=== PATIENT | female | born 1955 | race Caucasian/White ===

== ENCOUNTER → 2017-05-04 09:34 | Outpatient (CLI) | payer BC, SELFPAY ==
[2017-05-04 11:17] LABS: Alanine Aminotransferase 18 U/L (12-78); Albumin Level 3.8 gm/dL (3.4-5.0); Albumin/Globulin Ratio 1.1 (1.1-1.8); Alkaline Phosphatase 103 U/L (46-116); Anion Gap 10.5 mEq/L (5-15); Aspartate Amino Transferase 14 U/L (15-37); Bilirubin,Total 0.4 mg/dL (0.2-1.0); Blood Urea Nitrogen 15 mg/dL (7-18); Calcium 8.7 mg/dL (8.5-10.1); Carbon Dioxide 31 mmol/L (21.0-32.0); Chloride 105 mmol/L (98-107); Chol/HDL Ratio 3.8 (1-3.5); Cholesterol 210 mg/dL (140-200); Creatinine,Serum 1.04 mg/dL (0.55-1.02); Estimated Glomerular Filt Rate 54 ml/min (>60); GFR (African American) 65 ML/MIN (>60); Globulin 3.4 gm/dl (1.3-3.2); Glucose 102 mg/dL (74-106); HDL Cholesterol 56 mg/dL (29-89); LDL Cholesterol 143 mg/dL (0-130); Potassium 4.5 mmoL/L (3.5-5.1); Sodium 142 mmol/L (136-145); Total Protein,Serum 7.2 gm/dL (6.4-8.2); Triglycerides 56 mg/dL (30-200); VLDL Cholesterol 11 mg/dL (0-40)
== END ==
PROVIDERS: PCP Nurse Practitioner Family; Visit Provider Nurse Practitioner Family
DX: M19.90 Unspecified osteoarthritis, unspecified site (principal); Z13.220 Encounter for screening for lipoid disorders
CPT/HCPCS: 36415; 80053; 80061

== ENCOUNTER → 2017-09-08 15:19 | Outpatient (CLI) | payer BC, SELFPAY ==
--- NOTE | 2017-09-08 15:37 | XR_ITS ---
XR chest 2V HISTORY: ITS.REASON: HTN,H/O TOBACCO USE ORDERING PHYSICIAN: Tabatha Santizo PATIENT AGE: 61 years COMPARISON: None FINDINGS: Unremarkable cardiovascular structures. COPD. No lobar consolidation or collapse. Minimal atelectatic or fibrotic changes are present in the left lung base. There are mild degenerative changes in the lower thoracic spine. IMPRESSION: COPD, no acute finding
== END ==
PROVIDERS: PCP Nurse Practitioner Family; Visit Provider Nurse Practitioner Family
DX: Z01.818 Encounter for other preprocedural examination (principal)
CPT/HCPCS: 71046

== ENCOUNTER → 2018-06-29 09:35 | Outpatient (CLI) | payer BC, SELFPAY ==
[2018-06-29 09:58] LABS: Basophils % 0.6 % (0.1-2.0); Eosinophils # 0.1 K/mm3 (0.0-0.4); Eosinophils % 1.3 % (0.1-12.0); Hematocrit 42.8 % (37.0-47.0); Hemoglobin 14.4 g/dL (12.2-16.2); Lymphocytes # 0.9 K/mm3 (0.7-4.5); Lymphocytes % 19.4 % (10-50); Mean Corpuscular HGB Conc 33.7 g/dL (31.8-35.4); Mean Corpuscular Hemoglobin 28.5 pg (27.0-31.2); Mean Corpuscular Volume 84.6 fl (81-99); Mean Platelet Volume 7.1 fl (7.4-10.4); Monocytes # 0.3 K/mm3 (0.1-1.0); Neutrophils # 3.4 K/mm3 (1.8-7.8); Neutrophils % 72.7 % (37.0-80.0); Platelet Count 217 K/mm3 (142-424); Red Blood Count 5.06 M/mm3 (4.20-5.40); Red Cell Distribution Width 14.5 % (11.5-17.5); White Blood Count 4.7 K/mm3 (4.8-10.8)
[2018-06-29 13:45] LABS: Hemoglobin A1C 6.2 % (0.0-7.0)
[2018-06-29 16:39] LABS: Alanine Aminotransferase 29 U/L (12-78); Albumin Level 3.7 gm/dL (3.4-5.0); Albumin/Globulin Ratio 0.9 (1.1-1.8); Alkaline Phosphatase 96 U/L (46-116); Anion Gap 14.4 mEq/L (5-15); Aspartate Amino Transferase 22 U/L (15-37); Bilirubin,Total 0.6 mg/dL (0.2-1.0); Blood Urea Nitrogen 15 mg/dL (7-18); Calcium 8.9 mg/dL (8.5-10.1); Carbon Dioxide 26 mmol/L (21.0-32.0); Chloride 106 mmol/L (98-107); Chol/HDL Ratio 5.8 (1-3.5); Cholesterol 243 mg/dL (140-200); Estimated Glomerular Filt Rate 50 ml/min (>60); GFR (African American) 61 ML/MIN (>60); Globulin 3.9 gm/dl (1.3-3.2); Glucose 116 mg/dL (74-106); HDL Cholesterol 42 mg/dL (29-89); LDL Cholesterol 178 mg/dL (0-130); Potassium 4.4 mmoL/L (3.5-5.1); Sodium 142 mmol/L (136-145); Thyroid Stimulating Hormone 1.88 uIU/ml (0.358-3.740); Total Protein,Serum 7.6 gm/dL (6.4-8.2); Triglycerides 115 mg/dL (30-200); VLDL Cholesterol 23 mg/dL (0-40)
== END ==
PROVIDERS: Visit Provider Nurse Practitioner Family
DX: R53.83 Other fatigue (principal); I10 Essential (primary) hypertension; Z13.29 Encounter for screening for other suspected endocrine disorder; Z13.220 Encounter for screening for lipoid disorders; Z13.1 Encounter for screening for diabetes mellitus
CPT/HCPCS: 36415; 80053; 80061; 83036; 84443; 85025

== ENCOUNTER → 2019-05-03 16:43 | Outpatient (CLI) | payer BC, SELFPAY ==
--- NOTE | 2019-05-03 16:51 | XR_ITS ---
PROCEDURE: XR SHOULDER LT MIN 2V CLINICAL INDICATION: NECK AND SHOULDER PAIN COMPARISON: No exams were available for comparison FINDINGS: Osteoarthritic changes are present at the glenohumeral joint with osteophyte formation along the medial aspect of the humeral head. A rounded calcific density is present in the axillary region may be due to a synovial osteo chondroma medial to the proximal aspect of the humeral neck. Minimal osteoarthritic change AC joint. No acute fracture or dislocation. 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
--- NOTE | 2019-05-03 16:51 | XR_ITS ---
PROCEDURE: XR CERVICAL SPINE MIN 6V CLINICAL INDICATION: NECK AND SHOULDER PAIN COMPARISON: No exams were available for comparison FINDINGS: There is straightening of the cervical lordosis. There is severe degenerative disc disease at C4-C5 and moderate degenerative disc disease at C5-C6. There is slight reversal of lower cervical lordosis. Foraminal narrowing is present on the right at C5-C6 and on the left at C5-C6. There is carotid artery calcification on the left. IMPRESSION: Severe degenerative disc disease at C4-C5 and C5-C6 with bilateral foraminal narrowing at C5-C6 Dictated by: Bob Magaña MD 05/04/2019 05:47 Electronically signed by Bob Magaña MD in [place] 05/04/2019 05:47
--- NOTE | 2019-05-03 16:51 | XR_ITS ---
PROCEDURE: XR SHOULDER RT MIN 2V CLINICAL INDICATION: NECK AND SHOULDER PAIN COMPARISON: No exams were available for comparison FINDINGS: There are mild osteoarthritic changes of the glenohumeral joint and acromioclavicular joint. No fracture or dislocation. No lytic or blastic change. Mild subacromial stenosis. IMPRESSION: Mild osteoarthritis Dictated by: Bob Magaña MD 05/03/2019 17:31 Electronically signed by Bob Magaña MD in [place] 05/03/2019 17:31
== END ==
PROVIDERS: PCP Nurse Practitioner Family; Visit Provider Nurse Practitioner Family
DX: M54.2 Cervicalgia (principal); M25.512 Pain in left shoulder; M25.511 Pain in right shoulder
CPT/HCPCS: 72052; 73030

== ENCOUNTER → 2020-10-02 08:24 | Outpatient (CLI) | payer BC, SELFPAY ==
--- NOTE | 2020-10-02 08:41 | XR_ITS ---
PROCEDURE: XR KNEE LT 3V CLINICAL INDICATION: LT KNEE PAIN COMPARISON: No exams were available for comparison FINDINGS: Moderate degenerative change of the medial joint compartment and patellofemoral joint with mild degenerative change of the lateral joint compartment. Moderate joint effusion. No acute fracture or dislocation. No lytic or blastic lesion. IMPRESSION: Tricompartmental degenerative changes with moderate joint effusion. No acute fracture or dislocation. Dictated by: Christiano Gonzalez 10/02/2020 10:44 Christiano Gonzalez in [place] 10/02/2020 10:44
== END ==
PROVIDERS: PCP Nurse Practitioner Family; Visit Provider Nurse Practitioner Family
DX: M25.562 Pain in left knee (principal)
CPT/HCPCS: 73562

== ENCOUNTER → 2021-01-30 12:28 | Outpatient (CLI) | payer BC, SELFPAY ==
--- NOTE | 2021-01-30 12:34 | XR_ITS ---
PROCEDURE: XR KNEE LT 4V CLINICAL INDICATION: left knee pain;weightbearing COMPARISON: CR XR KNEE LT 3V from 10/02/2020 FINDINGS: No fracture or dislocation. No lytic or blastic change. There is normal mineralization. There are mild osteoarthritic changes of the medial compartment and patellofemoral joint. The joint space narrowing more pronounced on the weight-bearing views when compared to the nonweightbearing exam of 10/02/2020 IMPRESSION: Mild osteoarthritis greatest at the medial compartment Dictated by: Bob Magaña MD 01/30/2021 17:34 Bob Magaña MD in [place] 01/30/2021 17:34
== END ==
PROVIDERS: PCP Family Medicine; Visit Provider Orthopaedic Surgery
DX: M25.562 Pain in left knee (principal)
CPT/HCPCS: 73564

== ENCOUNTER → 2021-04-08 09:23 | Outpatient (POV) | payer BC, SELFPAY ==
[2021-04-08 10:35] VITALS: BP 184/90; PULSE 83; RESP 18; O2SAT 98
--- NOTE | 2021-04-08 10:56 | HMH.PMCON ---
Assessment and Plan (1) Osteoarthritis of knee, unilateral Status: Acute Category: Medical Code(s): M17.10 - Unilateral primary osteoarthritis, unspecified knee (2) Pes anserinus bursitis of left knee Status: Acute Category: Medical Code(s): M70.52 - Other bursitis of knee, left knee - Assessment and plan all Dx Assessment and Plan for all problems:: Ordering Physician: Thor Bobo MD Date of Service: 01/30/21 Procedure(s): XR knee LT 4V Accession Number(s): [id number] cc: Bob Magaña MD; Tony Hanson MD~ PROCEDURE: XR KNEE LT 4V CLINICAL INDICATION: left knee pain;weightbearing COMPARISON: CR XR KNEE LT 3V from 10/02/2020 FINDINGS: No fracture or dislocation. No lytic or blastic change. There is normal mineralization. There are mild osteoarthritic changes of the medial compartment and patellofemoral joint. The joint space narrowing more pronounced on the weight-bearing views when compared to the nonweightbearing exam of 10/02/2020 IMPRESSION: Mild osteoarthritis greatest at the medial compartment Dictated by: Bob Magaña MD 01/30/2021 17:34 Bob Magaña MD in [place] 01/30/2021 17:34 Patient says that she injured her left knee in June 2020. She is unsure if she had intraarticular injection in her left knee before. She has not tried physical therapy. For pain, she currently takes ibuprofen and alleve. She also uses a topical cream for her knee that seems to help some of the discomfort. Her left medial knee is tender to palpation. We will schedule an MRI of her left knee. We we will also schedule the patient for a left Pes Anserine Bursa injection. Risks and benefits of the procedure have been explained to the patient. Patient would like to proceed with the procedure. Patient has been instructed to contact the clinic with any concerns before the next appointment. Dr. Ghosh has reviewed this note and agrees with this plan of care. This note was dictated using voice recognition software and make contain errors or omissions. HPI - Data of Consult Patient: new to practice Consult date: 04/08/21 Requesting Physician: Siena Rey APRN - Consult Narrative Reason for consult: left knee pain History of present illness: Ms. Che is a 65 year old female who comes in as a new patient. Patient is referred by Tabatha Santizo for left knee pain. Patient states that she injured her left knee at the end of June 2020. Patient did not think much of it at that time but feels like it has gotten worse in the following months. She says that she could not handle walking for long periods of time. The left knee pain is worse usually at the end of the day. Patient went to see Dr. Patton at [facility] because he did her right hip surgery. Patient says that they wanted to do a left knee replacement right away and she did not think that her knee needs surgery right now. She says that they did a knee injection but is unsure of what kind of injection that she had. Her left knee x-ray on 01/30/2021 shows mild osteoarthritis especially in the medial compartment. Today, patient is complaining of pain and swelling at the medial aspect of the knee. She currently takes 2 ibuprofen in the morning and 1 alleve in the evening to manage her pain. She is also using a topical cream for her knee which relieves her discomfort for about an hour. She rates her pain today as 10 out of 10. Her Sony is [phone] and she is currently not on any scheduled medications. CC: Siena Rey APRN [facility] History I have reviewed the patient's past medical history: Yes *Have you ever received a pneumonia vaccine?: No *Have you received a flu vaccine this season?: Yes - *Social History Smoking Status: Current every day smoker Alcohol Intake: current *Occupational Status:: employed *Travel in the last 8 weeks: None Family Hx:: No significant family history Review of Systems - Review of Systems Review of System
== END ==
PROVIDERS: Visit Provider Clinical Nurse Specialist Family Health
DX: M17.0 Bilateral primary osteoarthritis of knee (principal); M70.52 Other bursitis of knee, left knee
CPT/HCPCS: 99202; G0463

== ENCOUNTER → 2021-09-04 07:30 | Outpatient (CLI) | payer BC, SELFPAY ==
[2021-09-04 08:35] LABS: Alanine Aminotransferase 25 U/L (12-78); Albumin Level 4.2 g/dl (3.5-5.0); Albumin/Globulin Ratio 1.6 (1.1-1.8); Alkaline Phosphatase 79 U/L (38-126); Anion Gap 9.2 mEq/L (5-15); Aspartate Amino Transferase 29 U/L (14-36); Bilirubin,Total 0.7 mg/dl (0.2-1.3); Blood Urea Nitrogen 14 mg/dl (7-17); Calcium 9.2 mg/dl (8.4-10.2); Carbon Dioxide 31 mmol/L (22.0-30.0); Chloride 105 mmol/L (98-107); Estimated Glomerular Filt Rate 50 ml/min (>60); GFR (African American) 60 ML/MIN (>60); Globulin 2.6 g/dL (1.3-3.2); Glucose 119 mg/dl (74-100); Potassium 4.2 mmoL/L (3.5-5.1); Sodium 141 mmol/L (136-145); Total Protein,Serum 6.8 g/dl (6.3-8.2)
== END ==
PROVIDERS: Visit Provider Nurse Practitioner Family
DX: I10 Essential (primary) hypertension (principal)
CPT/HCPCS: 36415; 80053

== ENCOUNTER → 2021-09-19 13:33 | Outpatient (CLI) | payer BC, SELFPAY ==
[2021-09-19 14:37] LABS: Basophils # 0.1 K/mm3 (0-0.2); Basophils % 0.9 % (0.1-2.0); Eosinophils # 0.1 K/mm3 (0.0-0.4); Hematocrit 42.4 % (37.0-47.0); Hemoglobin 13.9 g/dL (12.2-16.2); Lymphocytes # 1.1 K/mm3 (0.7-4.5); Lymphocytes % 20.5 % (10-50); Mean Corpuscular HGB Conc 32.8 g/dL (31.8-35.4); Mean Corpuscular Hemoglobin 29.1 pg (27.0-31.2); Mean Corpuscular Volume 88.7 fl (81-99); Mean Platelet Volume 8.1 fl (7.4-10.4); Monocytes # 0.5 K/mm3 (0.1-1.0); Monocytes % 9.1 % (1.7-9.3); Neutrophils # 3.7 K/mm3 (1.8-7.8); Neutrophils % 68.6 % (37.0-80.0); Platelet Count 203 K/mm3 (142-424); Red Blood Count 4.78 M/mm3 (4.20-5.40); Red Cell Distribution Width 13.9 % (11.5-17.5); White Blood Count 5.4 K/mm3 (4.8-10.8)
[2021-09-19 14:45] LABS: Activated Partial Thrombo Time 25.4 seconds (22.8-30.6); INR 0.95 (0.9-1.1); Prothrombin Time 10.8 seconds (10.1-12.5)
[2021-09-19 15:03] LABS: Alanine Aminotransferase 21 U/L (12-78); Albumin Level 3.8 g/dl (3.5-5.0); Albumin/Globulin Ratio 1.4 (1.1-1.8); Alkaline Phosphatase 74 U/L (38-126); Anion Gap 9.2 mEq/L (5-15); Aspartate Amino Transferase 26 U/L (14-36); Bilirubin,Total 0.8 mg/dl (0.2-1.3); Blood Urea Nitrogen 18 mg/dl (7-17); Calcium 8.9 mg/dl (8.4-10.2); Carbon Dioxide 29 mmol/L (22.0-30.0); Chloride 106 mmol/L (98-107); Estimated Glomerular Filt Rate 56 ml/min (>60); GFR (African American) 67 ML/MIN (>60); Globulin 2.7 g/dL (1.3-3.2); Glucose 100 mg/dl (74-100); Potassium 4.2 mmoL/L (3.5-5.1); Sodium 140 mmol/L (136-145); Total Protein,Serum 6.5 g/dl (6.3-8.2)
[2021-09-19 18:12] LABS: Hemoglobin A1C 6.2 % (4.0-6.0)
[2021-09-21 09:28] LABS: Prealbumin 23 mg/dL (10-36)
== END ==
PROVIDERS: PCP Family Medicine; Visit Provider Family Medicine
DX: Z01.818 Encounter for other preprocedural examination (principal)
CPT/HCPCS: 36415; 80053; 83036; 84134; 85025; 85610; 85730

== ENCOUNTER → 2022-02-13 16:06 | Outpatient (CLI) | payer BC, SELFPAY ==
--- NOTE | 2022-02-13 16:38 | XR_ITS ---
PROCEDURE INFORMATION: Exam: XR Chest Exam date and time: 02/13/2022 4:41 PM Age: 66 years old Clinical indication: Cough; Additional info: Bronchitis TECHNIQUE: Imaging protocol: Radiologic exam of the chest. Views: 2 views. COMPARISON: CR CXR2V XR chest 2V 09/08/2017 3:47 PM FINDINGS: Lungs: Emphysematous change and interstitial prominence. Pleural spaces: No pleural effusion. Heart: No cardiomegaly. Bones/joints: Degenerative change. Pennie: Right hilar nodularity, which can be better evaluated with contrast enhanced CT if clinically indicated. IMPRESSION: 1. Emphysematous change and interstitial prominence. 2. Right hilar nodularity, which can be better evaluated with contrast enhanced CT if clinically indicated.
== END ==
PROVIDERS: PCP Family Medicine; Visit Provider Nurse Practitioner Family
DX: J40 Bronchitis, not specified as acute or chronic (principal)
CPT/HCPCS: 71046

== ENCOUNTER → 2022-02-22 08:26 | Outpatient (CLI) | payer BC, SELFPAY ==
[2022-02-22 09:44] LABS: Blood Urea Nitrogen 16 mg/dl (7-17); Estimated Glomerular Filt Rate 55 ml/min (>60); GFR (African American) 67 ML/MIN (>60)
== END ==
PROVIDERS: Nurse Practitioner Family; PCP Family Medicine; Visit Provider Family Medicine
DX: R93.89 Abnormal findings on diagnostic imaging of other specified body structures (principal)
CPT/HCPCS: 36415; 82565; 84520

== ENCOUNTER → 2022-02-24 13:01 | Outpatient (CLI) | payer BC, SELFPAY ==
--- NOTE | 2022-02-24 13:04 | CT_ITS ---
FINAL REPORT TECHNIQUE: After the administration of intravenous contrast, axial images through the chest were performed by computed tomography.This study was performed with techniques to keep radiation doses as low as reasonably achievable, (ALARA). Individualized dose reduction techniques using automated exposure control or adjustment of mA and/or kV according to the patient''s size were employed. CLINICAL HISTORY: ABNORMAL CXR, soa COMPARISON: Plain radiographs dated September 08, 2017 FINDINGS: There is no axillary adenopathy. There are abnormally enlarged and partially calcified mediastinal and hilar lymph nodes. A precarinal lymph node measures up to 2.8 cm. A subcarinal node measures 3.4 x 2.1 cm. The heart size is normal. There is no pericardial or pleural effusion. Limited images of the upper abdomen demonstrate mild fatty infiltration of the liver. There is a small sliding-type hiatal hernia. There is biapical pleural and parenchymal scarring. No suspicious infiltrate or nodule identified. IMPRESSION: Moderate partially calcified mediastinal and hilar adenopathy. Favor this to be related to old granulomatous disease. Correlate with prior CT could confirm. Reviewed, Interpreted and Dictated by Pj Valentino MD Transcribed by Cesar Hernandez Authenticated and [facility]
== END ==
PROVIDERS: PCP Family Medicine; Visit Provider Nurse Practitioner Family
DX: R93.89 Abnormal findings on diagnostic imaging of other specified body structures (principal)
CPT/HCPCS: 71260; Q9967

== ENCOUNTER → 2022-02-26 16:12 | Outpatient (CLI) | payer BC, SELFPAY ==
[2022-02-26 16:56] LABS: Basophils # 0.1 K/mm3 (0-0.2); Basophils % 0.8 % (0.1-2.0); Eosinophils # 0.1 K/mm3 (0.0-0.4); Eosinophils % 1.2 % (0.1-12.0); Hematocrit 43.4 % (37.0-47.0); Hemoglobin 13.9 g/dL (12.2-16.2); Lymphocytes # 1.1 K/mm3 (0.7-4.5); Lymphocytes % 19.1 % (10-50); Mean Corpuscular HGB Conc 32.1 g/dL (31.8-35.4); Mean Corpuscular Hemoglobin 28.4 pg (27.0-31.2); Mean Corpuscular Volume 88.6 fl (81-99); Mean Platelet Volume 8.1 fl (7.4-10.4); Monocytes # 0.4 K/mm3 (0.1-1.0); Monocytes % 6.8 % (1.7-9.3); Neutrophils # 4.3 K/mm3 (1.8-7.8); Neutrophils % 72.1 % (37.0-80.0); Platelet Count 229 K/mm3 (142-424); Red Cell Distribution Width 14.3 % (11.5-17.5)
[2022-02-26 18:06] LABS: Chloride 101 mmol/L (98-107); Sodium 141 mmol/L (136-145)
[2022-02-26 18:07] LABS: Potassium 3.8 mmoL/L (3.5-5.1)
[2022-02-26 18:09] LABS: Alanine Aminotransferase 25 U/L (12-78); Albumin Level 4.2 g/dl (3.5-5.0); Albumin/Globulin Ratio 1.5 (1.1-1.8); Alkaline Phosphatase 93 U/L (38-126); Anion Gap 13.8 mEq/L (5-15); Aspartate Amino Transferase 30 U/L (14-36); Bilirubin,Total 0.4 mg/dl (0.2-1.3); Blood Urea Nitrogen 14 mg/dl (7-17); Calcium 9.6 mg/dl (8.4-10.2); Carbon Dioxide 30 mmol/L (22.0-30.0); Estimated Glomerular Filt Rate 50 ml/min (>60); GFR (African American) 60 ML/MIN (>60); Globulin 2.8 g/dL (1.3-3.2); Glucose 138 mg/dl (74-100)
[2022-02-28 14:11] LABS: Angiotensin Converting Enzyme <15 U/L (14-82)
[2022-03-07 00:07] LABS: D001-IgE D pteronyssinus <0.10 kU/L (Class 0); D002-IgE D farinae <0.10 kU/L (Class 0); E001-IgE Cat Dander <0.10 kU/L (Class 0); E005-IgE Dog Dander <0.10 kU/L (Class 0); E072-IgE Mouse Urine <0.10 kU/L (Class 0); G002-IgE Bermuda Grass <0.10 kU/L (Class 0); G006-IgE Timothy Grass <0.10 kU/L (Class 0); I006-IgE Cockroach, German <0.10 kU/L (Class 0); Immunoglobulin E, Total 42 IU/mL (6-495); M001-IgE Penicillium chrysogen <0.10 kU/L (Class 0); M002-IgE Cladosporium herbarum <0.10 kU/L (Class 0); M003-IgE Aspergillus fumigatus <0.10 kU/L (Class 0); M006-IgE Alternaria alternata <0.10 kU/L (Class 0); T001-IgE Maple/Box Elder <0.10 kU/L (Class 0); T003-IgE Common Silver Birch <0.10 kU/L (Class 0); T006-IgE Cedar, Mountain <0.10 kU/L (Class 0); T007-IgE Oak, White <0.10 kU/L (Class 0); T008-IgE Elm, American <0.10 kU/L (Class 0); T010-IgE Walnut <0.10 kU/L (Class 0); T011-IgE Maple Leaf Sycamore <0.10 kU/L (Class 0); T014-IgE Cottonwood <0.10 kU/L (Class 0); T015-IgE Ash, White <0.10 kU/L (Class 0); T022-IgE Pecan, Hickory <0.10 kU/L (Class 0); T070-IgE White Mulberry <0.10 kU/L (Class 0); W001-IgE Ragweed, Short <0.10 kU/L (Class 0); W011-IgE Thistle, Russian <0.10 kU/L (Class 0); W014-IgE Pigweed, Common <0.10 kU/L (Class 0); W018-IgE Sheep Sorrel <0.10 kU/L (Class 0)
== END ==
PROVIDERS: PCP Family Medicine; Visit Provider Internal Medicine Pulmonary Disease
DX: R06.09 Other forms of dyspnea (principal); J45.909 Unspecified asthma, uncomplicated; J84.9 Interstitial pulmonary disease, unspecified
CPT/HCPCS: 36415; 80053; 82164; 82785; 85025; 86003; 86140

== ENCOUNTER → 2022-03-26 12:40 | Outpatient (CLI) | payer BC, SELFPAY ==
[2022-03-26 13:50] VITALS: PULSE 65; PULSE 70
== END ==
PROVIDERS: PCP Family Medicine; Visit Provider Internal Medicine Pulmonary Disease
DX: R06.09 Other forms of dyspnea (principal)
CPT/HCPCS: 94060; 94618; 94640; 94727; 94729

== ENCOUNTER 2023-10-12 12:32 | Outpatient (CLI) | payer BC, SELFPAY ==
--- OUTSIDE RECORDS SUMMARY | 2023-10-12 12:37 | XMS_ITS | Clinical Summary ---
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 Name Role Phone Abdi PRIETO, Micah Moralez Unavailable + [phone] NELSON GUERRERO MD Primary Care Provider [phone] Nelson Sidhu Unavailable Unavailable Reason for Visit and Chief Complaint The Chief Complaint is: r wrist pain Problems Includes: Problems addressed during this encounter and other active Problems Current Visit Onset Date Resolved Date Provider Conditio n Status Joint Pain, Localized in the Right Wrist 09/30/2023 Thomas Messina MD Active Last Documented On 4 8:26AM ; [facility], [facility] Past Visits Onset Date Resolved Date Provider Condition Status Joint Pain, Localized in the Left Shoulder 08/06/2023 Yanira Nolen PA-C Active Last Documented On 4 10:24AM ; [facility], [facility] Joint Pain, Localized in the Hip 06/25/2017 Redd Patton MD Active Last Documented On 8 3:19PM ; [facility], [facility] Plan of Treatment - Patient screened for future fall risk: documentation of any fall with injury in past year - Last Documented On 10/05/2023 10:22PM ; [facility], [facility] Fall Risk Assessment: This patient has been identified as a fall risk. Balance/gait along with postural blood pressure, vision and home fall hazards have been assessed. Medications have been reviewed, and recommendations made with regard to contributing factors for future falls. Plan of care: Consideration of vitamin D supplementation along with balance and strength training with consideration for formal physical therapy has been discussed with the patient. - Last Documented On 10/05/2023 10:22PM ; [facility], [facility] I explained to the patient that there is a ganglion cyst over the volar aspect R wrist. We discussed the course of treatment including leaving the cyst be as it does not have to be removed versus surgical excision. Patient states she would like this removed as it is bothersome. We will schedule the patient for excision R wrist ganglion cyst (volar) under general anesthesia. We will see them back postoperatively. I have explained the risks, benefits, and alternatives to surgery. I have answered the patient's questions in detail. Patient understands the risk of recurrence with surgical excision, and also understands the cyst may resolve on its own. - Last Documented On 10/05/2023 10:22PM ; [facility], [facility] Future Appointments Date Time Location [facility] Surgery Suites 10/27/2023 11:30AM Surgery Thomas crawford MD Last Documented On 4 12:24PM ; [facility] Follow Up 11/04/2023 9:45AM [facility] Bu karlo Adams MD Last Documented On 4 3:25PM ; [facility], [facility] Post Op 11/09/2023 9:00AM [facility] PS C Thomas Messina MD Last Documented On 4 3:28PM ; [facility], [facility] Assessments Includes: Assessments from this encounter No Assessments Recorded Medical Equipment - Implanted Devices Includes: Current Devices No Medical Equipment Recorded Medications Includes: Medications discussed during this encounter and other current Medications Current Medications (continue as prescribed) Lisinopril 20 MG Oral Tablet 07/20/2023 Provider: UMER MADISON MD Diagnosis: Last Documented On 4 10:24AM By Yvette Bedoya ; [facility], [facility] Lisinopril 20 MG Oral Tablet 10/25/2022 Provider: UMER MADISON MD Diagnosis: Last Documented On 3 8:32AM By Haresh Fontenot ; [facility] predniSONE 10 MG Oral Tablet 05/28/2022 Provider: Diagnosis: Last Documented On 3 8:32AM By Haresh Fontenot ; [facility], [facility] Advair Diskus 500-50 MCG/ACT Inhalation Aerosol Powder Breath Activated 05/26/2022 Provider: Diagnosis: Last Documented On 3 8:32AM By Haresh Fontenot ; [facility], [facility] Albuterol Sulfate HFA 108 (9 0 Base) MCG/ACT Inhalation Aerosol Solution 10/29/2021 Provider: Bella Luna on Bilingual Trainer Diagnosis: Last Documented On 2 10:09AM By Briana Aguilar ; [facility], [facility] Past Medications on file Lisinopril 20 MG Oral Tablet 11/19/2021 - 12/19/2021 Anoop juarez: Diagnosis: Last Documented On 2 3:15PM By Анна Davila ; [facility], [facility] traMADol HCl 50 MG Oral Tablet 10/18/2021 - 10/23/2021 Provider: Micah booker MD Diagnosis: 1-2 po q 4-6h Last Documented On 2 10:48AM By Beto Patton ; [facility], [facility] Ondansetron HCl 4 MG Oral Tablet 09/26/2021 - 10/01/2021 Provider: Micah Patton MD Diagnosis: 5slu7-3p Last Documented On 2 10:59AM By Bindu Villaseñor ; [facility], [facility] Acetaminophen 500 MG Oral Tablet 09/24/2021 - 10/24/2021 Provider: Micah Patton MD Diagnosis: 2 three times a day DNF UNTIL 09-25-21 Last Documented On 2 11:28AM By Beto Patton ; [facility] oxyCODONE HCl 5 MG Oral Tablet 09/24/2021 - 09/29/2021 Provider: Micah booker MD Diagnosis: 1-2 po q 4-6h DNF UNTIL 09-25-21 Last Documented On 2 11:28AM By Beto Patton ; [facility] traMADol HCl 50 MG Oral Tablet 09/24/2021 - 09/29/2021 Provider: Micah booker MD Diagnosis: 1-2 po q 4-6h DNF UNTIL 09-25-21 Last Documented On 2 11:28AM By Beto Patton ; [facility] Meloxicam 15 MG Oral Tablet 09/24/2021 - 10/24/2021 Provider: Micah booker MD Diagnosis: once a day DNF UNTIL 09-25-21 Last Documented On 2 11:28AM By Beto Patton ; [facility] Cefadroxil 500 MG Oral Capsule 09/24/2021 - 09/27/2021 Provider: Micah booker MD Diagnosis: twice a day DNF UNTIL 09-25-21 Last Documented On 2 11:28AM By Beto Patton ; [facility], [facility] Lidocaine 5% External Patch 01/03/2021 - 03/04/2021 Provider: Micah booker MD Diagnosis: once a day Last Documented On 1 3:45PM By Beto Patton ; [facility], [facility] Mupirocin 2% External Ointment 09/01/2017 - 09/06/2017 Provider: Micah booker MD Diagnosis: Apply to nostrils 3 time a d ay 5 days prior to surgery. Last Documented On 8 2:23PM By Katiana Awad ; [facility], [facility] TraMADol HCl 50MG Oral Tablet 08/28/2017 - 09/12/2017 Provider: Micah booker MD Diagnosis: Take 1-2 tablet every 8 hrs prn pain Last Documented On 8 3:39PM By Katiana Awad ; [facility], [facility] Celecoxib 50MG Oral Capsule 06/25/2017 - 07/25/2017 Provider: Micah booker MD Diagnosis: 2 once a day with food and plenty of water Last Documented On 8 4:54PM By Danny Rebollar ; [facility], [facility] Medications Administered Includes: Administered Medications from this encounter No Administered Medications Recorded Vital Signs Includes: Vital Signs from this encounter Vital Name 09/30/2023 08:27A Height (in) 72 Weight (lb) 232 Body Mass Index 31.5 Body Surface Area 2.3 Note: jl Last Documented: On 09/30/2023 8:27AM ; [facility], [facility] Results Includes: Results discussed during this encounter No Results Recorded For Specified Dates History of Present Illness Includes: History of Present Illness from this encounter SHABNAM Che is a 67 year old female. - Allergy list reviewed - Problem list reviewed - Medication list reviewed Patient is a 67 year old female that is here today with complaints of pain in the right wrist. She states she has noticed a cyst over the R wrist volar aspect for approximately two years. She states she was previously evaluated by a general surgeon who she does not recall his name, but stated that he did not operate on this type of cyst. She states she feels the cyst is beginning to hurt and is getting larger in size. Social History Description Last Updated Tobacco non-user 08/06/2023 Last Documented On 4 8:27AM ; [facility] No recent change in diet 11/21/2021 Last Documented On 4 8:27AM ; [facility] Not a current smoker. 11/21/2021 Last Documented On 4 8:27AM ; [facility] Not using drugs 11/21/2021 Last Documented On 4 8:27AM ; [facility] Not a smoker 11/21/2021 Last Documented On 4 8:27AM ; [facility] Non-smoker 11/08/2020 Last Documented On 4 8:27AM ; [facility] Caffeine use 11/08/2020 Last Documented On 4 8:27AM ; [facility] Exercising regularly 11/08/2020 Last Documented On 4 8:27AM ; [facility] Not a current smoker. 11/08/2020 Last Documented On 4 8:27AM ; [facility] Recent change in diet 11/08/2020 Last Documented On 4 8:27AM ; [facility], [facility] No tobacco use 06/25/2017 Last Documented On 4 8:27AM ; [facility], [facility] Smoking status : Never smoker 06/25/2017 Last Documented On 4 8:27AM ; [facility], [facility] Not a current smoker 06/25/2017 Last Documented On 4 8:27AM ; [facility], [facility] Not using alcohol 06/25/2017 Last Documented On 4 8:27AM ; [facility], [facility] Procedures and Surgical History Includes: Procedures from this encounter Procedures Code Diagnosis Performing Provider Service Location Service Date X-RAY EXAM OF WRIST 2 VIEWS (RIGHT) 60705 Ganglion, right wrist Thomas Messina MD [facility] 09/30/2023 Last Documented On 4 7:09AM ; [facility], [facility] Surgical History Last Updated History of hysterectomy 06/25/2017 Last Documented On 4 8:27AM ; [facility] Medical History Includes: Medical History addressed during this encounter Description Last Updated History of Sleep Apnea 08/06/2023 Last Documented On 4 8:27AM ; [facility] History of asthma 11/21/2021 Last Documented On 4 8:27AM ; [facility], [facility] History of Hypertension 11/21/2021 Last Documented On 4 8:27AM ; [facility], [facility] History of Gallbladder 11/08/2020 Last Documented On 4 8:27AM ; [facility], [facility] Hypertension 11/08/2020 Last Documented On 4 8:27AM ; [facility] Hysterectomy 11/08/2020 Last Documented On 4 8:27AM ; [facility], [facility] No recent immunization for flu Last Documented On 4 8:27AM ; [facility], [facility] No recent immunization for pneumococcal pneumonia 11/08/2020 Last Documented On 4 8:27AM ; [facility], [facility] Sleep Apnea 11/08/2020 Last Documented On 4 8:27AM ; [facility] Total hip replacement 11/08/2020 Last Documented On 4 8:27AM ; [facility] History of heart disease 06/25/2017 Last Documented On 4 8:27AM ; [facility], [facility] Family History Includes: Family History addressed during this encounter Description Last Updated Diabetes mellitus 11/08/2020 Last Documented On 4 8:27AM ; [facility] Family history of cancer 11/08/2020 Last Documented On 4 8:27AM ; [facility] Family history of heart disease 11/09/19 21 Last Documented On 4 8:27AM ; [facility] Family history of hypertension 1 Last Documented On 4 8:27AM ; [facility], [facility] Stroke / Seizures 11/08/2020 Last Documented On 4 8:27AM ; [facility] Sororal history of diabetes mellitus 11/2017 Last Documented On 4 8:27AM ; [facility] Fraternal history of family history of h eart disease 06/25/2017 Last Documented On 4 8:27AM ; [facility] Maternal history of diabetes mellitus Last Documented On 4 8:27AM ; [facility] Review of Systems Includes: Review of Systems from this encounter The patient is awake alert oriented in time place and person. Has normal mood and affect. Is neatly dressed. Has normal gait and station. Pupils are equal and react to light normally. Eyes move normally. Mucous membranes are moist. The patient has no trouble with speech. Normal circulation. Normal sensation. No thenar or intrinsic atrophy. Normal strength. Patient has a right volar ganglion cyst over the wrist. Mental Status Includes: Mental Status from this encounter No Mental Status Recorded Functional Status Includes: Functional Status from this encounter No Functional Status Recorded Physical Exam Includes: Physical Exam from this encounter Allergies Includes: Active Allergies No Known Allergies Encounters Encounter Provider Location Date Check-In Time Check-Out Time Diagnosis Physician Specified Thomas Messina MD [facility] 09/30/19 24 8:14AM 9:00AM Insurance Includes: Active Insurance Policies Plan Name Member ID Group # Subscriber Relationship Effect [id number] Susie Che Self 04/20/2017 - Unknown Clinical Notes Includes: Clinical Notes from this encounter * Progress note Date Encounter Last Documented by 09/30/2023 Physician Specified Steven amador on 10/05/2023; 10:22 PM, Thomas Messina MD; [facility] Active Problems & Conditions - Joint Pain, Localized in the Hip - Joint Pain, Localized in the Left Shoulder - Joint Pain, Localized in the Right Wrist Chief Complaint The Chief Complaint is: R wrist pain. History of Present Illness Susie Che is a 67 year old female. - Allergy list reviewed - Problem list reviewed - Medication list reviewed Patient is a 67 year old female that is here today with complaints of pain in the right wrist. She states she has noticed a cyst over the R wrist volar aspect for approximately two years. She states she was previously evaluated by a general surgeon who she does not recall his name, but stated that he did not operate on this type of cyst. She states she feels the cyst is beginning to hurt and is getting larger in size. Current Medication - Advair Diskus 500-50 MCG/ACT Inhalation Aerosol Powder Breath Activated 30 days, 0 refills - Albuterol Sulfate HFA 108 (90 Base) MCG/ACT Inhalation Aerosol Solution 16 days, 0 refills - Lisinopril 20 MG Oral Tablet 30 days, 0 refills - Lisinopril 20 MG Oral Tablet 90 days, 0 refills - predniSONE 10 MG Oral Tablet 5 days, 0 refills Past Medical/Surgical History Reported: Immunization History: No recent immunization for flu and not for pneumococcal pneumonia. Diagnoses: Heart disease. Asthma. Sleep Apnea. Sleep Apnea. Hypertension. Hypertension Surgical: - Hysterectomy - Hysterectomy - History of Gallbladder - Total hip replacement Social History Not a current smoker. Not a current smoker. Current diet: Recent change in diet. No recent change in diet. Caffeine use: Caffeine use. Tobacco use: No tobacco use and not a current smoker. Tobacco non-user. Not a smoker. Non-smoker. Smoking status: Never smoker. Alcohol: Not using alcohol. Drug Use: Not using drugs. Habits: Exercising regularly. Allergies - No Known Allergies Family History Cancer Heart disease Stroke / Seizures Diabetes mellitus Systemic hypertension Maternal: Diabetes mellitus Fraternal: Heart disease Sororal: Diabetes mellitus Review Of Systems The patient is awake alert oriented in time place and person. Has normal mood and affect. Is neatly dressed. Has normal gait and station. Pupils are equal and react to light normally. Eyes move normally. Mucous membranes are moist. The patient has no trouble with speech. Normal circulation. Normal sensation. No thenar or intrinsic atrophy. Normal strength. Patient has a right volar ganglion cyst over the wrist. Physical Findings - Vitals taken 09/30/2023 08:27 am jl Height 72 in 59 - 78 Weight 232 lbs 96 - 178 Body Mass Index 31.5 kg/m2 Body Surface Area 2.3 m2 Tests Xray 2 views of the right wrist taken in the office today shows mild DRUJ arthritis Plan - Patient screened for future fall risk: documentation of any fall with injury in past year Fall Risk Assessment: This patient has been identified as a fall risk. Balance/gait along with postural blood pressure, vision and home fall hazards have been assessed. Medications have been reviewed, and recommendations made with regard to contributing factors for future falls. Plan of care: Consideration of vitamin D supplementation along with balance and strength training with consideration for formal physical therapy has been discussed with the patient. I explained to the patient that there is a ganglion cyst over the volar aspect R wrist. We discussed the course of treatment including leaving the cyst be as it does not have to be removed versus surgical excision. Patient states she would like this removed as it is bothersome. We will schedule the patient for excision R wrist ganglion cyst (volar) under general anesthesia. We will see them back postoperatively. I have explained the risks, benefits, and alternatives to surgery. I have answered the patient's questions in detail. Patient understands the risk of recurrence with surgical excision, and also understands the cyst may resolve on its own. Care Team - Nelson Sidhu Notes transcribed by Connie Lacey This dictation was done with voice recognition software and may contain errors and omissions.
--- OUTSIDE RECORDS SUMMARY | 2023-10-12 12:37 | XMS_ITS | Clinical Summary ---
Author Name Unknown Address [address] [address] Phone Organization [facility] , [facility] Address [address] [place] [address] Phone Care Team Providers Care Federal Appellate Law Clerk Name Role Phone Abdi PREITO, Micah Moralez Unavailable U NELSON Sepulveda MD Primary Care Provider [phone] Nelson Sidhu Unavailable Unavailable Reason for Visit and Chief Complaint The Chief Complaint is: Left shoulder pain Problems Includes: Problems addressed during this encounter and other active Problems Current Visit Onset Date Resolved Date Provider Conditio n Status Joint Pain, Localized in the Left Shoulder 08/06/2023 Yanira Nolen PA-C Active Last Documented On 4 10:24AM ; [facility], [facility] Past Visits Onset Date Resolved Date Provider Condition Status Joint Pain, Localized in the Right Wrist 09/30/2023 Thomas Messina MD Active Last Documented On 4 8:26AM ; [facility], [facility] Joint Pain, Localized in the Hip 06/25/2017 Redd Patton MD Active Last Documented On 8 3:19PM ; [facility], [facility] Plan of Treatment Fall Risk Assessment: This patient has been [...] with the patient. - Last Documented On 08/06/2023 11:08AM ; [facility], [facility] She has had some chronic changes obviously. She does have arthritis but she has had a recent injury in a fall which I think has resulted in a rotator cuff tear I have recommended we get an MRI to further evaluate that to see what her options are surgically. She will see our surgeon when she returns - Last Documented On 08/06/2023 11:08AM ; [facility], [facility] Future Appointments Date Time Location Provi [facility] Outpa [facility] Surgery Suites 10/27/2023 11:30AM Surgery Thomas crawford MD Last Documented On 4 12:24PM ; [facility], [facility] Follow Up 11/04/2023 9:45AM [facility] Nils Adams MD Last Documented On 4 3:25PM ; [facility], [facility] Post Op 11/09/2023 9:00AM [facility] PS C Thomas Messina MD Last Documented On 4 3:28PM ; [facility], [facility] Instructions to patient Lose weight Last Documented On 4 10:25AM ; [facility], [facility] Assessments Includes: Assessments from this encounter Findings - Overweight - Last Documented On 08/06/2023 11:08AM ; [facility], [facility] Left cuff tear in the setting of arthritis - Last Documented On 08/06/2023 11:08AM ; [facility], [facility] Instructions Includes: Instructions from this encounter Instructions to patient Lose weight Last Documented On 4 10:25AM ; [facility], [facility] Medical Equipment - Implanted Devices Includes: Current Devices No Medical Equipment Recorded Medications Includes: Medications discussed during this encounter and other current Medications Current Medications (continue as prescribed) Lisinopril 20 MG Oral Tablet 07/20/2023 Provider: UMER MADISON MD Diagnosis: Last Documented On 4 10:24AM By Yvette Bedoya ; [facility], [facility] Lisinopril 20 MG Oral Tablet 10/25/2022 Provider: UMER MADISON MD Diagnosis: Last Documented On 3 8:32AM By Haresh Fontenot ; [facility], [facility] predniSONE 10 MG Oral Tablet 05/28/2022 Provider: Diagnosis: Last Documented On 3 8:32AM By Haresh Fontenot ; [facility] Advair Diskus 500-50 MCG/ACT Inhalation Aerosol Powder Breath Activated 05/26/2022 Provider: Diagnosis: Last Documented On 3 8:32AM By Haresh Fontenot ; [facility] Albuterol Sulfate HFA 108 (9 0 Base) MCG/ACT Inhalation Aerosol Solution 10/29/2021 Provider: Bella Luna on Exercise Equipment Repair Technician Diagnosis: Last Documented On 2 10:09AM By Briana Aguilar ; [facility], [facility] Past Medications on file Lisinopril 20 MG Oral Tablet 11/19/2021 - 12/19/2021 Anoop juarez: Diagnosis: Last Documented On 2 3:15PM By Анна Davila ; [facility], [facility] traMADol HCl 50 MG Oral Tablet 10/18/2021 - 10/23/2021 Provider: Micah booker MD Diagnosis: 1-2 po q 4-6h Last Documented On 2 10:48AM By Beto Patton ; [facility], [facility] Ondansetron HCl 4 MG Oral Tablet 09/26/2021 - 10/01/2021 Provider: Micah Patton MD Diagnosis: [id number] Last Documented On 2 10:59AM By Bindu Villaseñor ; [facility], [facility] Acetaminophen 500 MG Oral Tablet 09/24/2021 - 10/24/2021 Provider: Micah Patton MD Diagnosis: 2 three times a day DNF UNTIL 09-25-21 Last Documented On 2 11:28AM By Beto Patton ; [facility] oxyCODONE HCl 5 MG Oral Tablet 09/24/2021 - 09/29/2021 Provider: Micah booker MD Diagnosis: 1-2 po q 4-6h DNF UNTIL 09-25-21 Last Documented On 2 11:28AM By Beto Patton ; [facility] traMADol HCl 50 MG Oral Tablet 09/24/2021 - 09/29/2021 Provider: Micah booker MD Diagnosis: 1-2 po q 4-6h DNF UNTIL 09-25-21 Last Documented On 11:28AM By Beto Patton ; [facility] Meloxicam 15 MG Oral Tablet 09/24/2021 - 10/24/2021 Provider: Micah booker MD Diagnosis: once a day DNF UNTIL 09-25-21 Last Documented On 2 11:28AM By Beto Patton ; [facility] Cefadroxil 500 MG Oral Capsule 09/24/2021 - 09/27/2021 Provider: Micah booker MD Diagnosis: twice a day DNF UNTIL 09-25-21 Last Documented On 11:28AM By Beto Patton ; [facility] Lidocaine 5% External Patch 01/03/2021 - 03/04/2021 Provider: Micah booker MD Diagnosis: once a day Last Documented On 3:45PM By Beto Patton ; [facility], [facility] Mupirocin 2% External Ointment 09/01/2017 - 09/06/2017 Provider: Micah booker MD Diagnosis: Apply to nostrils 3 time a d ay 5 days prior to surgery. Last Documented On 8 2:23PM By Katiana Awad ; [facility], [facility] TraMADol HCl 50MG Oral Tablet 08/28/2017 - 09/12/2017 Provider: Micah booker MD Diagnosis: Take 1-2 tablet every 8 hrs prn pain Last Documented On 8 3:39PM By Katiana Awad ; [facility], [facility] Celecoxib 50MG Oral Capsule 06/25/2017 - 07/25/2017 Provider: Micah booker MD Diagnosis: 2 once a day with food and plenty of water Last Documented On 8 4:54PM By Danny Rebollar ; [facility], [facility] Medications Administered Includes: Administered Medications from this encounter No Administered Medications Recorded Vital Signs Includes: Vital Signs from this encounter Vital Name 08/06/2023 10:24A Height (in) 72 Weight (lb) 232 Body Mass Index 31.5 Body Surface Area 2.3 Note: hdv Last Documented: On 08/06/2023 10:25A M ; [facility] Results Includes: Results discussed during this encounter No Results Recorded For Specified Dates History of Present Illness Includes: History of Present Illness from this encounter HPI Susie Che is a 67 year old female. - Allergy list reviewed - Problem list reviewed - Medication list reviewed - Patient pain level from 1-10: 10 Pain is better with standing. Pain is worse with laying down - Yes, previous treatment. Medications used for this condition: Social History Description Last Updated Tobacco non-user 08/06/2023 Last Documented On 4 11:08AM ; [facility] No recent change in diet 11/21/2021 Last Documented On 4 10:24AM ; [facility] Not a current smoker. 11/21/2021 Last Documented On 4 10:24AM ; [facility] Not using drugs 11/21/2021 Last Documented On 4 10:24AM ; [facility] Not a smoker 11/21/2021 Last Documented On 4 10:24AM ; [facility] Non-smoker 11/08/2020 Last Documented On 4 10:24AM ; [facility] Caffeine use 11/08/2020 Last Documented On 4 10:24AM ; [facility] Exercising regularly 11/08/2020 Last Documented On 4 10:24AM ; [facility] Not a current smoker. 11/08/2020 Last Documented On 4 10:24AM ; [facility] Recent change in diet 11/08/2020 Last Documented On 4 10:24AM ; [facility] No tobacco use 06/25/2017 Last Documented On 4 10:24AM ; [facility] Smoking status : Never smoker 06/25/2017 Last Documented On 4 10:24AM ; [facility] Not a current smoker 06/25/2017 Last Documented On 4 10:24AM ; [facility] Not using alcohol 06/25/2017 Last Documented On 4 10:24AM ; [facility] Procedures and Surgical History Includes: Procedures from this encounter Procedures Code Diagnosis Performing Provider Service Location Service Date X-RAY EXAM OF SHOULDER 2-3 VIEWS (LEFT) 07423 Complete rotatr-cuff tear/ruptr of left shoulder, not trauma, Primary osteoarthritis, left shoulder Yanira Nolen PA-C [facility] B 08/06/2023 Last Documented On 4 1:13PM ; [facility] use of tobacco assessment performed 1000F Last Documented On 4 10:25AM ; [facility] patient screened for future fall risk: documentation of any fall with injury in past year 1100F Last Documented On 4 10:25AM ; [facility] review of medications documented 1160F Last Documented On 4 10:25AM ; [facility] Surgical History Last Updated History of hysterectomy 06/25/2017 Last Documented On 4 10:24AM ; [facility] Medical History Includes: Medical History addressed during this encounter Description Last Updated History of Sleep Apnea 08/06/2023 Last Documented On 4 11:08AM ; [facility] History of asthma 11/21/2021 Last Documented On 4 10:24AM ; [facility] History of Hypertension 11/21/2021 Last Documented On 4 10:24AM ; [facility] History of Gallbladder 11/08/2020 Last Documented On 4 10:24AM ; [facility] Hypertension 11/08/2020 Last Documented On 4 10:24AM ; [facility] Hysterectomy 11/08/2020 Last Documented On 4 10:24AM ; [facility] No recent immunization for flu Last Documented On 4 10:24AM ; [facility] No recent immunization for pneumococcal pneumonia 11/08/2020 Last Documented On 4 10:24AM ; [facility], [facility] Sleep Apnea 11/08/2020 Last Documented On 4 10:24AM ; [facility], [facility] Total hip replacement 11/08/2020 Last Documented On 4 10:24AM ; [facility], [facility] History of heart disease 06/25/2017 Last Documented On 4 10:24AM ; [facility], [facility] Family History Includes: Family History addressed during this encounter Description Last Updated Diabetes mellitus 11/08/2020 Last Documented On 4 10:24AM ; [facility], [facility] Family history of cancer 11/08/2020 Last Documented On 4 10:24AM ; [facility], [facility] Family history of heart disease 11/09/19 21 Last Documented On 4 10:24AM ; [facility], [facility] Family history of hypertension Last Documented On 4 10:24AM ; [facility], [facility] Stroke / Seizures 11/08/2020 Last Documented On 4 10:24AM ; [facility], [facility] Sororal history of diabetes mellitus 11/2017 Last Documented On 4 10:24AM ; [facility], [facility] Fraternal history of family history of h eart disease 06/25/2017 Last Documented On 4 10:24AM ; [facility], [facility] Maternal history of diabetes mellitus Last Documented On 4 10:24AM ; [facility], [facility] Review of Systems Includes: Review of Systems from this encounter Systemic: Not feeling tired, no recent weight loss, and no recent weight gain. Head: No headache and no sinus pain. Eyes: No vision problems, no Cataracts, no Glasses/Contacts, and no Glaucoma. Otolaryngeal: No hearing loss and no tinnitus. Cardiovascular: No chest pain or discomfort and no palpitations. Hypertension. No High Cholesterol. Pulmonary: Daytime asthma symptoms. No chronic cough. No wheezing. Gastrointestinal: No heartburn and no abdominal pain. No Indigestion, no Acid Reflux, no Peptic Ulcer, no GI Stomach Bleed, and no Ulcers. Endocrine: No hot flashes, no muscle weakness, no Diabetes, no Hypothyroid, and no Hyperthyroid. Hematologic: No easy bleeding, no tendency for easy bruising, and no Anemia. Musculoskeletal: No Arthritis and no lower back pain. No soft tissue swelling and no localized joint pain. Neurological: No dizziness, no convulsions, and no numbness. Psychological: No anxiety, no emotional lability, no depression, and no insomnia. Not crying for no reason. Skin: No dry skin. No Ulcers, no Scars, and no rash. Allergic and Immunologic: Complaint of seasonal allergic reaction. Mental Status Includes: Mental Status from this encounter Description No anxiety Functional Status Includes: Functional Status from this encounter No Functional Status Recorded Physical Exam Includes: Physical Exam from this encounter Allergies Includes: Active Allergies No Known Allergies Encounters Encounter Provider Location Date Check-In Time Check-Out Time Diagnosis Physician Specified Yanira Nolen PA-C [facility] B 08/06/19 24 10:12AM 10:48AM Overweight Insurance Includes: Active Insurance Policies Plan Name Member ID Group # Subscriber Relationship Effect [facility] Dates [id number] Susie Che Self 04/20/2017 - Unknown Clinical Notes Includes: Clinical Notes from this encounter * Progress note Date Encounter Last Documented by 08/06/2023 Physician Specified Last paulette marjorie on 08/06/2023; 11:08 AM, Yanira Nolen PA-C; [facility], [facility] Active Problems & Conditions - Joint Pain, Localized in the Hip - Joint Pain, Localized in the Left Shoulder Chief Complaint The Chief Complaint is: Left shoulder pain. Referred Here Referred by. History of Present Illness Susie Che is a 67 year old female. - Allergy list reviewed - Problem list reviewed - Medication list reviewed - Patient pain level from 1-10: 10 Pain is better with standing. Pain is worse with laying down - Yes, previous treatment. Medications used for this condition: Current Medication - Advair Diskus 500-50 MCG/ACT [...] disease Sororal: Diabetes mellitus Review Of Systems Systemic: Not feeling tired, no recent weight loss, and no recent weight gain. Head: No headache and no sinus pain. Eyes: No vision problems, no Cataracts, no Glasses/Contacts, and no Glaucoma. Otolaryngeal: No hearing loss and no tinnitus. Cardiovascular: No chest pain or discomfort and no palpitations. Hypertension. No High Cholesterol. Pulmonary: Daytime asthma symptoms. No chronic cough. No wheezing. Gastrointestinal: No heartburn and no abdominal pain. No Indigestion, no Acid Reflux, no Peptic Ulcer, no GI Stomach Bleed, and no Ulcers. Endocrine: No hot flashes, no muscle weakness, no Diabetes, no Hypothyroid, and no Hyperthyroid. Hematologic: No easy bleeding, no tendency for easy bruising, and no Anemia. Musculoskeletal: No Arthritis and no lower back pain. No soft tissue swelling and no localized joint pain. Neurological: No dizziness, no convulsions, and no numbness. Psychological: No anxiety, no emotional lability, no depression, and no insomnia. Not crying for no reason. Skin: No dry skin. No Ulcers, no Scars, and no rash. Allergic and Immunologic: Complaint of seasonal allergic reaction. Physical Findings - Vitals taken 08/06/2023 10:24 am hdv Height 72 in Weight 232 lbs Body Mass Index 31.5 kg/m2 Body Surface Area 2.3 m2 General Exam: The patient is awake and alert. No acute distress. Normal mood and affect for age. Well groomed and nourished Neuro: Sensation was intact to light touch over the extremity. Vascular: +2 radial pulses. No edema. Derm: No signs of active infection. No acute skin changes. Musculoskeletal: Normal gait and station. No muscle atrophy. No joint effusion. No muscle or bony deformity. Patient has pain with active forward flexion. Full passive motion. There is pain and weakness with supraspinatus testing. Positive empty and full can test. Positive abdominal compression Tests X-rays three-view of the left shoulder shows the joint to be located but she does have a large humeral head spur inferiorly Assessment - Overweight Left cuff tear in the setting of arthritis Counseling/Education - Lose weight Plan Fall Risk Assessment: This patient has been [...] therapy has been discussed with the patient. She has had some chronic changes obviously. She does have arthritis but she has had a recent injury in a fall which I think has resulted in a rotator cuff tear I have recommended we get an MRI to further evaluate that to see what her options are surgically. She will see our surgeon when she returns Notes This dictation was done with voice recognition software and may contain errors and omissions. Practice Management Use of tobacco assessment performed and patient screened for future fall risk documentation of any fall with injury in past year Review of medications documented. Care Team - Nelson Sidhu
--- OUTSIDE RECORDS SUMMARY | 2023-10-12 12:37 | XMS_ITS ---
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
--- OUTSIDE RECORDS SUMMARY | 2023-10-12 12:37 | XMS_ITS | Clinical Summary ---
Author Name Unknown Address [address] [place] [address] Phone Organization [facility] , [facility] Address [address] [place] [address] Phone Care Team Providers Care Peanut Separator Name Role Phone Abdi PRIETO, Micah Moralez Unavailable + [phone] NELSON GUERRERO MD Primary Care Provider [phone] Nelson Sidhu Unavailable Unavailable Reason for Visit and Chief Complaint MRI Problems Includes: Problems addressed during this encounter and other active Problems All Visits Onset Date Resolved Date Provider Condition S tatus Joint Pain, Localized in the Right Wrist 09/30/2023 Thomas Messina MD Active Last Documented On 4 8:26AM ; [facility], [facility] Joint Pain, Localized in the Left Shoulder 08/06/2023 Yanira Nolen PA-C Active Last Documented On 4 10:24AM ; [facility], [facility] Joint Pain, Localized in the Hip 06/25/2017 Chr korin Patton MD Active Last Documented On 8 3:19PM ; [facility], [facility] Plan of Treatment Future Appointments Date Time Location Provi [facility] Outpa tient Surgery Suites 10/27/2023 11:30AM Surgery Thmoas crawford MD Last Documented On 4 12:24PM ; [facility], [facility] Follow Up 11/04/2023 9:45AM [facility] Nils Adams MD Last Documented On 4 3:25PM ; [facility] Post Op 11/09/2023 9:00AM [facility] PS Tresa Messina MD Last Documented On 4 3:28PM ; [facility] Assessments Includes: Assessments from this encounter No Assessments Recorded Medical Equipment - Implanted Devices Includes: Current Devices No Medical Equipment Recorded Medications Includes: Medications discussed during this encounter and other current Medications Current Medications (continue as prescribed) Lisinopril 20 MG Oral Tablet 07/20/2023 Provider: UMER MADISON MD Diagnosis: Last Documented On 4 10:24AM By Yvette Bedoya ; [facility] Lisinopril 20 MG Oral Tablet 10/25/2022 Provider: UMER MADISON MD Diagnosis: Last Documented On 3 8:32AM By Haresh Fontenot ; [facility] predniSONE 10 MG Oral Tablet 05/28/2022 Provider: Diagnosis: Last Documented On 3 8:32AM By Haresh Fontenot ; [facility] Advair Diskus 500-50 MCG/ACT Inhalation Aerosol Powder Breath Activated 05/26/2022 Provider: Diagnosis: Last Documented On 3 8:32AM By Haresh Fontenot ; [facility] Albuterol Sulfate HFA 108 (9 0 Base) MCG/ACT Inhalation Aerosol Solution 10/29/2021 Provider: Bella Luna on Vessel Scrapper Helper Diagnosis: Last Documented On 2 10:09AM By Briana Aguilar ; [facility] Medications Administered Includes: Administered Medications from this encounter No Administered Medications Recorded Results Includes: Results discussed during this encounter No Results Recorded For Specified Dates History of Present Illness Includes: History of Present Illness from this encounter No History of Present Illness Recorded Social History No Social History Recorded - Smoking Status Unknown Procedures and Surgical History Includes: Procedures from this encounter Procedures Code Diagnosis Performing Provider Service Location Service Date MRI JOINT UPR EXTREM W/O DYE (LEFT) 07795 Pain in left shoulder uTng Adams MD [facility] [place] 08/13/2023 Last Documented On 4 9:45AM ; [facility] Medical History Includes: Medical History addressed during this encounter No Medical History Recorded Family History Includes: Family History addressed during this encounter No Family History Recorded Review of Systems Includes: Review of Systems from this encounter No Review of Systems Recorded Mental Status Includes: Mental Status from this encounter No Mental Status Recorded Functional Status Includes: Functional Status from this encounter No Functional Status Recorded Physical Exam Includes: Physical Exam from this encounter No Physical Exam Recorded Allergies Includes: Active Allergies No Known Allergies Encounters Encounter Provider Location Date Check-In Time Check-Out Time Diagnosis MRI [facility] 08/13/2023 3:36PM 4:24PM Insurance Includes: Active Insurance Policies Plan Name Member ID Group # Subscriber Relationship Effect mary Dates 1 - [facility] [id number] Susie Che Self 04/20/2017 - Unknown Clinical Notes Includes: Clinical Notes from this encounter No Clinical Notes Recorded
--- OUTSIDE RECORDS SUMMARY | 2023-10-12 12:37 | XMS_ITS ---
Author Name Unknown Address [address] [place] [address] Phone Organization [facility] Address [address] [place] [address] Phone Care Team Providers Care Vessel Captain Name Role Phone Abdi PRIETO, Micah Moralez Unavailable + [phone] NELSON GUERRERO MD Primary Care Provider [phone] Nelson Sidhu Unavailable Unavailable Reason for Referral Date Encounter Description Provider Reason for Referral 11/21/21 Post Op Danny Rebollar PA-C Refer ral To Physician - see pcp for bp ; Referral To Physician 10/16/21 Post Op Danny Rebollar PA-C Refer ral To Physician - see pcp for bp ; Referral To Physician 01/03/21 Follow Up Micah booker MD Referral To Physician - see pcp for bp 11/08/20 NEW PROBLEM/EST PT Micah Patton MD Referral To Physician - see pcp for bp Problems Includes: Active, inactive, and resolved Problems All Visits Onset Date Resolved Date Provider Condition S tatus Joint Pain, Localized in the Right Wrist 09/30/2023 Thomas Messina MD Active Last Documented On 4 8:26AM ; [facility] Joint Pain, Localized in the Left Shoulder 08/06/2023 Yanira Nolen PA-C Active Last Documented On 4 10:24AM ; [facility] Joint Pain, Localized in the Hip 06/25/2017 [facility] korin Patton MD Active Last Documented On 8 3:19PM ; [facility] Plan of Treatment Findings Encounter Date Patient screened for future fall risk: documentation of any fall with injury in past year Physician Specified with Thomas Messina MD 09/30/2023 Last Documented On 4 10:22PM ; [facility] Patient screened for future fall risk: documentation of any fall with injury in past year Follow Up with Tung Adams MD 09/16/2023 Last Documented On 4 6:30PM ; [facility] Future Appointments Date Time Location [facility] Surgery Suites 10/27/2023 11:30AM Surgery Thomas crawford MD Last Documented On 4 12:24PM ; [facility] Follow Up 11/04/2023 9:45AM [facility] B Tung Adams MD Last Documented On 4 3:25PM ; [facility] Post Op 11/09/2023 9:00AM [facility] Thomas Messina MD Last Documented On 4 3:28PM ; [facility] Instructions to patient Lose weight Last Documented On 4 2:38PM ; [facility] Lose weight Last Documented On 4 10:25AM ; [facility] Lose weight Last Documented On 3 8:31AM ; [facility] Instructions for patient to see pcp for bp Last Documented On 2 9:55AM ; [facility] Lose weight Last Documented On 2 9:55AM ; [facility] Instructions for patient to see pcp for bp Last Documented On 2 1:38PM ; [facility] Lose weight Last Documented On 2 1:56PM ; [facility] Instructions for patient to see pcp for bp Last Documented On 1 3:21PM ; [facility] Instructions for patient to see pcp for bp Last Documented On 1 10:02AM ; [facility] Instructions for patient to see pcp for bp Last Documented On 8 9:05AM ; [facility] Instructions for patient to see pcp for bp Last Documented On 8 9:33AM ; [facility] Instructions for patient to see pcp for bp Last Documented On 8 3:37PM ; [facility] Assessments Includes: Assessments for all patient encounters Findings Encounter Date Overweight Follow Up with Tung zaldivar MD 09/16/2023 Last Documented On 4 6:30PM ; [facility] Overweight Physician Specified with Yanira Nolen PA-C 08/06/2023 Last Documented On 4 11:08AM ; [facility] Instructions Includes: Instructions for all patient encounters Instructions to patient Lose weight Last Documented On 4 2:38PM ; [facility] Lose weight Last Documented On 4 10:25AM ; [facility] Lose weight Last Documented On 3 8:31AM ; [facility] Instructions for patient to see pcp for bp Last Documented On 2 9:55AM ; [facility] Lose weight Last Documented On 2 9:55AM ; [facility] Instructions for patient to see pcp for bp Last Documented On 2 1:38PM ; [facility] Lose weight Last Documented On 2 1:56PM ; [facility] Instructions for patient to see pcp for bp Last Documented On 1 3:21PM ; [facility] Instructions for patient to see pcp for bp Last Documented On 1 10:02AM ; [facility] Instructions for patient to see pcp for bp Last Documented On 8 9:05AM ; [facility] Instructions for patient to see pcp for bp Last Documented On 8 9:33AM ; [facility] Instructions for patient to see pcp for bp Last Documented On 8 3:37PM ; [facility] Medical Equipment - Implanted Devices Includes: Current and historical Devices No Medical Equipment Recorded Medications Includes: Current and historical Medications Current Medications (continue as prescribed) Lisinopril 20 MG Oral Tablet 07/20/2023 Provider: UMER MADISON MD Diagnosis: Last Documented On 4 10:24AM By Yvette Bedoya ; [facility] Lisinopril 20 MG Oral Tablet 10/25/2022 Provider: UMER MADISON MD Diagnosis: Last Documented On 3 8:32AM By Haresh Fontenot ; [facility] predniSONE 10 MG Oral Tablet 05/28/2022 Provider: Diagnosis: Last Documented On 3 8:32AM By Haresh Fontenot ; [facility] Advair Diskus 500-50 MCG/ACT Inhalation Aerosol Powder Breath Activated 05/26/2022 Provider: Diagnosis: Last Documented On 3 8:32AM By Haresh Fontenot ; [facility] Albuterol Sulfate HFA 108 (9 0 Base) MCG/ACT Inhalation Aerosol Solution 10/29/2021 Provider: Bella Luna on Customer Service Supervisor Diagnosis: Last Documented On 2 10:09AM By Briana Aguilar ; [facility] Past Medications on file Lisinopril 20 MG Oral Tablet 11/19/2021 - 12/19/2021 Anoop juarez: Diagnosis: Last Documented On 2 3:15PM By Анна Davila ; [facility] Chlorthalidone 25 MG Oral Tablet 11/18/2021 - 11/22/19 Provider: UMER MADISON MD Diagnosis: Last Documented On 2 10:00AM By Briana Aguilar ; [facility] traMADol HCl 50 MG Oral Tablet 10/18/2021 - 10/23/2021 Provider: Micah booker MD Diagnosis: 1-2 po q 4-6h Last Documented On 2 10:48AM By Beto Patton ; [facility] cloNIDine HCl 0.1 MG Oral Tablet 09/26/2021 - 11/21/2021 Provider: Cassy carrero [employer] Diagnosis: Last Documented On 2 10:00AM By Briana Aguilar ; [facility] Ondansetron HCl 4 MG Oral Tablet 09/26/2021 - 10/01/2021 Provider: Micah Patton MD Diagnosis: 2byi1-3p Last Documented On 2 10:59AM By Bindu Villaseñor ; [facility] Acetaminophen 500 MG Oral Tablet 09/24/2021 - 10/24/2021 Provider: Micah Patton MD Diagnosis: 2 three times a day DNF UNTIL 09-25-21 Last Documented On 2 11:28AM By Beto Patton ; [facility] Ondansetron HCl 4 MG Oral Tablet 09/24/2021 - 09/26/2021 Provider: Micah Patton MD Diagnosis: 1xzx8-5g DNF UNTIL 09-25-21 Last Documented On 2 10:46AM By Bindu Villaseñor ; [facility] oxyCODONE HCl 5 MG Oral Tablet 09/24/2021 - 09/29/2021 Provider: Micah booker MD Diagnosis: 1-2 po q 4-6h DNF UNTIL 09-25-21 Last Documented On 2 11:28AM By Beto Patton ; [facility] traMADol HCl 50 MG Oral Tablet 09/24/2021 - 09/29/2021 Provider: Micah booker MD Diagnosis: 1-2 po q 4-6h DNF UNTIL 09-25-21 Last Documented On 2 11:28AM By Beto Patton ; [facility] Aspirin 81 MG Oral Tablet Delayed Release 09/24/2021 - 11/19/2021 Provider: Micah Patton MD Diagnosis: twice a day Last Documented On 2 3:15PM By Анна Davila ; [facility] Meloxicam 15 MG Oral Tablet 09/24/2021 - 10/24/2021 Provider: Micah booker MD Diagnosis: once a day DNF UNTIL 09-25-21 Last Documented On 2 11:28AM By Beto Patton ; [facility] Cefadroxil 500 MG Oral Capsule 09/24/2021 - 09/27/2021 Provider: Micah booker MD Diagnosis: twice a day DNF UNTIL 09-25-21 Last Documented On 2 11:28AM By Beto Patton ; [facility] Colace 100 MG Oral Capsule 09/24/2021 - 11/21/2021 Provider: Micah booker MD Diagnosis: 1-2 tabs daily DNF UNTIL 09-25-21 Last Documented On 2 10:00AM By Briana Aguilar ; [facility] Lidocaine 5% External Patch 01/03/2021 - 03/04/2021 Provider: Micah booker MD Diagnosis: once a day Last Documented On 1 3:45PM By Beto Patton ; [facility] Aspirin 325 MG Oral Tablet 11/08/2020 - 11/19/2021 Pro vider: Diagnosis: Last Documented On 2 3:15PM By Анна Davila ; [facility] methylPREDNISolone 4 MG Oral Tablet Therapy Pack 09/02/2020 - 11/19/2021 Provider: Diagnosis: Last Documented On 2 3:14PM By Анна Davila ; [facility] Mupirocin 2% External Ointment 09/01/2017 - 09/06/2017 Provider: Micah booker MD Diagnosis: Apply to nostrils 3 time a d ay 5 days prior to surgery. Last Documented On 8 2:23PM By Katiana Awad ; [facility] TraMADol HCl 50MG Oral Tablet 08/28/2017 - 09/12/2017 Provider: Micah booker MD Diagnosis: Take 1-2 tablet every 8 hrs prn pain Last Documented On 8 3:39PM By Katiana Awad ; [facility] Celecoxib 50MG Oral Capsule 06/25/2017 - 07/25/2017 Provider: Micah booker MD Diagnosis: 2 once a day with food and plenty of water Last Documented On 8 4:54PM By Danny Rebollar ; [facility] Tylenol 500mg Oral Tablet 06/25/2017 - 11/19/2021 Prov ider: Diagnosis: Last Documented On 2 3:14PM By Анна Davila ; [facility] Ibuprofen 800MG Oral Tablet 02/03/2017 - 11/19/2021 Pr ovider: Willy Haas MD Diagnosis: Last Documented On 2 3:15PM By Анна Davila ; [facility] Lisinopril 20MG Oral Tablet 09/26/2016 - 11/19/2021 Pr ovider: Diagnosis: Last Documented On 2 3:15PM By Анна Davila ; [facility] Medications Administered Includes: Administered Medications in patient's chart No Administered Medications Recorded Vital Signs Includes: Vital Signs from 10/11/2022 through 10/12/2023 Vital Name 09/30/2023 08:27A 09/16/2023 02:39P 08/06/2023 10:24A 11/17/2022 08:31A Height (in) 72 72 72 72 Weight (lb) 232 232 232 Body Mass Index 31.5 31.5 31.5 Body Surface Area 2.3 2.3 2.3 Note: jl hdv hdv dp Last Documented: On 09/30/2023 8:27AM ; [facility] On 09/16/2023 2:39PM ; [facility] On 08/06/2023 10:25AM ; [facility] On 11/17/2022 8:31AM ; [facility] Results Includes: Results from 10/11/2022 through 10/12/2023 No Results Recorded For Specified Dates History of Present Illness History of Present Illness not supported for this document type No History of Present Illness Recorded Social History Description Last Updated Tobacco non-user 08/06/2023 Last Documented On 4 11:08AM ; [facility] No recent change in diet 11/21/2021 Last Documented On 2 10:21AM ; [facility] Not a current smoker. 11/21/2021 Last Documented On 2 10:21AM ; [facility] Not using drugs 11/21/2021 Last Documented On 2 10:21AM ; [facility] Not a smoker 11/21/2021 Last Documented On 2 10:21AM ; [facility] Non-smoker 11/08/2020 Last Documented On 1 10:58AM ; [facility] Caffeine use 11/08/2020 Last Documented On 1 10:58AM ; [facility] Exercising regularly 11/08/2020 Last Documented On 1 10:58AM ; [facility] Not a current smoker. 11/08/2020 Last Documented On 1 10:58AM ; [facility] Recent change in diet 11/08/2020 Last Documented On 1 10:58AM ; [facility] No tobacco use 06/25/2017 Last Documented On 8 4:59PM ; [facility] Smoking status : Never smoker 06/25/2017 Last Documented On 8 4:59PM ; [facility] Not a current smoker 06/25/2017 Last Documented On 8 4:59PM ; [facility] Not using alcohol 06/25/2017 Last Documented On 8 4:59PM ; [facility] Procedures and Surgical History Includes: Procedures from 10/11/2022 through 10/12/2023 Procedures Code Diagnosis Performing Provider Service Location Service Date X-RAY EXAM OF WRIST 2 VIEWS (RIGHT) 85178 Ganglion, right wrist Thomas Messina MD [facility] 09/30/2023 Last Documented On 4 7:09AM ; [facility] Triamcinolone/Kenalog, 10mg per cc [id number] Primary osteoarthritis, left shoulder Tung Adams MD [facility] 09/16/2023 Last Documented On 4 9:59AM ; [facility] DRAIN/INJECT, JOINT/BURSA (LEFT) Primary osteoarthritis, left shoulder Tung Adams MD [facility] 09/16/2023 Last Documented On 4 9:59AM ; [facility] MRI JOINT UPR EXTREM W/O DYE (LEFT) 49573 Pain in left shoulder Tung Adams MD [facility] 08/13/2023 Last Documented On 4 9:45AM ; [facility] X-RAY EXAM OF SHOULDER 2-3 VIEWS (LEFT) 89279 Complete rotatr-cuff tear/ruptr of left shoulder, not trauma, Primary osteoarthritis, left shoulder Yanira Nolen PA-C [facility] 08/06/2023 Last Documented On 4 1:13PM ; [facility] X-RAY EXAM OF KNEE 3 VIEWS (LEFT) [id number] Pain in left knee, Presence of left artificial knee joint Danny Rebollar PA-C [facility] 11/17/2022 Last Documented On 3 3:52PM ; [facility] Surgical History Last Updated History of hysterectomy 06/25/2017 Last Documented On 8 4:59PM ; [facility] Medical History Includes: Medical History in patient's chart Description Last Updated History of Sleep Apnea 08/06/2023 Last Documented On 4 11:08AM ; [facility] History of asthma 11/21/2021 Last Documented On 2 10:21AM ; [facility] History of Hypertension 11/21/2021 Last Documented On 2 10:21AM ; [facility] History of Gallbladder 11/08/2020 Last Documented On 1 10:58AM ; [facility] Hypertension 11/08/2020 Last Documented On 1 10:58AM ; [facility] Hysterectomy 11/08/2020 Last Documented On 1 10:58AM ; [facility] No recent immunization for flu 1 Last Documented On 1 10:58AM ; [facility] No recent immunization for pneumococcal pneumonia 11/08/2020 Last Documented On 1 10:58AM ; [facility] Sleep Apnea 11/08/2020 Last Documented On 1 10:58AM ; [facility] Total hip replacement 11/08/2020 Last Documented On 1 10:58AM ; [facility] History of heart disease 06/25/2017 Last Documented On 8 4:59PM ; [facility] Family History Includes: Family History in patient's chart Description Last Updated Diabetes mellitus 11/08/2020 Last Documented On 1 10:58AM ; [facility] Family history of cancer 11/08/2020 Last Documented On 1 10:58AM ; [facility] Family history of heart disease 11/09/19 21 Last Documented On 1 10:58AM ; [facility] Family history of hypertension 1 Last Documented On 1 10:58AM ; [facility] Stroke / Seizures 11/08/2020 Last Documented On 1 10:58AM ; [facility] Sororal history of diabetes mellitus 11/2017 Last Documented On 8 4:59PM ; [facility] Fraternal history of family history of h eart disease 06/25/2017 Last Documented On 8 4:59PM ; [facility] Maternal history of diabetes mellitus Last Documented On 8 4:59PM ; [facility] Review of Systems Review of Systems not supported for this document type No Review of Systems Recorded Mental Status No Mental Status Recorded Functional Status No Functional Status Recorded Physical Exam Physical Exam not supported for this document type No Physical Exam Recorded Allergies Includes: Active, inactive, and resolved Allergies No Known Allergies Encounters Includes: Encounters from 10/11/2022 through 10/12/2023 Encounter Provider Location Date Check-In Time Check-Out Time Diagnosis Physician Specified Thomas Messina MD [facility] 09/30/19 24 8:14AM 9:00AM Follow Up Tung Adams MD [facility] 09/16/19 24 1:49PM 2:54PM Overweight MRI [facility] 08/13/19 24 3:36PM 4:24PM Physician Specified Yanira Nolen PA-C [facility] 08/06/19 24 10:12AM 10:48AM Overweight Follow Up Danny Rebollar PA-C [facility] 11/18/19 23 8:10AM 9:13AM Insurance Includes: Active Insurance Policies Plan Name Member ID Group # Subscriber Relationship Effect mary Dates 1 - [facility] [id number] Susie Che Self 04/20/2017 - Unknown Clinical Notes Includes: Signed Clinical Notes starting from 04/03/2022 * Progress note Date Encounter Last Documented by 09/30/2023 Physician Specified Last jessicaumen marjorie on 10/05/2023; 10:22 PM, Thomas Messina MD; [facility] Active Problems & Conditions - Joint [...] software and may contain errors and omissions. * Progress note Date Encounter Last Documented by 09/16/2023 Follow Up Last documented on 10/08/2023; 6:30 PM, Tung Adams MD; [facility] Active Problems & Conditions - Joint Pain, Localized in the Hip - Joint Pain, Localized in the Left Shoulder - Joint Pain, Localized in the Right Wrist Chief Complaint The Chief Complaint is: Left shoulder pain. Referred Here Referred by. History of Present Illness Susie Che is a 67 year old female. - Allergy list reviewed - Problem list reviewed - Medication list reviewed - Patient pain level from 1-10: 10 Pain is better with standing. Pain is worse with laying down - Yes, previous treatment. - - Review of medications documented Medications used for this condition: Patient is here for her bilateral shoulders. She is having yvep-[id number]-[id number]-right shoulder pain. She is here for left shoulder MRI follow-up Current Medication - Advair Diskus 500-50 MCG/ACT [...] not for pneumococcal pneumonia. Diagnoses: Heart disease. Asthma Sleep Apnea Hypertension Surgical: - Hysterectomy - History of Gallbladder - [...] - No Known Allergies Family History Cancer Stroke / Seizures Systemic hypertension Maternal: Diabetes mellitus Fraternal: Heart [...] and no abdominal pain. No Indigestion, no Peptic Ulcer, no GI Stomach Bleed, no Ulcers, and no Acid Reflux. Endocrine: No hot flashes, no muscle weakness, [...] allergic reaction. Physical Findings - Vitals taken 09/16/2023 02:39 pm hdv Height 72 in Weight 232 lbs Body Mass Index 31.5 kg/m2 Body Surface Area 2.3 m2 Alert and oriented x 3, Skin intact, No gross deformity, no atrophy of rotator cuff musculature, Sensation intact to light touch through upper extremity. Range of motion limited to all planes of motion. Crepitus present with range of motion. Fingers warm well perfused. Impingement testing negative. Rotator cuff strength testing within normal limits. Biceps testing equivocal. Tests MRI demonstrates moderate to severe glenohumeral arthritis with darling labral tearing consistent with glenohumeral arthritis, low-grade partial-thickness supraspinatus tear and moderate AC joint arthropathy Assessment - Overweight Left shoulder glenohumeral arthritis in a 67-year-old moderately active individual Counseling/Education - Tobacco non-user - Use of tobacco assessment performed - Lose weight Plan StartCited - Overweight Therapy/Physical Therapy: Cervical Instructions: See PT order attached EndCited - Patient screened for future fall risk: [...] therapy has been discussed with the patient. We are going to inject her left shoulder. She is going to do a home-based exercise program. We are going to see her back as scheduled Procedure note: Left shoulder: The risk and benefits of the injection were outlined to the patient. They understand these and wished to proceed. The anterior portion of the shoulder over the glenohumeral joint was prepped with alcohol and Betadine. Using a 27-gauge needle and 5 cc syringe I pierced the skin breaching the anterior joint capsule. I then aspirated to confirm no presence of a vascular bed I then injected a solution of 40 mg Kenalog / 2 cc of lidocaine/2 cc of Marcaine into the joint. The patient tolerated this procedure well. Notes This dictation was done with voice recognition software and may contain errors and omissions. Practice Management Use of tobacco assessment performed Review of medications documented. Care Team - Nelson Sidhu * Progress note Date Encounter Last Documented by 08/06/2023 Physician Specified Last documen marjorie on 08/06/2023; 11:08 AM, Yanira Nolen PA-C; [facility] Active Problems & Conditions - Joint [...] medications documented. Care Team - Nelson Sidhu * Progress note Date Encounter Last Documented by 11/17/2022 Follow Up Last documented on 07/22/2023; 8:41 AM, Danny Rebollar PA-C; [facility] Active Problems & Conditions - Joint Pain, Localized in the Hip Chief Complaint The Chief Complaint is: Left knee pain. Referred Here Referred by pcp. History of Present Illness Susie Che is a 66 year old female. - Allergy list reviewed - Problem list reviewed - Medication list reviewed Current Medication - Advair Diskus 500-50 MCG/ACT Inhalation Aerosol Powder Breath Activated 30 days, 0 refills - Albuterol Sulfate HFA 108 (90 Base) MCG/ACT Inhalation Aerosol Solution 16 days, 0 refills - Lisinopril 20 MG Oral Tablet 30 days, 0 refills - predniSONE 10 MG Oral Tablet 5 days, 0 refills Past Medical/Surgical History Reported: Immunization History: No recent immunization for flu and not for pneumococcal pneumonia. Diagnoses: Heart disease. Asthma. Sleep Apnea Hypertension. Hypertension Surgical: - Hysterectomy - Hysterectomy - History of Gallbladder - Total hip replacement Social History Not a current smoker. Not a current smoker. Current diet: Recent change in diet. No recent change in diet. Caffeine use: Caffeine use. Tobacco use: No tobacco use, not a current smoker, and not a smoker. Non-smoker. Smoking status: Never smoker. Alcohol: Not using alcohol. Drug Use: Not using drugs. Habits: Exercising regularly. Allergies - No Known Allergies Family History Cancer Heart disease Stroke / Seizures Diabetes mellitus Systemic hypertension Maternal: Diabetes mellitus Fraternal: Heart disease Sororal: Diabetes mellitus Review Of Systems Systemic: Not feeling tired, no recent weight loss, and no recent weight gain. No edema. Head: No headache and no sinus pain. Eyes: No vision problems and no glaucomatous visual field defect. No Cataracts, no Glasses/Contacts, and no Glaucoma. Otolaryngeal: No hearing loss and no tinnitus. Cardiovascular: No chest pain or discomfort and no palpitations. Hypertension and High Cholesterol. Pulmonary: Daytime asthma symptoms. No chronic cough. Wheezing. Gastrointestinal: No heartburn and no abdominal pain. No Indigestion, no Acid Reflux, no Peptic Ulcer, no GI Stomach Bleed, and no Ulcers. Endocrine: No hot flashes, no muscle weakness, no Diabetes, no Hypothyroid, and no Hyperthyroid. Hematologic: No easy bleeding. A tendency for easy bruising. No Anemia. Musculoskeletal: No Arthritis and no lower back pain. No soft tissue swelling. Pain localized to one or more joints. Neurological: No dizziness, no convulsions, and no numbness. Psychological: No anxiety, no emotional lability, no depression, and no insomnia. Not crying for no reason. Skin: No dry skin. No Ulcers, no Scars, no rash, and no ulcers. Allergic and Immunologic: No complaint of seasonal allergic reaction. reviewed 11/21/2021 Physical Findings - Vitals taken 11/17/2022 08:31 am dp Height 72 in Standard Measurements: - Patient was overweight. Patient alert and oriented [minimally] overweight Gait Normal Left Hip ROM normal Left Knee Skin around knee clean, dry and intact well-healed surgical incision Left knee range of motion 0- to 125- slight lateral joint line discomfort Strength [5/5] TA, [5/5] Gastroc, [5/5] Quad Palpable pulses DP/PT Tests 3 views of the left knee taken today demonstrates well fixed well-positioned medial compartment UKA. No sign of loosening or prosthetic complications. Well- maintained lateral compartment and patellofemoral joint. Assessment 1 year post op Left UKA Therapy - Pt received screening for fall risk. Counseling/Education - Lose weight Plan Fall Risk [...] therapy has been discussed with the patient. patient fell about 3-4 months ago landing primarily on her left knee and left arm. There still is some tenderness to palpation over the lateral anterior joint line but no pain with ambulation. Mild swelling. Otherwise normal functionality of the left knee. In tact ligament exam. Overall patient is very pleased with her progress. Continue with ad scott. activity and follow up in the office in 3-5 years or as needed Patient may call for referral for left upper extremity left shoulder referral to Dr. Adams Notes This dictation was done with voice recognition software and may contain errors and omissions. Electronically signed by George Rebollar PA-C Practice Management Use of tobacco assessment performed and patient screened for future fall risk. Care Team - Nelson Sidhu
--- OUTSIDE RECORDS SUMMARY | 2023-10-12 12:37 | XMS_ITS | Clinical Summary ---
Author Name Unknown Address [address] [place] [address] Phone Organization [facility] Address [address] [place] [address] Phone Care Team Providers Care Cigar Packer And Sorter Name Role Phone Abdi PRIETO, Micah Moralez Unavailable U NELSON Sepulveda MD Primary Care Provider [phone] Nelson Sidhu Unavailable Unavailable Reason for Visit and Chief Complaint The Chief Complaint is: Left shoulder pain Problems Includes: Problems addressed during this encounter and other active Problems All Visits Onset Date Resolved Date Provider Condition S tatus Joint Pain, Localized in the Right Wrist 09/30/2023 Thomas Messina MD Active Last Documented On 4 8:26AM ; [facility], [facility] Joint Pain, Localized in the Left Shoulder 08/06/2023 Yanira Nolen PA-C Active Last Documented On 4 10:24AM ; [facility], [facility] Joint Pain, Localized in the Hip 06/25/2017 Chr korin Patton MD Active Last Documented On 8 3:19PM ; [facility], [facility] Plan of Treatment - Patient screened for future fall risk: documentation of any fall with injury in past year - Last Documented On 10/08/2023 6:30PM ; [facility], [facility] Fall Risk Assessment: This patient has [...] with the patient. - Last Documented On 10/08/2023 6:30PM ; [facility] We are going to inject her left [...] joint. The patient tolerated this procedure well. - Last Documented On 10/08/2023 6:30PM ; [facility] Pending Tests Order Diagnosis Results Due Ordering P rovider Therapy - Physical Therapy Cervical Overweight 10/06/23 Tung Adams MD Last Documented On 4 6:30PM ; [facility] Future Appointments Date Time Location [facility] Surgery Suites 10/27/2023 11:30AM Surgery Thomas crawford MD Last Documented On 4 12:24PM ; [facility] Follow Up 11/04/2023 9:45AM [facility] Tung Adams MD Last Documented On 4 3:25PM ; [facility] Post [facility] Thomas Messina MD Last Documented On 4 3:28PM ; [facility] Instructions to patient Lose weight Last Documented On 4 2:38PM ; [facility] Assessments Includes: Assessments from this encounter Findings - Overweight - Last Documented On 10/08/2023 6:30PM ; [facility] Left shoulder glenohumeral arthritis in a 67-year-old moderately active individual - Last Documented On 10/08/2023 6:30PM ; [facility] Instructions Includes: Instructions from this encounter Instructions to patient Lose weight Last Documented On 4 2:38PM ; [facility] Medical Equipment - Implanted Devices Includes: Current Devices No Medical Equipment Recorded Medications Includes: Medications discussed during this encounter and other current Medications Current Medications (continue as prescribed) Lisinopril 20 MG Oral Tablet 07/20/2023 Provider: UMER MADISON MD Diagnosis: Last Documented On 4 10:24AM By Yvette Bedoya ; [facility] Lisinopril 20 MG Oral Tablet 10/25/2022 Provider: UMER MDAISON MD Diagnosis: Last Documented On 3 8:32AM By Haresh Fontenot ; [facility] predniSONE 10 MG Oral Tablet 05/28/2022 Provider: Diagnosis: Last Documented On 3 8:32AM By Haresh Fontenot ; [facility] Advair Diskus 500-50 MCG/ACT Inhalation Aerosol Powder Breath Activated 05/26/2022 Provider: Diagnosis: Last Documented On 3 8:32AM By Haresh Fontenot ; [facility] Albuterol Sulfate HFA 108 (9 0 Base) MCG/ACT Inhalation Aerosol Solution 10/29/2021 Provider: Bella Luna on [employer] Professional Diagnosis: Last Documented On 2 10:09AM By Briana Aguilar ; [facility] Past Medications on file Lisinopril 20 MG Oral Tablet 11/19/2021 - 12/19/2021 Anoop juarez: Diagnosis: Last Documented On 2 3:15PM By Анна Davila ; [facility] traMADol HCl 50 MG Oral Tablet 10/18/2021 - 10/23/2021 Provider: Micah booker MD Diagnosis: 1-2 po q 4-6h Last Documented On 2 10:48AM By Beto Patton ; [facility] Ondansetron HCl 4 MG Oral Tablet 09/26/2021 - 10/01/2021 Provider: Micah Patton MD Diagnosis: [id number] Last Documented On 2 10:59AM By Bindu Villaseñor ; [facility] Acetaminophen 500 MG Oral Tablet 09/24/2021 - 10/24/2021 Provider: Micah Patton MD Diagnosis: 2 three times a day DNF UNTIL 09-25-21 Last Documented On 11:28AM By Beto Patton ; [facility] oxyCODONE HCl 5 MG Oral Tablet 09/24/2021 - 09/29/2021 Provider: Micah booker MD Diagnosis: 1-2 po q 4-6h DNF UNTIL 09-25-21 Last Documented On 11:28AM By Beto Patton ; [facility] traMADol HCl 50 MG Oral Tablet 09/24/2021 - 09/29/2021 Provider: Micah booker MD Diagnosis: 1-2 po q 4-6h DNF UNTIL 09-25-21 Last Documented On 11:28AM By Beto Patton ; [facility] Meloxicam 15 MG Oral Tablet 09/24/2021 - 10/24/2021 Provider: Micah booker MD Diagnosis: once a day DNF UNTIL 09-25-21 Last Documented On 11:28AM By Beto Patton ; [facility] Cefadroxil 500 MG Oral Capsule 09/24/2021 - 09/27/2021 Provider: Micah booker MD Diagnosis: twice a day DNF UNTIL 09-25-21 Last Documented On 2 11:28AM By Beto Patton ; [facility] Lidocaine 5% External Patch 01/03/2021 - 03/04/2021 Provider: Micah booker MD Diagnosis: once a day Last Documented On 3:45PM By Beto Patton ; [facility] Mupirocin 2% External Ointment 09/01/2017 - 09/06/2017 Provider: Micah booker MD Diagnosis: Apply to nostrils 3 time a d ay 5 days prior to surgery. Last Documented On 8 2:23PM By Katiana Awad ; [facility] TraMADol HCl 50MG Oral Tablet 08/28/2017 - 09/12/2017 Provider: Micah booker MD Diagnosis: Take 1-2 tablet every 8 hrs prn pain Last Documented On 8 3:39PM By Katiana Awad ; [facility] Celecoxib 50MG Oral Capsule 06/25/2017 - 07/25/2017 Provider: Micah booker MD Diagnosis: 2 once a day with food and plenty of water Last Documented On 8 4:54PM By Danny Rebollar ; [facility] Medications Administered Includes: Administered Medications from this encounter No Administered Medications Recorded Vital Signs Includes: Vital Signs from this encounter Vital Name 09/16/2023 02:39P Height (in) 72 Weight (lb) 232 Body Mass Index 31.5 Body Surface Area 2.3 Note: hdv Last Documented: On 09/16/2023 2:39PM ; [facility] Results Includes: Results discussed during this [...] for her bilateral shoulders. She is having iben-[id number]-[id number]-right shoulder pain. She is here for left shoulder MRI follow-up Social History Description Last Updated Tobacco non-user 08/06/2023 Last Documented On 4 2:38PM ; [facility] No recent change in diet 11/21/2021 Last Documented On 4 2:38PM ; [facility] Not a current smoker. 11/21/2021 Last Documented On 4 2:38PM ; [facility] Not using drugs 11/21/2021 Last Documented On 4 2:38PM ; [facility] Not a smoker 11/21/2021 Last Documented On 4 2:38PM ; [facility] Non-smoker 11/08/2020 Last Documented On 4 2:38PM ; [facility], [facility] Caffeine use 11/08/2020 Last Documented On 4 2:38PM ; [facility], [facility] Exercising regularly 11/08/2020 Last Documented On 4 2:38PM ; [facility], [facility] Not a current smoker. 11/08/2020 Last Documented On 4 2:38PM ; [facility], [facility] Recent change in diet 11/08/2020 Last Documented On 4 2:38PM ; [facility], [facility] No tobacco use 06/25/2017 Last Documented On 4 2:38PM ; [facility], [facility] Smoking status : Never smoker 06/25/2017 Last Documented On 4 2:38PM ; [facility], [facility] Not a current smoker 06/25/2017 Last Documented On 4 2:38PM ; [facility], [facility] Not using alcohol 06/25/2017 Last Documented On 4 2:38PM ; [facility], [facility] Procedures and Surgical History Includes: Procedures from this encounter Procedures Code Diagnosis Performing Provider Service Location Service Date DRAIN/INJECT, JOINT/BURSA (LEFT) Primary osteoarthritis, left shoulder Tung Adams MD [facility] 09/16/2023 Last Documented On 4 9:59AM ; [facility], [facility] Triamcinolone/Kenalog, 10mg per cc [id number] Primary osteoarthritis, left shoulder Tung Adams MD [facility] 09/16/2023 Last Documented On 4 9:59AM ; [facility], [facility] use of tobacco assessment performed 1000F Last Documented On 4 2:38PM ; [facility], [facility] review of medications documented 1160F Last Documented On 4 2:38PM ; [facility], [facility] Medical History Includes: Medical History addressed during this encounter Description Last Updated History of Sleep Apnea 08/06/2023 Last Documented On 4 2:38PM ; [facility], [facility] History of asthma 11/21/2021 Last Documented On 4 2:38PM ; [facility], [facility] History of Hypertension 11/21/2021 Last Documented On 4 2:38PM ; [facility], [facility] History of Gallbladder 11/08/2020 Last Documented On 4 2:38PM ; [facility], [facility] Hysterectomy 11/08/2020 Last Documented On 4 2:38PM ; [facility], [facility] No recent immunization for flu 1 Last Documented On 4 2:38PM ; [facility], [facility] No recent immunization for pneumococcal pneumonia 11/08/2020 Last Documented On 4 2:38PM ; [facility], [facility] Total hip replacement 11/08/2020 Last Documented On 4 2:38PM ; [facility], [facility] History of heart disease 06/25/2017 Last Documented On 4 2:38PM ; [facility], [facility] Family History Includes: Family History addressed during this encounter Description Last Updated Family history of cancer 11/08/2020 Last Documented On 4 2:38PM ; [facility], [facility] Family history of hypertension 1 Last Documented On 4 2:38PM ; [facility], [facility] Stroke / Seizures 11/08/2020 Last Documented On 4 2:38PM ; [facility], [facility] Sororal history of diabetes mellitus 11/2017 Last Documented On 4 2:38PM ; [facility] Fraternal history of family history of h eart disease 06/25/2017 Last Documented On 4 2:38PM ; [facility] Maternal history of diabetes mellitus Last Documented On 4 2:38PM ; [facility], [facility] Review of Systems Includes: Review of [...] Location Date Check-In Time Check-Out Time Diagnosis Follow Up Tung Adams MD [facility] 4 1:49PM 2:54PM Overweight Insurance Includes: Active Insurance Policies Plan Name Member ID Group # Subscriber Relationship Effect mary Dates 1 - [facility] [id number] Susie Che Self 04/20/2017 - Unknown Clinical Notes Includes: Clinical Notes from this encounter * Progress note Date Encounter Last Documented by 09/16/2023 Follow Up Last documented on 10/08/2023; 6:30 PM, Tung Adams MD; [facility], [facility] Active Problems & Conditions - Joint [...] for her bilateral shoulders. She is having vjmh-nzgudys-gkeu-right shoulder pain. She is here for left [...]
--- OUTSIDE RECORDS SUMMARY | 2023-10-12 12:38 | XMS_ITS | Clinical Summary ---
Author Name Unknown Address [address] [place] [address] Phone Organization [facility] Address [address] [place] [address] Phone Care Team Providers Care Professor Of Counseling Name Role Phone Abdi PRIETO, Micah Moralez Unavailable + [phone] NELSON GUERRERO MD Primary Care Provider [phone] Nelson Sidhu Unavailable Unavailable Reason for Visit and Chief Complaint The Chief Complaint is: left knee pain Problems Includes: Problems addressed during this encounter and other active Problems All Visits Onset Date Resolved Date Provider Condition S tatus Joint Pain, Localized in the Right Wrist 09/30/2023 Thomas Messina MD Active Last Documented On 4 8:26AM ; [facility] Joint Pain, Localized in the Left Shoulder 08/06/2023 Yanira Nolen PA-C Active Last Documented On 4 10:24AM ; [facility] Joint Pain, Localized in the Hip 06/25/2017 [facility] korin Patton MD Active Last Documented On 8 3:19PM ; [facility] Plan of Treatment Fall Risk Assessment: This [...] with the patient. - Last Documented On 07/22/2023 8:41AM ; [facility] patient fell about 3-4 months ago landing [...] extremity left shoulder referral to Dr. Adams - Last Documented On 07/22/2023 8:41AM ; [facility] Future Appointments Date Time Location [facility] 10/27/2023 11:30AM Surgery Thomas crawford MD Last Documented On 4 12:24PM ; [facility] Follow Up 11/04/2023 9:45AM [facility] B Tung Adams MD Last Documented On 4 3:25PM ; [facility] Post Op 11/09/2023 9:00AM [facility] Thomas Messina MD Last Documented On 4 3:28PM ; [facility] Instructions to patient Lose weight Last Documented On 3 8:31AM ; [facility] Assessments Includes: Assessments from this encounter Findings 1 year post op Left UKA - Last Documented On 07/22/2023 8:41AM ; [facility] Instructions Includes: Instructions from this encounter Instructions to patient Lose weight Last Documented On 3 8:31AM ; [facility] Medical Equipment - Implanted Devices Includes: Current Devices No Medical Equipment Recorded Medications Includes: Medications discussed during this encounter and other current Medications Current Medications (continue as prescribed) Lisinopril 20 MG Oral Tablet 07/20/2023 Provider: UMER AMDISON MD Diagnosis: Last Documented On 4 10:24AM By Yvette Bedoya ; [facility] Lisinopril 20 MG Oral Tablet 10/25/2022 Provider: UMER MADISON MD Diagnosis: Last Documented On 3 8:32AM By Haresh Fontenot ; [facility] predniSONE 10 MG Oral Tablet 05/28/2022 Provider: Diagnosis: Last Documented On 3 8:32AM By Haresh Fontenot ; [facility] Advair Diskus 500-50 MCG/ACT Inhalation Aerosol Powder Breath Activated 05/26/2022 Provider: Diagnosis: Last Documented On 3 8:32AM By Haresh Fontenot ; [facility] Albuterol Sulfate HFA 108 (9 0 Base) MCG/ACT Inhalation Aerosol Solution 10/29/2021 Provider: Bella Luna on Automotive Technician Instructor Diagnosis: Last Documented On 2 10:09AM By Briana Aguilar ; [facility] Past Medications on file Lisinopril 20 MG Oral Tablet 11/19/2021 - 12/19/2021 Anoop juarez: Diagnosis: Last Documented On 2 3:15PM By Анна Davila ; [facility] traMADol HCl 50 MG Oral Tablet 10/18/2021 - 10/23/2021 Provider: Micah booker MD Diagnosis: 1-2 po q 4-6h Last Documented On 2 10:48AM By Beto Patton ; [facility] Ondansetron HCl 4 MG Oral Tablet 09/26/2021 - 10/01/2021 Provider: Micah Patton MD Diagnosis: [id number] Last Documented On 2 10:59AM By Bindu Villaseñor ; [facility] Acetaminophen 500 MG Oral Tablet 09/24/2021 - 10/24/2021 Provider: Micah Patton MD Diagnosis: 2 three times a day DNF UNTIL 09-25-21 Last Documented On 2 11:28AM By Beto Patton ; [facility] oxyCODONE HCl 5 MG Oral Tablet 09/24/2021 - 09/29/2021 Provider: Micah booker MD Diagnosis: 1-2 po q 4-6h DNF UNTIL 09-25-21 Last Documented On 2 11:28AM By Beto Patton ; [facility] traMADol HCl 50 MG Oral Tablet 09/24/2021 - 09/29/2021 Provider: Micah booker MD Diagnosis: 1-2 po q 4-6h DNF UNTIL 09-25-21 Last Documented On 2 11:28AM By Beto Patton ; [facility] Meloxicam 15 MG Oral Tablet 09/24/2021 - 10/24/2021 Provider: Micah booker MD Diagnosis: once a day DNF UNTIL 09-25-21 Last Documented On 11:28AM By Beto Patton ; [facility] Cefadroxil 500 MG Oral Capsule 09/24/2021 - 09/27/2021 Provider: Micah booker MD Diagnosis: twice a day DNF UNTIL 09-25-21 Last Documented On 2 11:28AM By Beto Patton ; [facility] Lidocaine 5% External Patch 01/03/2021 - 03/04/2021 Provider: Micah booker MD Diagnosis: once a day Last Documented On 1 3:45PM By Beto Patton ; [facility] Mupirocin 2% External Ointment 09/01/2017 - 09/06/2017 Provider: Micah booker MD Diagnosis: Apply to nostrils 3 time a d ay 5 days prior to surgery. Last Documented On 8 2:23PM By Katiana Awad ; [facility] TraMADol HCl 50MG Oral Tablet 08/28/2017 - 09/12/2017 Provider: Micah booker MD Diagnosis: Take 1-2 tablet every 8 hrs prn pain Last Documented On 8 3:39PM By Katiana Awad ; [facility] Celecoxib 50MG Oral Capsule 06/25/2017 - 07/25/2017 Provider: Micah booker MD Diagnosis: 2 once a day with food and plenty of water Last Documented On 8 4:54PM By Danny Rebollar ; [facility] Medications Administered Includes: Administered Medications from this encounter No Administered Medications Recorded Vital Signs Includes: Vital Signs from this encounter Vital Name 11/17/2022 08:31A Height (in) 72 Note: dp Last Documented: On 11/17/2022 8:31AM ; [facility] Results Includes: Results discussed during this encounter No Results Recorded For Specified Dates History of Present Illness Includes: History of Present Illness from this encounter HPI Susie Che is a 66 year old female. - Allergy list reviewed - Problem list reviewed - Medication list reviewed Social History Description Last Updated No recent change in diet 11/21/2021 Last Documented On 3 8:31AM ; [facility] Not a current smoker. 11/21/2021 Last Documented On 3 8:31AM ; [facility] Not using drugs 11/21/2021 Last Documented On 3 8:31AM ; [facility] Not a smoker 11/21/2021 Last Documented On 3 8:31AM ; [facility] Non-smoker 11/08/2020 Last Documented On 3 8:31AM ; [facility] Caffeine use 11/08/2020 Last Documented On 3 8:31AM ; [facility] Exercising regularly 11/08/2020 Last Documented On 3 8:31AM ; [facility] Not a current smoker. 11/08/2020 Last Documented On 3 8:31AM ; [facility] Recent change in diet 11/08/2020 Last Documented On 3 8:31AM ; [facility] No tobacco use 06/25/2017 Last Documented On 3 8:31AM ; [facility] Smoking status : Never smoker 06/25/2017 Last Documented On 3 8:31AM ; [facility] Not a current smoker 06/25/2017 Last Documented On 3 8:31AM ; [facility] Not using alcohol 06/25/2017 Last Documented On 3 8:31AM ; [facility] Procedures and Surgical History Includes: Procedures from this encounter Procedures Code Diagnosis Performing Provider Service Location Service Date X-RAY EXAM OF KNEE 3 VIEWS (LEFT) 41398 Pain in left knee, Presence of left artificial knee joint Danny Rebollar PA-C [facility] 11/17/2022 Last Documented On 3 3:52PM ; [facility] use of tobacco assessment performed 1000F Last Documented On 3 8:31AM ; [facility] patient screened for future fall risk 3288F Last Documented On 3 8:31AM ; [facility] Pt received screening for fall risk G8270 Last Documented On 3 8:31AM ; [facility] Surgical History Last Updated History of hysterectomy 06/25/2017 Last Documented On 3 8:31AM ; [facility] Medical History Includes: Medical History addressed during this encounter Description Last Updated History of asthma 11/21/2021 Last Documented On 3 8:31AM ; [facility] History of Hypertension 11/21/2021 Last Documented On 3 8:31AM ; [facility] History of Gallbladder 11/08/2020 Last Documented On 3 8:31AM ; [facility] Hypertension 11/08/2020 Last Documented On 3 8:31AM ; [facility] Hysterectomy 11/08/2020 Last Documented On 3 8:31AM ; [facility] No recent immunization for flu 1 Last Documented On 3 8:31AM ; [facility] No recent immunization for pneumococcal pneumonia 11/08/2020 Last Documented On 3 8:31AM ; [facility] Sleep Apnea 11/08/2020 Last Documented On 3 8:31AM ; [facility] Total hip replacement 11/08/2020 Last Documented On 3 8:31AM ; [facility] History of heart disease 06/25/2017 Last Documented On 3 8:31AM ; [facility] Family History Includes: Family History addressed during this encounter Description Last Updated Diabetes mellitus 11/08/2020 Last Documented On 3 8:31AM ; [facility] Family history of cancer 11/08/2020 Last Documented On 3 8:31AM ; [facility] Family history of heart disease 11/09/19 21 Last Documented On 3 8:31AM ; [facility] Family history of hypertension 1 Last Documented On 3 8:31AM ; [facility] Stroke / Seizures 11/08/2020 Last Documented On 3 8:31AM ; [facility] Sororal history of diabetes mellitus 11/2017 Last Documented On 3 8:31AM ; [facility] Fraternal history of family history of h eart disease 06/25/2017 Last Documented On 3 8:31AM ; [facility] Maternal history of diabetes mellitus Last Documented On 3 8:31AM ; [facility] Review of Systems Includes: Review of Systems [...] complaint of seasonal allergic reaction. reviewed 11/21/2021 Mental Status Includes: Mental Status from this encounter Description No anxiety Functional Status Includes: Functional Status from this encounter No Functional Status Recorded Physical Exam Includes: Physical Exam from this encounter Allergies Includes: Active Allergies No Known Allergies Encounters Encounter Provider Location Date Check-In Time Check-Out Time Diagnosis Follow Up Danny Rebollar PA-C [facility] 3 8:10AM 9:13AM Insurance Includes: Active Insurance Policies Plan Name Member ID Group # Subscriber Relationship Effect mary Dates 1 - [facility] [id number] Susie Che Self 04/20/2017 - Unknown Clinical Notes Includes: Clinical Notes from this encounter * Progress note Date Encounter Last Documented by 11/17/2022 Follow Up Last documented on 07/22/2023; 8:41 AM, Danny Rebollar PA-C; [facility] Active Problems & Conditions - Joint Pain, [...]
--- NOTE | 2023-10-12 12:46 | XR_ITS ---
FINAL REPORT TECHNIQUE: 5 views CLINICAL HISTORY: NECK PAIN COMPARISON: None FINDINGS: There is no fracture present. There is no malalignment. The patient has undergone a prior C4-5 fusion. There is mild degenerative disc disease present in the lower cervical spine. There is bony neural foraminal narrowing at both the C4-5 and C5-6 levels bilaterally. IMPRESSION: Degenerative change as described. No acute bony abnormality identified. Reviewed, Interpreted and Dictated by Jessica Leger MD Transcribed by Geovanna Calabrese Authenticated and [facility]
== END 2023-10-12 23:59 | disposition home or self-care (01) ==
LOC: RAD 12:35
PROVIDERS: PCP Nurse Practitioner Family; Visit Provider Nurse Practitioner Family
DX: M54.2 Cervicalgia (principal)
CPT/HCPCS: 72050

== ENCOUNTER 2023-11-25 14:52 | Outpatient (CLI) | payer BC, SELFPAY ==
--- NOTE | 2023-11-25 14:58 | CA_ITS ---
APPROVED REPORT EXAM: Comprehensive 2D, Doppler, and color-flow Echocardiogram Desktop Manager: Maylin Braxton RVT Ht: 6 ft 1 in Wt: 234lbs BSA: 2.30 BP: 189/93 mmHg Indications: bradycardia,syncope,asthma,hx smoking 2D Dimensions IVSd 1.57 cm F: 0.6-1.0 LVEF (Visual) 66.80 % PWd 1.01 cm F: 0.6 - 1.0 LA Volume 71.40 mL LVDd 5.28 cm F: 3.9 - 5.3 LA Volume Index 31.04 mL/m2 (M/F) 16-34 LVDs 3.31 cm F: 2.2 - 3.5 M-Mode Dimensions LA Diam 4.01 cm (1.9-4.0) LV Diastology E Decel Time 267 (160-240 msec) E/A Ratio 0.5 Aortic Valve ROSALIND Index 1.14 cm2/m2 AoV Peak Charles. 161.0 (50-130 cm/s) AO Peak GR. 10.40 mmHg AO Mean GR. 5.40 (<5 mmHg) AO VTI 35.4 (18-25 cm) ROSALIND (VTI) 2.69 (2.5-4.5 cm2) Mitral Valve MV E Max Charles. 48.0 (40-130 cm/s) MV A Velocity 91.0 (40-130 cm/s) E/A Ratio 0.53 MV PHT 78.0 ms Pulmonary Valve PV Peak Velocity 114.0 (50-150 cm/s) Tricuspid Valve TR P. Velocity 201.00 cm/s RAP Estimate 10.00 mmHg RVSP 26.20 mmHg Left Ventricle The left ventricle is normal size. The left ventricular systolic function is normal. The left ventricular ejection fraction is within the normal range. There is marked increased in LV wall thickness (IVSd 1.6 cm). There is no LVOT obstruction at rest. There is normal LV segmental wall motion. Diastolic function is indeterminate. LVEF is 60%. Right Ventricle The right ventricle is normal size. The right ventricular systolic function is normal. Atria The left atrium size is normal. The right atrium size is normal. There is no Doppler evidence of interatrial shunt. Aortic Valve The aortic valve is mildly thickened. There is no aortic valvular stenosis. Trace aortic regurgitation is present. Mitral Valve There is systolic anterior motion (JORDYN) of the mitral valve. No evidence of mitral valve stenosis. Trace mitral valve regurgitation noted. Tricuspid Valve The tricuspid valve leaflets are thin and pliable. Trace tricuspid regurgitation. RVSP is 15-20 mmHg. Pulmonic Valve The pulmonary valve is normal in structure. Trace pulmonic regurgitation. Great Vessels The aortic root is normal in size. The ascending aorta is normal in size. IVC is normal in size and collapses >50% with inspiration. Pericardium There is no pericardial effusion. Other Information Study Quality: Fair Conclusion Normal biventricular systolic function. Marked increased in LV wall thickness (IVSd 1.6 cm). There is no LVOT obstruction at rest. There is systolic anterior motion (JORDYN) of the mitral valve. Mild MR. Electronically signed by : Henna Medellin MD 11/29/2023 19:24:21
== END 2023-11-25 23:59 | disposition home or self-care (01) ==
LOC: RT 14:53
PROVIDERS: PCP Family Medicine; Visit Provider Nurse Practitioner Family
DX: R55 Syncope and collapse (principal)
CPT/HCPCS: 93306

== ENCOUNTER 2025-01-17 08:41 | Outpatient (CLI) | payer BC, SELFPAY ==
--- OUTSIDE RECORDS SUMMARY | 2024-06-17 05:00 | XMS_ITS ---
Author Organization [facility] Address [address] [facility] [address] [place], [place] [id number] Care Team Providers Care Laundry Room Attendant Name Role Phone Desire Sharif Primary Care Provider Rosalinda Jacobs Unavailable [phone] Allergies Allergen (clinical drug ingredient) Drug/Non Drug Allergy documented on EMR Reaction Allergy Type Onset Date Status nitrofurantoin, macrocrystals / nitrofurantoin, monohydrate Macrobid Unknown Drug Allergy Active chlordiazepoxide chlordiazePOXIDE Unknown Drug Allergy Active Penicillin Unknown Drug Allergy Active Results Component Value Reference Range Notes Influenza Screen (in house) Reviewed date:06/17/2024 12:03:08 PM Interpretation:neg Performing Lab: Notes/Report: neg results neg CBC Fingerstick (in house) Reviewed date:06/17/2024 12:03:21 PM Interpretation: Performing Lab: Notes/Report: wbc 7.4 3.5 - 10 lym 18.7 15 - 50 mid 4.6 2 - 15 gran 76.7 35 - 80 rbc 5.05 3.5 - 5.5 hgb 14.6 11.5 - 16.5 hct 43.7 35 - 55 mcv 86.5 75 - 100 mch 28.9 25 - 35 mchc 33.4 31 - 38 plat 141 100 - 400 P-Comprehensive Metabolic Pa bryanna (CMP) Reviewed date:06/22/2024 08:52:13 AM Interpretation:gluc 122, Cr 1.05, gfr 58 Performing Lab: Notes/Report: Test performed by [facility] , [address], [place] [address] John Santo MD, Gospel Worker CLIA: [id number] Sodium 143 135-145 mmol/L Potassium 4.2 3.5-5.3 mmol/L Chloride 104 97-108 mmol/L CO2 26 22-32 mmol/L Glucose 122 65-99 mg/dL BUN 17 8-23 mg/dL Creatinine 1.05 0.50-1.00 mg/dL Calcium 8.9 8.6-10.4 mg/dL eGFR by Creatinine 58 >59 mL/min/1.73m2 Protein 6.8 6.0-8.3 g/dL Albumin 4.1 3.5-5.3 g/dL Alkaline Phosphatase 85 35-121 IU/L ALT (SGPT) 16 <5-47 IU/L AST (SGOT) 13 <5-40 IU/L Bilirubin, Total 0.8 <0.2-1.2 mg/dL A/G Ratio 1.5 1.1-2.5 P-CPK Reviewed date:06/22/2024 08:52:13 AM Interpretation:Normal Performing Lab: Notes/Report: Test performed by [facility] [address] [place] [address] , [place] [address] John Santo MD, Gospel Worker CLIA: [id number] Creatine Kinase 58 20-180 U/L P-TSH reflex to FT4 Reviewed date:06/22/2024 08:52:13 AM Interpretation:Normal Performing Lab: Notes/Report: Test performed by [facility] [address] [place] [address] , [place] [address] John Santo MD, Gospel Worker CLIA: [id number] TSH reflex to FT4 1.86 0.43-5.25 mU/L TEN-Upper Respiratory PCR Reviewed date:06/20/2024 08:48:52 AM Interpretation:Abnormal Performing Lab: Notes/Report: Abnormal Covid test (in house) Reviewed date:06/17/2024 12:03:35 PM Interpretation:neg Performing Lab: Notes/Report: neg Result: neg REASON FOR VISIT low grade fever, flu like symptoms Medications Medication SIG (Take, Route, Frequency, Duration) Notes Start Date End Date Status Nystatin-Triamcinolone 180615-2.1 UNIT/GM 1 destiny applied topically 2 times a day; Duration: 30 days 06/26/2021 Active Albuterol Sulfate (2.5 MG/3ML) 0.083% 3 ml Inhalation every 6 hrs, prn 06/17/2024 Active Lisinopril 20 MG 1 tab(s) orally twic e a day Active Levalbuterol HCl 1.25 MG/3ML 3 ml as needed Inhalation every 6 hours prn 06/10/2024 Active Vital Signs Weight 230.4 lbs 06/17/2024 Blood pressure systolic 130 mm Hg 06/17/19 25 Blood pressure diastolic 90 mm Hg 025 Heart Rate 70 /min 06/17/2024 Height 72 in 06/17/2024 BMI 31.24 kg/m2 06/17/2024 Encounters Encounter Location Date Provider Diagnosis [facility] [address], [place] [id number] 06/17/2024 Rosalinda Jacobs Acute URI J06.9 ; Bronchitis J40 and Body aches R52 Assessments Encounter Date Diagnosis (ICD Code) Assessment Notes Treatment Notes Treatment Clinical Notes Section Notes 06/17/2024 Acute URI (ICD-10 - J06.9) She has cough medication at home. She has finished the zpack and steroids without improvement. Will get a TEN respiratory panel. 06/17/2024 Bronchitis (ICD-10 - J40) Pt prefers xopenex to albuterol. Albuterol was cancelled and xopenex was sent to the pharmacy. 06/17/2024 Body aches (ICD-10 - R52) Plan Of Treatment Medication Medication Name Sig Start Date Stop Date Notes Albuterol Sulfate (2.5 MG/3M L) 0.083% 3 ml Inhalation every 6 hrs, prn 06/17/2024 Levalbuterol HCl 1.25 MG/3ML 3 ml as nee ded Inhalation every 6 hours prn 06/10/2024 Treatment Notes Assessment Notes Acute URI She has cough medica tion at home. She has finished the zpack and steroids without improvement. Will get a TEN respiratory panel. Bronchitis Pt prefers xopenex t o albuterol. Albuterol was cancelled and xopenex was sent to the pharmacy. Next Appt Details Follow Up: prn, Reason: Provider Name:Cassy Villalta ond, 01/17/2025 08:05:00 AM, [address], [address], [place], [place], [id number], Progress Notes * KATHERYN ALARCON ADOB:[birth year] (69 yo F)Acc No.[id number]:06/17/2024 Progress Notes Patient: KATHERYN MCKEON A Provider: ARNULFO Rodríguez :1955 A ge:68 Y S ex:Female Date:06/17/2024 Address:[address], [id number] Pcp:Desire Sharif Subjective: * Chief Complaints: * 1 . Low grade fever, flu like symptoms. * HPI: E NT/respiratory: 68 year old female presents with c/o sore throat. c/o cough. c/o nasal congestion. c/o Fever P t sts for the past 2 days her temp has been 94 and before then it was 93, and sts that Thursday her temp was the lowest it has been. Pt sts yesterday was the first day in a week she has been able to get her temp back up to 97. Pt sts right now her feet are very cold with chills. She ran a fever of over 100 yesterday. She has been sick for 3 weeks. She thought she initially had to flu but was never tested. She did call into the office and received rx's for bromfed, a medrol pack, a zpack, and albuterol on 06/06/24.? She also received neb vials a few days later. She states she has continued to feel poorly and also has continued to work. 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 c/o body aches. Denies : headache. G astroenterology: c/o Nausea. c/o Diarrhea. Denies : Vomiting. * ROS: A LLERGY: no C ough. n o R unny nose. C ARDIOLOGY: no C hest pain. S hortness of breath y es, m ostly with activity. G ASTROENTEROLOGY: no V omiting. n o D iarrhea. U ROLOGY: no D ifficulty urinating. n o B lood in urine. * Medical History: H ypertension, Sarcoidosis, Prolapse of bladder into vaginal vault. * Surgical History: t otal hysterectomy , cholecystectomy , bladder tacked , colon partial removal , heart cath @ [facility] , anterior and posterior repair-colporraphy to fix prolapse of organs into the genital tract 11/2015, Enterocele - [place] 09/01/16, Bladder Tact and Mesh placed 4th Time 08/2016, Total Hip Replacement at [facility]. Dr. Patton 09/21/2017. * Hospitalization/Major Diagno stic Procedure: f or above surgery 11/2015. * Family History: F ather: , hypertension, cancer [place]. M other: alive, cancer, hypertension, hyperlipidemia, diabetes. S iblings: diabetes, hypertension, hyperlipidemia. 3 brother(s) , 6 sister(s) . 1 son(s) - healthy. . * Social History: C URRENT TOBACCO USE S moking Status: Patient does NOT smoke. C affeine: no. Marital Status: . Past smoking status: no, quit 2000 after smoking 32 years. Alcohol: no. * Medications: T aking Nystatin-Triamcinolone 930823-3.1 UNIT/GM Cream 1 destiny applied topically 2 times a day , Taking Lisinopril 20 MG Tablet 1 tab(s) orally twice a day , Taking Levalbuterol HCl 1.25 MG/3ML Nebulization Solution 3 mL as needed Inhalation every 6 hours prn , Medication List reviewed and reconciled with the patient * Allergies: c hlordiazePOXIDE, Penicillin, Macrobid: Side Effects. Objective: * Vitals: W t:230.4, Temp:97.6, BP:130/90, HR:70, O2 Sat:100% on RA, Nurse:sadaf, Ht: 72, BMI:31.24. * Examination: E NT/Respiratory: General Appearance: Does not appear to feel well. E ars: a uditory canals normal bilaterally, TM's WNL. N ose : turbinates red, congested.?Sinuses : tender maxillary sinuses bilaterally. O ral cavity : erythema without exudate on pharynx. N alfred : n o cervical lymphadenopathy. H eart : R RR, normal S1 S2, no murmurs. L ungs: c lear to auscultation bilaterally. A bdomen : diffuse and mildly tender, BS present, soft, nontender. Assessment: * Assessment: 1. A martin URI - J06.9 (Primary) 2 . B ronchitis - J40 3 .?Body aches - R52 Plan: * Treatment: Value Reference Range r esults neg * MellohueImelda 06/17/2024 9:24: 35 AM > Provider reviewed results while patient in office. ?LAB: CBC Fingerstick (in house) (Collection Date & Time - 06/17/2024)* Value Reference Range w bc 7.4 3.5 - 10 * l ym 18.7 15 - 50 * m id 4.6 2 - 15 * g ran 76.7 35 - 80 * r bc 5.05 3.5 - 5.5 * h gb 14.6 11.5 - 16.5 * h ct 43.7 35 - 55 * m cv 86.5 75 - 100 * m ch 28.9 25 - 35 * m chc 33.4 31 - 38 * p lat 141 100 - 400 * Imelda Mccloud 06/17/2024 9:28: 05 AM > Provider reviewed results while patient in office. ?LAB: TEN-Upper Respiratory PCR (Collection Date & Time - 06/17/2024)? Abnormal* JeanKellie 06/20/2024 8:48:4 7 AM > See phone encounter ?LAB: Covid test (in house) (Collection Date & Time - 06/17/2024)?neg* Value Reference Range R esult: neg * AmeImelda 06/17/2024 9:24: 08 AM > Provider reviewed results while patient in office. Notes: She has cough medication at home. She has finished the zpack and steroids without improvement. Will get a TEN respiratory panel.??2.?Bronchitis? Start Albuterol Sulfate Nebulization Solution, (2.5 MG/3ML) 0.083%, 3 ml, Inhalation, every 6 hrs, prn, 60, Refills 2;?Refill Levalbuterol HCl Nebulization Solution, 1.25 MG/3ML, 3 ml as needed,Inhalation, every 6 hours prn, 60, Refills 2.?? Notes: Pt prefers xopenex to albuterol. Albuterol was cancelled and xopenex was sent to the pharmacy.??3.?Body aches?LAB: P-Comprehensive Metabolic Panel (CMP) (Collection Date & Time - 06/17/2024 08:45 AM)?gluc 122, Cr 1.05, gfr 58* Value Reference Range A /G Ratio 1.5 1.1-2.5 - * A lbumin 4.1 3.5-5.3 - g/dL * A lkaline Phosphatase 85 35-121 - IU/L * A LT (SGPT) 16 <5-47 - IU/L * A ST (SGOT) 13 <5-40 - IU/L * B ilirubin, Total 0.8 <0.2-1.2 - mg/dL * B UN 17 8-23 - mg/dL * C alcium 8.9 8.6-10.4 - mg/dL * C hloride 104 97-108 - mmol/L * C O2 26 22-32 - mmol/L * C reatinine 1.05 H 0.50-1.00 - mg/dL * G lucose 122 H 65-99 - mg/dL * P otassium 4.2 3.5-5.3 - mmol/L * S odium 143 135-145 - mmol/L * P rotein 6.8 6.0-8.3 - g/dL * e GFR by Creatinine 58 L >59 - mL/min/1.73m2 * Rosalinda Jacobs 06/22/2024 8:5 2:07 AM > see TE ?LAB: P-CPK (Collection Date & Time - 06/17/2024 08:45 AM)?Normal* Value Reference Range C reatine Kinase 58 20-180 - U/L * Rosalinda Jacobs 06/22/2024 8:5 2:07 AM > see TE ?LAB: P-TSH reflex to FT4 (Collection Date & Time - 06/17/2024 08:45 AM)? Normal* Value Reference Range T SH reflex to FT4 1.86 0.43-5.25 - mU/L * ReynaldoRosalinda Hogan 06/22/2024 8:5 2:07 AM > see TE * Procedure Codes: [address] [place], [address] Flu Test- Nasal Swab, Modifiers: QW , 64980 COVID TEST IN HOUSE, Modifiers: QW , 50295 CAPILLARY BLOOD DRAW, 46801 CBC WITH AUTO DIFF, 3075F SYST BP GE 130 - 139MM HG, 3080F DIAST BP = 90 MM HG * Follow Up: p rn * Images: Billing Information: * Visit Code: 29131 Office Visit, Est Pt., Level 3. * Procedure Codes: [address] [place]. [address] Flu Test- Nasal Swab. Modifiers: QW 40527 COVID TEST IN HOUSE. Modifiers: QW 02999 CAPILLARY BLOOD DRAW. 82316 CBC WITH AUTO DIFF. 3075F SYST BP GE 130 - 139MM HG. 3080F DIAST BP = 90 MM HG. * Electronic signature of ARNULFO Anne on 01/17/2025 at 08:46 AM EDT Sign off status: Pending * Provider: ARNULFO Rodríguez Date: 0 06/17/2024 Generated for César kinney/Rosalva/eTransmitting on: 0 01/17/2025 08:46 AM EDT History and Physical Notes * HPI (History of Present Illness) Category Sub-Category Detail Notes Category Not es ENT/respiratory sore throat cough Fever Pt sts for the past 2 days her temp has been 94 and before then it was 93, and sts that Thursday her temp was the lowest it has been. Pt sts yesterday was the first day in a week she has been able to get her temp back up to 97. Pt sts right now her feet are very cold with chills. She ran a fever of over 100 yesterday. She has been sick for 3 weeks. She thought she initially had to flu but was never tested. She did call into the office and received rx's for bromfed, a medrol pack, a zpack, and albuterol on 06/06/24. She also received neb vials a few days later. She states she has continued to feel poorly and also has continued to work. 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 headache nasal congestion body aches Gastroenterology Vomiting Diarrhea Nausea Examination Category Sub-Category Detail Notes Category Not es ENT/Respiratory Oral cavity : erythema without exudate on pharynx Sinuses : tender maxillary sin uses bilaterally Ears: auditory canals norm al bilaterally, TM's WNL Neck : no cervical lymphade nopathy Heart : RRR, normal S1 S2, n o murmurs Lungs: clear to auscultatio n bilaterally Abdomen : diffuse and mildly t alsysia, BS present, soft, nontender General Appearance: Does not appear to f eel well Nose : turbinates red, mignon ested
--- OUTSIDE RECORDS SUMMARY | 2025-01-09 12:15 | XMS_ITS ---
Author Organization [facility] Address [address] [place] [id number] Care Team Providers Care Inspector Material Disposition Name Role Phone Desire Sharif Primary Care Provider Cassy Santizo Unavailable [phone] Allergies Allergen (clinical drug ingredient) Drug/Non Drug Allergy documented on EMR Reaction Allergy Type Onset Date Status nitrofurantoin, macrocrystals / nitrofurantoin, monohydrate Macrobid Unknown Drug Allergy Active chlordiazepoxide chlordiazePOXIDE Unknown Drug Allergy Active Penicillin Unknown Drug Allergy Active REASON FOR VISIT having trouble with scalp itching and hair loss Medications Medication SIG (Take, Route, Frequency, Duration) Notes Start Date End Date Status Levalbuterol HCl 1.25 MG/3ML 3 ml as needed Inhalation every 6 hours prn 06/10/2024 Active Lisinopril 40 MG 1 tablet Orally Once a day; Duration: 90 days Active Nystatin 712502 UNIT/GM 1 application Ex ternally Twice a day; Duration: 30 days 01/09/2025 Active Vital Signs Weight 231.6 lbs 01/09/2025 Blood pressure systolic 146 mm Hg 01/10/20 25 Blood pressure diastolic 80 mm Hg 025 Heart Rate 67 /min 01/09/2025 Height 72 in 01/09/2025 BMI 31.41 kg/m2 01/09/2025 Encounters Encounter Location Date Provider Diagnosis [facility] [address] [place] [id number] 01/09/2025 Cassy Santizo Alopecia L65.9 ; Fungal infection B49 and HTN (hypertension) I10 Assessments Encounter Date Diagnosis (ICD Code) Assessment Notes Treatment Notes Treatment Clinical Notes Section Notes 01/09/2025 Alopecia (ICD-10 - L65.9) discussed hair/scalp care; she will try Nizoral shampoo with direction to leave on 3-5 minutes; encouraged her to wash hair infrequently and to massage scalp; she does use blow dryr but no curling irons; she colors her own hair and has changed products 01/09/2025 Fungal infection (ICD-10 - B49) will use this in left axilla 01/09/2025 HTN (hypertension) (ICD-10 - I10) Plan Of Treatment Medication Medication Name Sig Start Date Stop Date Notes Lisinopril 40 MG 1 tablet Orally Once a day; Duration: 90 days Nystatin 664359 UNIT/GM 1 application Ex ternally Twice a day; Duration: 30 days 01/09/2025 Treatment Notes Assessment Notes Alopecia discussed hair/scalp care; she will try Nizoral shampoo with direction to leave on 3-5 minutes; encouraged her to wash hair infrequently and to massage scalp; she does use blow dryr but no curling irons; she colors her own hair and has changed products Fungal infection will use this in lef t axilla Next Appt Details Follow Up: 6 Months,and prn, Reason: Provider Name:Cassy higgins, 01/17/2025 08:05:00 AM, [address] [facility] [address] [facility], [address] , [place], [place], [id number], Progress Notes * DORIANPAULH ADOB:[birth year] (69 yo F)Acc No.[id number]:01/09/2025 Progress Notes Patient: KATHERYN MCKEON A Provider: KACY Mejía :1955 A ge:69 Y S ex:Female Date:01/09/2025 Address:[address] [id number] Pcp:Desire Sharif Subjective: * Chief Complaints: * 1 . Having trouble with scalp itching and hair loss. * HPI: E ndocrinology: 69 year old female presents with c/o Hair Loss P t states she is having troble with her scalp and she is losing hair. Pt states this started in August. * ROS: D ERMATOLOGY: Positive for s he is concerned about several papules scattered on her face and arms; she does have a Derm appt in Apr 2025. M USCULOSKELETAL: Joint pain y es, o ngoing left shoulder pain for which she has been to PT and seen orthopedics; also left knee pain. * Medical History: H ypertension, Sarcoidosis, Prolapse of bladder into vaginal vault. * Surgical History: t otal hysterectomy , cholecystectomy , bladder tacked , colon partial removal , heart cath @ [facility] , anterior and posterior repair-colporraphy to fix prolapse of organs into the genital tract 11/2015, Enterocele - [place] 09/01/16, Bladder Tact and Mesh placed 4th Time 08/2016, Total Hip Replacement at [facility]. Dr. Patton 09/21/2017. * Hospitalization/Major Diagno stic Procedure: f or above surgery 11/2015. * Family History: F ather: , hypertension, cancer [place]. M other: alive, cancer, hypertension, hyperlipidemia, diabetes. S iblings: diabetes, hypertension, hyperlipidemia. 3 brother(s) , 6 sister(s) . 1 son(s) - healthy. . * Social History: C URRENT TOBACCO USE S moking Status: Patient does NOT smoke. C affeine: no. Marital Status: . Past smoking status: no, quit 2000 after smoking 32 years. Alcohol: no. * Medications: T aking Levalbuterol HCl 1.25 MG/3ML Nebulization Solution 3 ml as needed Inhalation every 6 hours prn , Taking Lisinopril 40 MG Tablet 1 tablet Orally Once a day , Discontinued Nystatin-Triamcinolone 204465-4.1 UNIT/GM Cream 1 destiny applied topically 2 times a day , Discontinued Albuterol Sulfate (2.5 MG/3ML) 0.083% Nebulization Solution 3 ml Inhalation every 6 hrs, prn , Discontinued Cefuroxime Axetil 500 MG Tablet 1 tablet Orally every 12 hrs , Discontinued Xopenex HFA 45 MCG/ACT Aerosol 1 puff as needed Inhalation every 6 hrs prn , Medication List reviewed and reconciled with the patient * Allergies: c hlordiazePOXIDE, Penicillin, Macrobid: Side Effects. Objective: * Vitals: W t: 231.6, Temp: 98.5, BP: 146/80, HR: 67, Nurse: pe, Ht: 72, BMI:31.41. * Examination: G eneral Examination: General Appearance: N AD, appears healthy, alert, pleasant, well nourished and hydrated. H eart: R RR, no ectopics. L ungs: C TAB A&P. S kin: s calp with red patches, and rare small papules; left axilla with hughes of pallor. Assessment: * Assessment: 1. A lopecia - L65.9 (Primary) 2 . F ungal infection - B49 3 . H TN (hypertension) - I10 Plan: * Treatment: 2. F ungal infection Start Nystatin Powder, 977320 UNIT/GM, 1 application, Externally, Twice a day, 30 days, 1, Refills 5. Notes: will use this in left axilla 3. H TN (hypertension) Refill Lisinopril Tablet, 40 MG, 1 tablet Orally Once a day, 90 days, 90, Refills 1. * Follow Up: 6 Months,and prn * Images: Billing Information: * Visit Code: 90024 Office Visit, Est Pt., Level 3. * Procedure Codes: * Electronic signature of Lilian Santizo APRN on 01/17/2025 at 08:46 AM EDT Sign off status: Pending * Provider: KACY Mejía Date: 01/09/2025 Generated for César kinney/Rosalva/Cecily on: 01/17/2025 08:46 AM EDT History and Physical Notes * HPI (History of Present Illness) Category Sub-Category Detail Notes Category Not es Endocrinology Hair Loss Pt states she is having troble with her scalp and she is losing hair. Pt states this started in August Examination Category Sub-Category Detail Notes Category Not es General Examination Heart: RRR, no ectopics Lungs: CTAB A&P General Appearance: NAD, appears healthy , alert, pleasant, well nourished and hydrated Skin: scalp with red patch es, and rare small papules; left axilla with hughes of pallor
--- OUTSIDE RECORDS SUMMARY | 2025-01-17 08:44 | XMS_ITS ---
Author Organization Unknown Vital Signs BpStanding BpSitting BpSupine Date Temperature HeartRate Weight Hei ght Spo2 Respiration Bmi HeadCircumference FieldCount TimeRecorded NeckCircumferen ce WaistCircumference Pulse 130/90 06/17 00:00 :00 97.6 70 230,6.4 0 6,0 31.2 4 6 11/27/2024 09:00:00
--- OUTSIDE RECORDS SUMMARY | 2025-01-17 08:45 | XMS_ITS | Clinical Summary ---
Author Organization [facility] Address [address] [place] [address] Care Team Providers Care Rn Cvicu Name Role Phone Kole PRIETO MD, Desire Dawkins Unavailable [phone] Kevin Hanson Primary Care Provider [phone] Allergies Active Allergy Reactions Criticality Noted Date Comments Chlordiazepoxide Hives 10/10/2014 Nitrofurantoin Shortness of Breath,Sweating High 12/2017 Penicillins Anaphylaxis High 01/26/2018 Medications lisinopril (PRINIVIL,ZESTR IL) 20 MG TABS Take 20 mg by mouth 2 (two) times daily. Active aspirin 81 MG TBEC Take 81 mg by mouth daily. Active acetaminophen (TYLENOL) 325 MG TABSIndications :pt takes 2000 mg daily Take 2,000 mg by mouth every 6 (six) hours as needed for Mild Pain (1-3). Active ibuprofen (ADVIL,MOTRIN) 800 MG TABS Take 1 tablet by mouth every 6 (six) hours as needed. 40 tablet 7 Active Additional Information Patient taking differently: 2,800 mgOral Every 6 hours PRN, Reported on 03/03/2017 Active Problems Problem Noted Date Diagnosed Date Postop check 09/16/2016 Vaginal enterocele 09/04/2016 Pelvic pain in female 10/26/2014 Levator spasm 10/26/2014 Cystocele 10/26/2014 Vaginal vault prolapse after hysterectomy 2014 Family History Medical History Relation Name Comments Heart Disease Father Cancer Mother Diabetes Mother Hypertension Mother Stroke Mother Relation Name Status Comments Father Mother Social History Tobacco Use Types Packs/Day Years Used Date Smoking Tobacco: Former Cigarettes Q uit: 10/10/2000 Smokeless Tobacco: Never Alcohol Use Standard Drinks/Week Comments No 0 (1 standard drink = 0.6 oz pur e alcohol) Comments No Sex and Gender Information Value Date Recorded Sex Assigned at Not on file Legal Sex Female 11:33 AM EDT Gender Identity Not on file Sexual Orientation Not on file Last Filed Vital Signs Vital Sign Reading Time Taken Comments Blood Pressure 127/70 01/26/2018 1:46 PM EDT Pulse 60 01/26/2018 1:46 PM EDT Temperature 37 C (98.6 F) 09/16/2016 10:26 AM EDT Respiratory Rate 16 01/26/2018 1:46 PM EDT Oxygen Saturation 97% 09/02/2016 3:05 PM EDT Inhaled Oxygen Concentration - - Weight 103.1 kg (227 lb 6.4 oz) 01/26/2018 1:46 PM EDT Height 185.4 cm (6' 1 ) 01/26/2018 1:46 PM EDT Body Mass Index 30 01/26/2018 1:46 PM EDT Plan of Treatment Health Maintenance Due Date Last Done Comments Hepatitis C Screening 1955 DTap,Tdap,and Td (1 - Tdap) 12/07/1966 Mammogram Screening 1995 Colonoscopy 12/07/2000 Pneumococcal 50+ (1 of 1 - PCV) 12/07/2005 Shingrix (#1) 12/07/2005 DEXA Scan 12/07/2020 Influenza Vaccine (#1) 2024 RSV Vaccine (60+ or ) (1 - 1-dose 75+ series) 12/07/2030 HPV Aged Out No longer eligi ble based on patient's age to complete this topic Meningococcal conjugate calin nt 4 (MCV4) Aged Out No longer eligible b ased on patient's age to complete this topic RSV Immunization (<20 months) Aged Out No longer eligible based on patient's age to complete this topic Medical Devices Implanted Type Area Flight Control Specialist Device Identifier Shelf Expiration Date Model / Serial / Lot Mesh - [id number] Implanted:Qty: 1 on 09/01/2016 by Marvin Rubio MD at [facility] N/A: Pelvis COLOPLAST 04/08/2019 [id number] / / Description:HEMANTLLE L TAMIKO YPROPYLENE MESH 24 X 8CM Insurance STANISLAV MEADE ALL OTHERS NOT MEDICARE Advance Directives * Full Code (Latest Code Status on File) Date Activated Date Inactivated Comments 11/24/2014 4:34 PM 11/25/2014 5:04 PM Care Teams Rn Cvicu Relationship Specialty Start Date End Date Kevin Hanson [address] [place] [address] PCP - General 09/01/16 Desire Sharif MD, MD [address] [facility] [address] [address] 10/10/14
--- OUTSIDE RECORDS SUMMARY | 2025-01-17 08:45 | XMS_ITS | Patient Health Record ---
Author Organization [facility] Address [address] [facility] [facility] [address] [place] [address] Care Team Providers Care Ssis Architect Name Role Phone Анна Butt Unavailable [phone] Allergies Allergen (clinical drug ingredient) Drug/Non Drug Allergy documented on EMR Reaction Allergy Type Onset Date Status LIBRIUM (uncoded) Unspecified Allergy 07/14/19 15 Active Reason For Referral No Information Problems Problem Type SNOMED Code ICD Code Onset Dates Problem Status W/U Status Risk Notes Problem Family history of malignant neoplasm of gastrointestinal tract (467622588) Fam Hx malignant neoplasm - digestive organs (Z80.0) 04/20/18 Active confirmed Family History of Colon Cancer Problem Family history of malignant neoplasm of ovary (032411545) Fam Hx malignant neoplasm - ovary (Z80.41) 04/20/18 Active confirmed Family History of Ovarian Cancer Problem Family history of stroke (940858292) Family history of cerebral embolic infarction (Z82.3) 04/20/18 Active confirmed Family History of CVA or Stroke Problem Family history of ischemic heart disease (761555479) Fam hx-ischem heart disease (Z82.49) 04/20/18 Active confirmed Family History of Coronary Heart Disease Plan Of Treatment No Information Medical (General) History Medical History History ICD Code Endometriosis Chronic pelvic pain Prolapse Uterus urinary incontinence Irritable bowel High Blood Pressure Sarcoidosis venous insufficiency Bradycardia HYDROCODONE-ACETAMINOPHEN 5-325 MG ORAL TABLET LISINOPRIL 30 MG ORAL TABLET Surgical History Surgery Date(Month/Year) JESSICA with BSO Appendectomy Cholecystectomy Partial colectomy Mesh ASC with Beltrán Laparotomy for mesh excision
--- OUTSIDE RECORDS SUMMARY | 2025-01-17 08:45 | XMS_ITS | Clinical Summary ---
Author Organization [facility] Address [address] [place] [address] Care Team Providers Care Time Buyer Name Role Phone Gerardo Sharif MD Primary Care Provider [phone] Allergies Active Allergy Reactions Criticality Noted Date Comments Chlordiazepoxide Unknown - Patient st ates they do not know rxn details Low 10/27/2012 Nitrofurantoin Shortness of breath, Other - please document in the comment field High 01/26/2018 Penicillins Anaphylaxis High 01/26/2018 Medications acetaminophen (Tylenol) 325 MG tablet Take 2,000 mg by mouth. Active aspirin 81 MG EC tablet Take 81 mg by mouth. Active albuterol 108 (90 Base) MCG/ACT inhaler 11/14/2020 Act mary ibuprofen 800 MG tablet TAKE ONE TABLET BY MOUTH EVERY 6 HOURS NEEDED 09/02/2016 Active lidocaine (Lidoderm) 5 % patch 01/03/2021 Active lisinopril 20 MG tablet 02/05/2021 Active Active Problems Problem Noted Date Diagnosed Date Hip pain 02/03/2017 Vaginal enterocele 09/04/2016 Vaginal vault prolapse after hysterectomy 2014 Levator spasm 10/26/2014 Cystocele 10/26/2014 Hematuria 10/27/2012 Postmenopausal atrophic vaginitis 10/27/2012 Sarcoidosis 10/27/2012 Resolved Problems Problem Noted Date Diagnosed Date Resolved Date Pelvic pain in female 10/26/20142024 Family History Medical History Relation Name Comments Diabetes Other 1 Heart disease Other 2 Hypercholesterolemia Other 3 Hypertension Other 4 Stroke Other 5 Relation Name Status Comments Other 1 Other 2 Other 3 Other 4 Other 5 Social History Tobacco Use Types Packs/Day Years Used Date Smoking Tobacco: Former Smokeless Tobacco: Never Comments Unknown Sex and Gender Information Value Date Recorded Sex Assigned at Not on file Legal Sex Female 8:02 PM EDT Gender Identity Not on file Sexual Orientation Not on file Last Filed Vital Signs Vital Sign Reading Time Taken Comments Blood Pressure 177/97 06/25/2021 12:58 PM EST Pulse 79 06/25/2021 12:58 PM EST Temperature - - Respiratory Rate - - Oxygen Saturation - - Inhaled Oxygen Concentration - - Weight 105 kg (231 lb 11.3 oz) 05/02/2021 3:53 P M EST Height 185.4 cm (6' 1 ) 05/02/2021 3:53 PM EST Body Mass Index 30.57 05/02/2021 3:53 PM EST Plan of Treatment Health Maintenance Due Date Last Done Comments [facility]-Bone Density Scan 1955 [facility]-Depression Screening 1955 [facility]-/Child/Adol SDOH Screenings 1955 [facility]- SDOH Screenings 12/07/1973 [facility]-Adult SDOH Screenings 12/07/1973 [facility]-DTaP,Tdap,and Td Vaccine s (1 - Tdap) 12/07/1974 CT Colonography 12/07/2000 Colonoscopy 12/07/2000 FIT-DNA 12/07/2000 FIT 12/07/2000 FOBT 12/07/2000 Sigmoidoscopy 12/07/2000 [facility]-Colorectal Cancer Screening 12/07/2000 [facility]-Pneumococcal Vaccine: 50 + Years (1 of 1 - PCV) 12/07/2005 [facility]Y-Zoster Vaccines (1 of 2) 12/07/2005 [id number] Vaccine ( - 2024- season) 2024 03/09/2021, 06/02/2020, 05/10/2020 [facility]-Influenza Vaccine (#1) 2024 [facility]-RSV Vaccine: 60+ Years o r (1 - 1-dose 75+ series) 12/07/2030 [facility]-Breast Cancer Screening Discontinued 02/15/2020 HPV Vaccines Aged Out No longer eligi ble based on patient's age to complete this topic [facility]-HIB Vaccines Aged Out No longer e ligible based on patient's age to complete this topic [facility]-Hepatitis A Vaccines Aged Out No longer eligible based on patient's age to complete this topic UKY-IPV Vaccines Aged Out No longer e ligible based on patient's age to complete this topic [facility]-Rotavirus Vaccines Aged Out No lo nger eligible based on patient's age to complete this topic Insurance ANTHEM Care Teams Time Buyer Relationship Specialty Start Date End Date Gerardo Sharif MD [address] [place] [address] PCP - General 08/31/20
--- OUTSIDE RECORDS SUMMARY | 2025-01-17 08:46 | XMS_ITS | Clinical Summary ---
Author Organization [facility] Address [address] [place] [address] Care Team Providers Care Test Data Developer Name Role Phone Tony Hanson MD Primary Care Provider Allergies Active Allergy Reactions Criticality Noted Date Comments Chlordiazepoxide Hives,Itching,Unknow n - Low Severity,Rash,Unknown (See Comments) High 10/27/2012 Metoprolol Unknown - Low Severity 01/27/2024 Nitrofurantoin Hives,Other (See Com ments),Shortness Of Breath High 01/26/2018 Penicillins Anaphylaxis,Swelling High 01/26/2018 Rosuvastatin Unknown - Low Severity 01/27/2024 Medications lisinopril (PRINIVIL,ZESTR IL) 20 MG tablet Take 2 tablets by mouth. 4 Active acetaminophen (TYLENOL) 325 MG tablet Take 2,000 mg by mouth. Active clotrimazole-be tamethasone (LOTRISONE) 1-0.05 % cream APPLY TO THE AFFECTED AND SURROUNDING AREAS OF SKIN BY TOPICAL ROUTE TWO (2) TIMES PER DAY IN THE MORNING AND EVENING FOR TWO (2) WEEKS Active Fluticasone Furoate-Vilante rol (Breo Ellipta) 100-25 MCG/ACT aerosol powder 1 puff Daily. 4 Active levalbuterol (XOPENEX HFA) 45 MCG/ACT inhaler 4 Active gabapentin (NEURONTIN) 300 MG capsuleIndicati ons:Cervical radiculopathy,D DD (degenerative disc disease), cervical,Hernia marjorie nucleus pulposus, C5-6 left Take 1 capsule by mouth 3 (Three) Times a Day. 90 capsule Active Active Problems No known active problems Family History Medical History Relation Name Comments Heart disease Brother Heart disease Father Cancer Mother Diabetes Mother Hypertension Mother Ovarian cancer Mother Stroke Mother Diabetes Sister Breast cancer Neg Hx Endometrial cancer Neg Hx Relation Name Status Comments Brother Father Mother Sister Social History Tobacco Use Types Packs/Day Years Used Date Smoking Tobacco: Former Cigarettes Passive Smoke Exposure: Past Smokeless Tobacco: Never Tobacco Cessation:Counseling Given: Not Answered Alcohol Use Standard Drinks/Week Comments Never 0 (1 standard drink = 0.6 oz pur e alcohol) Comments No Sex and Gender Information Value Date Recorded Sex Assigned at Not on file Legal Sex Female 10:02 AM EDT Gender Identity Not on file Sexual Orientation Not on file Last Filed Vital Signs Vital Sign Reading Time Taken Comments Blood Pressure - - Pulse - - Temperature 36.7 C (98 F) 02/23/2024 2:49 PM EST Respiratory Rate - - Oxygen Saturation - - Inhaled Oxygen Concentration - - Weight 107 kg (236 lb) 02/23/2024 2:49 PM EST Height 185.4 cm (6' 1 ) 02/23/2024 2:49 PM EST Body Mass Index 31.14 02/23/2024 2:49 PM EST Plan of Treatment Health Maintenance Due Date Last Done Comments DXA SCAN 1955 Pneumococcal Vaccine 50+ (1 of 2 - PCV) 12/07/1974 TDAP/TD VACCINES (1 - Tdap) 12/07/1974 COLOGUARD 12/07/2000 COLON CANCER SCREENING 5 YEA R SIGMOIDOSCOPY 12/07/2000 COLONOSCOPY 12/07/2000 COLORECTAL CANCER SCREENING 12/07/2000 CT COLONOGRAPHY 12/07/2000 FECAL OCCULT BLOOD TEST 12/07/2000 FIT Testing (1 year) 12/07/2000 ZOSTER VACCINE (1 of 2) 12/07/2005 MAMMOGRAM 11/22/2023 11/21/2021, 01/19, 11/24/2013 ANNUAL PHYSICAL 02/23/2024 HEPATITIS C SCREENING 02/23/2024 INFLUENZA VACCINE 11/18/2024 COVID-19 Vaccine ( season) 2024 03/09/2021, 06/02/2020, 05/10/2020 Procedures Procedure Name Priority Date/Time Associated Diagnosis Comments MAMMO SCREENING DIGITAL TOMOSYNTHESIS BILATERAL W CAD Routine 11/21/2021 1:22 PM EDT Visit for screening mammogram from Last 3 Months or Most Recently Relevant to Health Maintenance Results * Mammo Screening Digital Tomosynthesis Bilateral With CAD (11/21/2021 1:22 PM EDT) Anatomical Region Laterality Modality Breast N/A Mammography 12/01/2021 6:52 PM EDT Impressions 12/01/2021 6:53 PM EDT No findings suspicious for malignancy. ACR BI-RADS CATEGORY: 1, NEGATIVE RECOMMENDATION: Yearly mammogram, yearly clinical breast exam, and encourage self breast awareness. CAD was used. The standard false negative rate of mammography is between 10% and 25%. Complex patterns or increased breast density will markedly elevate the false negative rate of mammography. A letter, in lay terminology, with the results of this exam will be mailed to the patient. If there is a palpable area of concern, biopsy should be considered regardless of imaging findings. This report was finalized on 12/01/2021 6:53 PM by Crystal Mireles MD. Narrative 12/01/2021 6:53 PM EDT ROUTINE DIGITAL SCREENING MAMMOGRAM WITH TOMOSYNTHESIS HISTORY: Routine screening. IMAGE COMPARISON: Extending to 2013. TECHNIQUE: Low dose full field digital breast tomosynthesis imaging was performed with 2D and 3D acquisitions consisting of bilateral CC and MLO views. FINDINGS: The breasts are predominantly adipose tissue. The fibroglandular pattern appears stable. There is no mass, worrisome microcalcifications, or architectural distortion to suggest development of malignancy. us Tony Hanson MD IMG MAMMOGRAPHY ORDERA BLES Final Result from Last 3 Months or Most Recently Relevant to Health Maintenance Insurance Care Teams Test Data Developer Relationship Specialty Start Date End Date Tony Hnason MD [facility] [address] [facility] [address] [place] [address] PCP - General Family Medicine 02/23/24
--- OUTSIDE RECORDS SUMMARY | 2025-01-17 08:46 | XMS_ITS | Patient Health Record ---
Author Organization [facility] Address [address] [place] [id number] Care Team Providers Care Print Cutter Name Role Phone Desire Sharif Primary Care Provider [phone] Cassy Santizo Unavailable [phone] Rosalinda Jacobs Unavailable [phone] Allergies Allergen (clinical drug ingredient) Drug/Non Drug Allergy documented on EMR Reaction Allergy Type Onset Date Status nitrofurantoin, macrocrystals / nitrofurantoin, monohydrate Macrobid Unknown Drug Allergy Active chlordiazepoxide chlordiazePOXIDE Unknown Drug Allergy Active Penicillin Unknown Drug Allergy Active Results Component Value Reference Range Notes Covid test (in house) Reviewed date:06/17/2024 12:03:35 PM Interpretation:neg Performing Lab: Notes/Report: neg Result: neg TEN-Upper Respiratory PCR Reviewed date:06/20/2024 08:48:52 AM Interpretation:Abnormal Performing Lab: Notes/Report: Abnormal P-TSH reflex to FT4 Reviewed date:06/22/2024 08:52:13 AM Interpretation:Normal Performing Lab: Notes/Report: CLIA: [id number] John Santo MD, Steeler [address] [place] [address] [place] [place] [address] Test performed by [email or web address] TSH reflex to FT4 1.86 0.43-5.25 mU/L P-CPK Reviewed date:06/22/2024 08:52:13 AM Interpretation:Normal Performing Lab: Notes/Report: Test performed by [email or web address] [address] [place] [address] [facility] [place] [address] John Santo MD, Steeler CLIA: [id number] Creatine Kinase 58 20-180 U/L P-Comprehensive Metabolic Pa bryanna (CMP) Reviewed date:06/22/2024 08:52:13 AM Interpretation:gluc 122, Cr 1.05, gfr 58 Performing Lab: Notes/Report: Test performed by [facility], [address] , [address], [place] [address] John Santo MD, Steeler CLIA: [id number] Sodium 143 135-145 mmol/L Potassium 4.2 3.5-5.3 [...] 0.8 <0.2-1.2 mg/dL A/G Ratio 1.5 1.1-2.5 CBC Fingerstick (in house) Reviewed date:06/17/2024 12:03:21 [...] - 38 plat 141 100 - 400 Influenza Screen (in house) Reviewed date:06/17/2024 12:03:08 PM Interpretation:neg Performing Lab: Notes/Report: neg results neg Medications Medication SIG (Take, Route, Frequency, Duration) Notes Start Date End Date Status Diflucan 150 MG 1 tablet Orally johnathan y; Duration: 3 days 01/10/2025 Active Lisinopril 40 MG 1 tablet Orally Once a day; Duration: 30 days Active Levalbuterol HCl 1.25 MG/3ML 3 ml as needed Inhalation every 6 hours prn 06/10/2024 Active Nystatin 509457 UNIT/GM 1 application Ex ternally Twice a day; Duration: 30 days 01/09/2025 Active Immunizations Vaccine Route Administration Date Status Comme nts COVID 19 Pfizer Unknown 06/02/2020 Administered COVID 19 Pfizer Unknown 03/09/2021 Administered tuberculin (ppd) ID Intradermal 05/04/2006 Administered Problems Problem Type SNOMED Code ICD Code Onset Dates Problem Status W/U Status Risk Notes Problem Insomnia (163068180) Insomnia (G47.00) Active confirmed Problem Hypertension (10226077) HTN (hypertension) (I10) Active confirmed Problem Essential hypertension (76632781) Essential hypertension (I10) Active confirmed Problem Mixed anxiety and depressive disorder (834183224) Anxiety and depression (F41.8) Active confirmed Problem Arthritis (7901064) Arthritis (M19.90) Active confirmed Problem Thyroid disorder screening (165665572) Screening for thyroid disorder (Z13.29) Active confirmed Problem Sarcoidosis (95052596) Sarcoidosis (D86.9) Active confirmed Problem Sarcoidosis of lung (17442589) Sarcoidosis of lung (D86.0) Active confirmed Problem Osteoarthritis of hip (116993849) Osteoarthritis of hip, unspecified (M16.9) Active confirmed Problem Hyperlipidemia (53696337) Hyperlipidemia, unspecified (E78.5) Active confirmed Problem Neck pain (23570935) Neck pain (M54.2) Active confirmed Problem Osteoarthritis of knee (416618005) Primary osteoarthritis of left knee (M17.12) Active confirmed Problem Disorder of female genital tract (871566629) Pelvic pressure in female (N94.89) Active confirmed Problem Plain X-ray of chest abnormal (finding) (9504360972) Abnormal CXR (R93.89) Active confirmed Vital Signs Heart Rate 67 /min 01/09/2025 Blood pressure diastolic 80 mm Hg 01/09/2025 Height 72 in 01/09/2025 Blood pressure systolic 146 mm Hg 01/09/2025 Weight 231.6 lbs 01/09/2025 BMI 31.41 kg/m2 01/09/2025 Encounters Encounter Location Date Provider Diagnosis [facility] [address] [place], [place] [id number] 06/17/2024 Rosalinda Jacobs Acute URI J06.9 ; Bronchitis J40 and Body aches R52 [facility] [address] [place], [place] [id number] 01/09/2025 Cassy Santizo Alopecia L65.9 ; Fungal infection B49 and HTN (hypertension) I10 [facility] [address] [place], [place] [id number] 01/17/2025 Cassy Santizo HTN (hypertension) I 10 ; Screening for thyroid disorder Z13.29 ; Hyperlipidemia, unspecified E78.5 and Near syncope R55 [facility] [address] [place], [place] [id number] 01/25/2024 Cassy Santizo Neck pain M54.2 [facility] [address] [place], [place] [id number] 01/28/2024 Cassy Santizo [facility] [address] [place], [place] [id number] 06/06/2024 Cassy Santizo [facility] [address] [place] [id number] 06/07/2024 Desire Sharif [facility] [address] [place], [place] [id number] 06/10/2024 Cassy Santizo [facility] [address] [place] [id number] 06/20/2024 Cassy Santizo [facility] [address] [place] [id number] 06/22/2024 Rosalinda Jacobs [facility] [address] [place] [id number] 06/27/2024 Cassy Santizo [facility] [address] [place] [id number] 07/15/2024 Desire Sharif HTN (hypertension) I 10 [facility] [address] [place], [place] [id number] 07/18/2024 Desire Sharif [facility] [address] [place], [place] [id number] 12/14/2024 Rosalinda Jacobs HTN (hypertension) I 10 [facility] [address] [place] [id number] 01/10/2025 Desire Sharif Near syncope R55 [facility] [address] [place] [id number] 01/10/2025 Cassy Santizo Assessments Encounter Date Diagnosis (ICD Code) Assessment Notes Treatment Notes Treatment Clinical Notes Section Notes 01/25/2024 Neck pain (ICD-10 - M54.2) 06/17/2024 Bronchitis (ICD-10 - J40) Pt prefers xopenex to albuterol. Albuterol was cancelled and xopenex was sent to the pharmacy. 06/17/2024 Acute URI (ICD-10 - J06.9) She has cough medication at home. She has finished the zpack and steroids without improvement. Will get a TEN respiratory panel. 07/15/2024 HTN (hypertension) (ICD-10 - I10) 12/14/2024 HTN (hypertension) (ICD-10 - I10) 01/09/2025 Alopecia (ICD-10 - L65.9) discussed hair/scalp care; she will try Nizoral shampoo with direction to leave on 3-5 minutes; encouraged her to wash hair infrequently and to massage scalp; she does use blow dryr but no curling irons; she colors her own hair and has changed products 01/09/2025 Fungal infection (ICD-10 - B49) will use this in left axilla 01/10/2025 Near syncope (ICD-10 - R55) 01/17/2025 HTN (hypertension) (ICD-10 - I10) 01/09/2025 HTN (hypertension) (ICD-10 - I10) 06/17/2024 Body aches (ICD-10 - R52) 01/17/2025 Screening for thyroid disorder (ICD-10 - Z13.29) 01/17/2025 Hyperlipidemia, unspecified (ICD-10 - E78.5) 01/17/2025 Near syncope (ICD-10 - R55) Plan Of Treatment Pending Test Test Name Order Date MRI : Spine, Cervical, without contrast 10/12/2023 EKG 01/10/2025 CBC Venipuncture (in house) 01/17/2025 lipid profile 08/28/2020 Event Recorder 01/10/2025 P-Vitamin B12 01/17/2025 P-Comprehensive Metabolic Panel (CMP) P-Lipid Panel 01/17/2025 P-Magnesium 01/17/2025 P-TSH 01/17/2025 P-Uric Acid 01/17/2025 P-Vitamin D 25-Hydroxy 01/17/2025 Next Appt Details Provider Name:Cassy Ambar higgins, 01/17/2025 08:05:00 AM, [address] [facility], [place], [place], [id number], Insurance Providers Payer Name Payer Address Payer Phone Subscriber Number Group Number Insured Name Patient Relationship to Insured Coverage Start Date Coverage End Date [employer] [address] [place] [address] [id number] KATHERYN PALMER Self - patient is the insured Medications Administered Medication Instructions Date of Administration Dosage Notes depo medrol 80 mg 04/29/2017 1 mL Medical (General) History Medical History History ICD Code hypertension sarcoidosis prolapse of bladder into vaginal vault Surgical History Surgery Date(Month/Year) total hysterectomy cholecystectomy bladder tacked colon partial removal heart cath @ [facility] anterior and posterior repai r-colporraphy to fix prolapse of organs into the genital tract 11/2015 Enterocele - [place] 09/01/16 Bladder Tact and Mesh placed 4th Time 2016 Total Hip Replacement at [facility]. [facility] [place] 09/21/2017 Hospitalization History Reason Date(Month/Year) for above surgery 11/2015
--- NOTE | 2025-01-17 09:02 | ECG_ITS ---
APPROVED REPORT Exam: Resting ECG HR:54 bpm ECG Measurements Heart Rate 54 AXES DC 171 P 67 QRSd 153 QRS -74 QT 468 T 97 QTc 454 Conclusion SINUS BRADYCARDIA RIGHT BUNDLE BRANCH BLOCK [120+ ms QRS DURATION, UPRIGHT V1, 40+ ms S IN I/aVL/V4/V5/V6] LEFT ANTERIOR FASCICULAR BLOCK [QRS AXIS <= -45, QR IN I, RS IN II] ABNORMAL ECG UNCONFIRMED REPORT Electronically signed by : Willy Hess MD 01/17/2025 12:50:11
== END 2025-01-17 23:59 | disposition home or self-care (01) ==
LOC: RT 08:42
PROVIDERS: PCP Family Medicine; Visit Provider Family Medicine
DX: I45.2 Bifascicular block (principal); R00.1 Bradycardia, unspecified; R94.31 Abnormal electrocardiogram [ECG] [EKG]; R55 Syncope and collapse
CPT/HCPCS: 93005

== ENCOUNTER 2025-02-14 16:32 | Outpatient (CLI) | payer BC, SELFPAY ==
--- OUTSIDE RECORDS SUMMARY | 2025-02-14 16:36 | XMS_ITS | Data Portability ---
Author Organization [facility] Address [address] [place] [address] Assessment No assessment recorded. Plan of Treatment Reminders Order Date Submit Date Provider Last Modified By Organization Details Last Modified Time Details Appointments None recorded. Lab None recorded. Referral None recorded. Procedures None recorded. Surgeries None recorded. Imaging None recorded. Medication Orders clotrimaz ole-betam ethasone 1 %-0.05 % topical cream [address], [address], 15:59:13 Patient TargetsNo targets recorded. Patient Instructions Encounter Date Encounter Id Patient Instructions Last Modified By Organization Details Last Modified Time 10/02/2023 [id number] body mass index: care instructions [email or web address] Not available 10/02/2023 15:59:11 learning about healthy weight [email or web address] Not available 10/02/2023 15:59:11 Reason for Referral None Reported. Results Created Date Observation Date Name Description Value Unit Range Abnormal Flag Note LastModifiedBy Organization Detail LastModifiedTime 03/31/20 24 01/08/2024 MRI, cervi comfort spine , w/o contr ast No observ ation record ed. [email or web address] [address], [place], [address], 04/06/2024 16:00:40 03/31/20 24 01/07/2024 MRI, cervi comfort spine , w/o contr ast No observ ation record ed. [email or web address] (Scheduling) [address], [place], [address], 04/01/2024 08:44:31 Result Notes None recorded. Problems Name Problem SNOMED Code Status Onset Date Resolution Date Notes Provider Name and Address Organization Details Recorded Time Essential hypertension 01762976 Active 2023 MORIAH Irene - [facility] 15:21:40 Asthma 051520466 Active 2023 [facility]H [facility] 15:21:47 Sarcoidosis 08655357 Active 2023 MORIAH Irene - [facility] 15:21:56 Bradycardia 08993688 Active 2023 MORIAH Irene - [facility] 15:22:23 Coronary arterioscleros is 51600271 Active 2023 MORIAH Irene - [facility] 15:29:09 Problem Notes None recorded. Procedures Surgical History Date Name Laterality Status Provider Name and Address Organization Details Recorded Time procedure on urinary bladder completed Lois MAJOR - [facility] 10/02/19 15:32:37 Knee Surgery completed Lois [facility]JOR - [facility] 10/02/2023 15:33:04 Hip Replacement completed Lois MAJOR - [facility] 10/02/2023 15:33:15 Cholecystectomy, laparoscopic completed Lois MAJOR - [facility] 10/02/2023 15:33:30 Hysterectomy completed Lois MAJOR - [facility] 10/02/2023 15:33:59 Imaging Results None recorded. Procedure Notes None recorded. Medical Equipment None Reported. Allergies No known drug allergies Medications Name Sig Start Date Stop Date Status Note LastModified by Organization Details LastModified Time lisinopril 20 mg tablet TAKE 1 TABLET BY MOUTH TWICE A DAY active Not Available Not Available No t Available clotrimazole -betamethaso ne 1 %-0.05 % topical cream APPLY TO THE AFFECTED AND SURROUNDING AREAS OF SKIN BY TOPICAL ROUTE TWO (2) TIMES PER DAY IN THE MORNING AND EVENING FOR TWO (2) WEEKS active Not Available Not Available No t Available nystatin-tri amcinolone 100,000 unit/g-0.1 % topical cream APPLY TOPICALLY TO THE AFFECTED AREA(S) TWICE DAILY active Not Available Not Available Not Available methylpredni solone 4 mg tablets in a dose pack TAKE ACCORDING TO PACKAGE INSTRUCTION S --TAKE WITH FOOD-- -- FINISH ALL MEDICINE -- active Not Available Not Available Not Available levalbuterol HFA 45 mcg/actuatio n aerosol inhaler INHALE 2 PUFFS BY MOUTH EVERY 6 HOURS NEEDED FOR WHEEZING OR SHORTNESS OF BREATH (COUGH) active Not Available Not Available No t Available Vitals Date Recorded Body weight Body mass index (BMI) Body height Body temperature Heart rate Respiratory rate Oxygen saturation Oxygen saturation in Arterial blood by Pulse oximetry Pain severity - 0-10 verbal numeric rating [Score] - Reported Systolic And Diastolic Provider Name and Address Organization Details Last Updated DateTime 4 519996. 84 g 30.5 kg/m2 185.42 cm 97.7 [degF] 68 /min 18 /min 97 % 97 % 8 134/80 mm[Hg] Lois Little [place] - [facility] 15:16:12 Social History Question Answer Notes LastModified by Samatoaizat ion Details LastModified Time Tobacco Smoking Status Former Smoker Lois Little [facility] [place] - [facility] 10/02/2023 15:30:02 Do You Have An Advance Directive? No Information not available 10/02/2023 Are You Blind Or Do You Have Difficulty Seeing? No Information not available 10/02/2023 What Is Your Level Of Caffeine Consumption? Moderate Information not available 10/02/2023 In The 14 Days Before Symptom Onset, Have You Had Close Contact With A Laboratory-confir med COVID-19 While That Case Was Ill? No Information not available 10/02/2023 In The 14 Days Before Symptom Onset, Have You Had Close Contact With A Person Who Is Under Investigation For COVID-19 While That Person Was Ill? No Information not available 10/02/2023 Have You Been To An Area Known To Be High Risk For COVID-19? No Information not available 10/02/2023 Are You Deaf Or Do You Have Serious Difficulty Hearing? No Information not available 10/02/2023 What Type Of Diet Are You Following? REGULAR Information not available 10/02/2023 Have You Processed Blood Or Body Fluids From An Ebola Virus Disease Patient Without Appropriate PPE? No Information not available 10/02/2023 Do You Reside In Or Have You Traveled To An Area Where Ebola Virus Transmission Is Active? No Information not available 10/02/2023 What Is The Highest Grade Or Level Of School You Have Completed Or The Highest Degree You Have Received? [id number] Information not available 10/02/2023 Have There Been Any Changes To Your Family Or Social Situation? No Information no t available 10/02/2023 What Is The Fluoride Status Of Your Home? Fluoridated Information not available 10/02/2023 When Did You Quit Smoking? 16+yearssincelast cigarette Information not available 10/02/2023 Have You Recently Or Are You Planning To Travel To An Area With Zika Virus? No Information not available 10/02/2023 What Was The Date Of Your Most Recent Tobacco Screening? 10/02/2023 Information not available 10/02/2023 How Many Children Do You Have? 1 Information not available 10/02/2023 What Is Your Current Pack Years? 30ormorepackyears Information no t available 10/02/2023 Do You Use Protection During Sex? Always Information not available 10/02/2023 Do You Use Protection Against STDs? No Information not available 10/02/2023 What Is Your Relationship Status? Information not available 10/02/2023 Are You Sexually Active? Yes Information not available 10/02/2023 Do You Have Smoke And Carbon Monoxide Detectors In Your Home? Yes Information not available 10/02/2023 At What Age Did You Start Smoking Tobacco? 13 Information not available 10/02/2023 Are You Passively Exposed To Smoke? No Information no t available 10/02/2023 How Much Tobacco Do You Smoke? No Information not available 10/02/2023 Has Tobacco Cessation Counseling Been Provided? No Information not available 10/02/2023 How Many Years Have You Smoked Tobacco? 32 Information not available 10/02/2023 Do You Have Difficulty Walking Or Climbing Stairs? No Information not available 10/02/2023 What Contraceptive Method Was Reported At Start Of This Visit? Female Sterilization Information not available 10/02/2023 What Contraceptive Method Was Reported At End Of This Visit? Female Sterilization Information not available 10/02/2023 Do You Want To Talk About Contraception Or Prevention During Your Visit Today? No - I Am Already Using Contraception Information not available 10/02/2023 Do You Have Any Future Plans To Get ? No, I Don't Want To Become Information not available 10/02/2023 Sex: Female Functional Status Question Answer Note LastModified by Organizat ion Details LastModified Time Do you use any illicit or recreational drugs? No Information not available 10/02/2023 Do you or have you ever used any other forms of tobacco or nicotine? No Information not available 10/02/2023 What is your level of alcohol consumption? None Information not available 10/02/2023 Are you currently employed? Yes Information not available 10/02/2023 Do you have transportation difficulties? No Information not available 10/02/2023 What is your status? Not Information no t available 10/02/2023 Are you able to walk independently without assistance or assistive devices? YESWOREST Information not available 10/02/2023 Do you have difficulty doing errands alone? No Information not available 10/02/2023 Are you able to care for yourself independently? 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 No Information not available 10/02/2023 What is your exercise level? Occasional Information not available 10/02/2023 Mental Status Question Answer Note LastModified by Organizat ion Details LastModified Time Do you feel stressed (tense, restless, nervous, or anxious, or unable to sleep at night)? [id number] Information not available 10/02/2023 Do you have difficulty concentrating, remembering or making decisions? No Information no t available 10/02/2023 Family History Relationship Description Onset Age of this Age Resolved Age Notes LastModified by Organization Details LastModified Time Mother Cerebrovascu lar accident Not available 15:27:38 Mother Neoplasm of urinary bladder Not available 2023 15:27:48 Mother Diabetes mellitus Not available 2023 15:28:42 Father Myocardial infarction Not available 10/01 15:27:57 Father Coronary arterioscler osis Not available 2023 15:28:06 Brother Coronary arterioscler osis Not available 2023 15:28:23 Sister Diabetes mellitus Not available 2023 15:28:42 Medical History No medical history recorded. Gynecological HistoryNo gynecological history recorded. Obstetrics History GPAL:G 1 P 0 0 0 1 Type Value Living 1 Total 1 Immunizations Vaccine Type Date Status Note Provider Nam e and Address Organization Details Recorded Time COVID-19, mRNA, LNP-S, PF, 30 mcg/0.3 mL dose 05/10/2020 completed Lois Little [place], [place] - [facility] 10/02/2023 15:20:39 COVID-19, mRNA, LNP-S, PF, 30 mcg/0.3 mL dose 06/02/2020 completed Lois Little null, [place] - [facility] 10/02/2023 15:20:39 COVID-19, mRNA, LNP-S, PF, 30 mcg/0.3 mL dose 03/09/2021 completed Lois Little null, [place] - [facility] 10/02/2023 15:20:39 Past Encounters Encounter ID Performer Location Encounter Start Date Encounter Closed Date Diagnosis/Indication Diagnosis SNOMED-CT Code Diagnosis ICD10 Code Diagnosis IMO Codes Diagnosis Note [id number] Scott Najera MD [address] [place] [address] 10/02/2023 14:42:56 10/02/2023 15:57:37 Asthma 653638033 J45.909 Bradycardia 41958522 R00 .1 Essential hypertension 88356305 I10 Sarcoidosis 15135404 D86 .9 Coronary arteriosclerosis 53039121 I25.10 Candidiasis of skin 4988 3006 B37.2 Body mass index 30+ - obesity 608449663 Z68.30 Health Concerns Section Related Observation LastModified by Organization Detai ls LastModified Time None Recorded Concern Status LastModified by Organization Details LastModified Time None Recorded Advance Directives Directive N: Payers Insurance Date Sequence Insurance Name Policy Number Policy Cain Covered Member ID Cain Member ID Guarantor Name 10/02/2023 1 [place] [id number] Susie Che [id number] Susei Che Notes Date Note Type Note Provider Name and Address Organization Details Recorded Time 10/02/2023 text/html C/O redness and burning L axilla 1 year. Otherwise feels well. Scott Najera MD [facility] [address] [place], [address], [place] - [facility] 10/02/2023 15:59:52 OBGyn Episode No OBEpisode recorded.
--- OUTSIDE RECORDS SUMMARY | 2025-02-14 16:36 | XMS_ITS | Clinical Summary ---
Author Organization [facility] Address [address] [place] [address] Care Team Providers Care Block Breaker Name Role Phone Gerardo Sharif MD Primary Care Provider [phone] Allergies Active Allergy Reactions Criticality Noted Date [...] 12/07/2005 UKY-Zoster Vaccines (1 of 2) 12/07/2005 [id number] Vaccine ( - 2024- season) 2024 03/09/2021, [...] complete this topic Insurance ANTHEM Care Teams Block Breaker Relationship Specialty Start Date End Date Gerardo Sharif MD [address] [place] [address] PCP - General 08/31/20
--- OUTSIDE RECORDS SUMMARY | 2025-02-14 16:37 | XMS_ITS | Data Portability ---
Author Organization [facility], [facility] CLOSED Address [address] [address] [address] [place] [address] Care Team Providers Care Surfboard Maker Name Role Phone ASHLEY KINNEY Urologist Assessment Encounter Date Assessment Date Assessment LastModified by Organization Details LastModified Time 08/05/2018 08/05/2018 pt was seen by the Dr manley Not available 08/05/2018 15:22:49 05/24/2019 05/24/2019 Follow up yearly [email or web address] Not available 05/24/2019 16:31:53 10/28/2024 10/28/2024 Follow up yearly [email or web address] Not available 10/27/2024 13:51:39 Plan of Treatment Reminders Order Date Submit Date Provider Last Modified By Organization Details Last Modified Time Details Appointments DERM NEW 2025 02:50P M DR. OWEN Not available Not available Not available DERM VISIT 2025 10:30A M JUAN PABLO HDEZ CHILD ATTENDANT Not available Not available Not available Lab surgical pathology study 2019 020 [facility], [address] [place] [address], [phone], 05/26/2019 12:37:17 Referral None recorded. Procedures None recorded. Surgeries None recorded. Imaging None recorded. Medication Orders minoxidil 2.5 mg tablet 2024 025 [email or web address] 9 [facility], [address] [place] [address] [address] [facility], [place], [place], [id number], 10/28/2024 14:29:52 Patient TargetsNo targets recorded. Patient Instructions Encounter Date Encounter Id Patient Instructions Last Modified By Organization Details Last Modified Time 05/24/2019 [id number] Skin Cyst: Care Instructions [email or web address] Not available 05/24/2019 17:01:51 Ganglion Cyst-LC [email or web address] Not availabl e 05/24/2019 17:01:51 Education: We discussed the potential diagnostic options, options for further evaluation and treatments, and the risks and benefits of each. [email or web address] Not available 05/24/2019 16:33:33 06/02/2019 [id number] Skin Cyst: Care Instructions [email or web address] Not available 06/02/2019 09:19:15 Risks/Benefits/O p tions/Side Effects of diagnosis and treatment discussed. UV protection and signs of skin cancer discussed [email or web address] Not available 06/02/2019 09:11:42 10/28/2024 [id number] Education: We discussed the potential diagnostic options, options for further evaluation and treatments, and the risks and benefits of each. [email or web address] Not available 10/27/2024 13:56:44 Reason for Referral None Reported. Results Created Date Observation Date Name Description Value Unit Range Abnormal Flag Note LastModifiedBy Organization Detail LastModifiedTime 08/06/1908/05/2018 urina lysis , dipst ick, auto Unknown Analyte Yellow Not Available [facility] [address] [place], [address], 08/05/2018 14:42:50 08/06/19 19 08/05/2018 urina lysis , dipst ick, auto Unknown Analyte Clear Not Available [facility] [address] [place], [address], 08/05/2018 14:42:50 08/06/19 19 08/05/2018 urina lysis , dipst ick, auto Unknown Analyte 1.020 Not Available [facility] [address] [place], [address], 08/05/2018 14:42:50 08/06/19 19 08/05/2018 urina lysis , dipst ick, auto Unknown Analyte 5.0 Not Available [facility] [address] [place], [address], 08/05/2018 14:42:50 08/06/19 19 08/05/2018 urina lysis , dipst ick, auto Unknown Analyte Negati ve Not Available [facility] [address] [place] [address], [phone], 08/05/2018 14:42:50 08/06/19 19 08/05/2018 urina lysis , dipst ick, auto Unknown Analyte Negati ve Not Available [facility] [address] [place] [address], [phone], 08/05/2018 14:42:50 08/06/19 19 08/05/2018 urina lysis , dipst ick, auto Unknown Analyte Negtiv e Not Available [facility] [address], [address], 08/05/2018 14:42:50 08/06/19 19 08/05/2018 urina lysis , dipst ick, auto Unknown Analyte Normal Not Available [facility] [address] [place] [address], [phone], 08/05/2018 14:42:50 08/06/19 19 08/05/2018 urina lysis , dipst ick, auto Unknown Analyte Negati ve Not Available [facility] [address] [place] [address], [address], 08/05/2018 14:42:50 08/06/19 19 08/05/2018 urina lysis , dipst ick, auto Unknown Analyte Normal Not Available [facility] [address] [place] [address], [phone], 08/05/2018 14:42:50 08/06/19 19 08/05/2018 urina lysis , dipst ick, auto Unknown Analyte Negati ve Not Available [facility] [address], [address], 08/05/2018 14:42:50 08/06/19 19 08/05/2018 urina lysis , dipst ick, auto Unknown Analyte Trace Not Available [facility] [address] [place], [address], 08/05/2018 14:42:50 08/06/19 19 08/05/2018 urina lysis , dipst ick, auto Unknown Analyte Clean Catch Not Available [facility] [address] [place], [address], 08/05/2018 14:42:50 08/06/19 19 08/05/2018 urina lysis , dipst ick, auto Unknown Analyte Automa marjorie Not Available [facility] [address] [place], [address], 08/05/2018 14:42:50 05/24/19 20 05/24/[facility] SEE BELOW Depar tment of Patho logy Surgi [facility] Patho logy Repor t NAME: SAEID ALARCON PATH. :[id number] Copy to: Diagn osis: Left lower media l butto ck: Epide rmoid inclu jose raul cyst. SOURC E OF SPECI MEN: SKIN BIOPS Y, LEFT LOWER MEDIA L BUTTO CK CLINI MARE INFOR MATIO N: D48.5 Gross Descr iptio n: Recei monika in forma arlene label ed with the patie nt's name and desig nated left lower media l butto ck is a 0.5 cm punch biops y of skin excis ed to a depth of 0.5 cm. The skin surfa ce is sligh tly rough ened. The robles ns are inked blue. The speci men is bisec marjorie and entir shay submi tted in one casse tte. NURIS 05/25 02:34 PM Micro scopi c Descr iptio n: Secti ons demon strat e a cysti c invag inati on of the epide rmis into the dermi s lined by strat ified squam ous epith elium with a prese rved granu lar cell layer and abund ant kerat in produ ction . Kerat in plugg ing is seen withi n the openi ng to the epide rmal surfa ce. No forei gn body or forei gn body giant cell react ion is seen. GIOVANA GRIGGS M.D. Shwetha d Out Date: 05/26 12:36 Page 1 of 1 Not Available [facility] [address] [place] [address], [phone], 05/26/2019 12:37:17 Result Notes None recorded. Problems No Known Problems Procedures Surgical History Date Name Laterality Status Provider Name and Address Organization Details Recorded Time 10/29/19 25 Destruction Premalignant Lesion(s) completed Daria Farmer [facility] 10/28/2024 10:35:45 10/02/19 22 total knee replacement completed Jacqueline Merida [facility] 10/16/2023 11:02:24 06/02/19 20 Suture/Staple removal completed Siena Sanders [facility] 06/02/2019 09:11:22 05/24/19 20 Excision BN lesion; trunk, arms or legs completed LYNDA RUELAS MD [address] [place] [address], [address], [facility] 05/26/2019 22:00:37 08/06/19 19 Urodynamics completed ASHLEY KINNEY MD [address] [place] [address], [address], [facility] 08/05/2018 14:51:06 05/19/19 19 Cystoscopy - female completed ASHLEY KINNEY MD [address] [place] [address], [address], [facility] 05/19/2018 14:28:53 05/04/19 19 Post Void Residual; Ultrasound completed Kathya Roland [facility] 05/04/2018 11:22:25 04/26/19 19 Airway Resistance completed Rula Vinson [facility] 04/26/2018 15:51:52 04/26/19 19 [facility] 15:51:46 04/26/19 19 Lung Volumes, Plethysmography completed [facility] 04/26/2018 15:51:49 04/26/19 19 [facility] 04/26[facility] 15:52:09 04/26/19 19 Spirometry with Bronchodilator completed [facility] 04/26/2018 15:49:39 09/19/19 18 Joint Replacement completed [facility] 04/26/2018 15:44:11 04/20/18 89 [facility] 11:16:38 Imaging Results None recorded. Procedure Notes None recorded. Medical Equipment None Reported. Allergies Allergen ID Allergen Name Allergen Category Reaction Reaction Severity Criticality Documentation Date Start Date Code Code System Note Provider Name and Address Organization Details Recorded Time 268033 Librium medicatio n Not available Not available Not available 03/13/20162013 3804 RxNorm Comme nt: Creat ed By: Timmy amador Date: 2013 11:57 :56 AM; Not Available [facility] 6 11:19:29 843454 Product containin g penicilli n (product) medicatio n Not available Not available Not available 04/26/2018 24748 8001 SNOMED [facility] 9 15:08:13 Medications Name Sig Start Date Stop Date Status Note LastModified by Organization Details LastModified Time cyclobenz aprine 10 mg tablet 10/15 completed Not Available Not Available Not Available trazodone 50 mg tablet 08/05 completed Not Available Not Available Not Available atorvasta tin 10 mg tablet TAKE 1 TABLET BY MOUTH EVERY DAY AT NIGHT 10/28 completed Not Available Not Available Not Available azithromy dayanna 250 mg tablet TAKE 2 TABLETS BY MOUTH THE 1ST DAY, THEN TAKE 1 TABLET BY MOUTH EVERY DAY FOR 4 DAYS 10/28 completed Not Available Not Available Not Available ibuprofen 800 mg tablet Every six hours 04/26 completed Duration : 30 days;Nader quency: q6h;Medi cation Descript ion: ibuprofe n; Dosage:1 ; Route:or al; refills: 0; Quantity :60 tablet Not Available Not Available Not Available Lasix 40 mg tablet Daily 04/26 completed Duration : 30 days;Nader quency: daily;Al t Frequenc y: as direct.; Medicati on Descript ion: furosemi de; Dosage:1 ; Route:or al; refills: 1; Quantity :14 tablet Not Available Not Available Not Available lisinopri l 20 mg tablet TAKE ONE TABLET BY MOUTH TWICE DAILY 10/28 completed Not Available Not Available Not Available chlorthal idone 25 mg tablet TAKE 1/2 TABLET BY MOUTH EVERY DAY 10/28 completed Not Available Not Available Not Available sulfameth oxazole 800 mg-trimet hoprim 160 mg tablet Take 1 tablet every 12 hours by oral route for 7 days. 08/05 completed Not Available Not Available Not Available minoxidil 2.5 mg tablet TAKE ONE TABLET BY MOUTH DAILY DIRECTED active Not Available Not Available No t Available clotrimaz ole-betam ethasone 1 %-0.05 % topical cream APPLY TO THE AFFECTED AND SURROUND ING AREAS OF SKIN BY TOPICAL ROUTE TWO (2) TIMES PER DAY IN THE MORNING AND EVENING FOR TWO (2) WEEKS 10/28 completed Not Available Not Available Not Available nystatin- triamcino lone 100,000 unit/g-0. 1 % topical cream APPLY TOPICALL Y TO THE AFFECTED AREA(S) TWICE DAILY 10/28 completed Not Available Not Available Not Available gabapenti n 300 mg capsule TAKE 1 CAPSULE BY MOUTH THREE TIMES A DAY 10/28 completed Not Available Not Available Not Available levalbute rol 1.25 mg/3 mL solution for nebulizat ion INHALE THE CONTENTS OF 1 VIAL VIA NEBULIZE R EVERY 6 HOURS NEEDED active Not Available Not Available No t Available cefuroxim e axetil 500 mg tablet TAKE ONE TABLET BY MOUTH EVERY TWELVE HOURS FOR 7 DAYS -- FINISH ALL MEDICINE -- 10/28 completed Not Available Not Available Not Available methylpre dnisolone 4 mg tablets in a dose pack TAKE 6 TABS ON DAY 1, TAKE 5 TABS ON DAY 2, TAKE 4 TABS ON DAY 3, TAKE 3 TABS ON DAY 4, TAKE 2 TABS ON DAY 5, TAKE 1 ON DAY 6. TAKE WITH FOOD. 10/28 completed Not Available Not Available Not Available albuterol sulfate HFA 90 mcg/actua tion aerosol inhaler INHALE 2 PUFFS FOUR TIMES A DAY AND EVERY 4 HOURS NEEDED. active Not Available Not Available No t Available brompheni ramine-ps eudoephed rine-DM 2 mg-30 mg-10 mg/5 mL oral syrup TAKE 5ML BY MOUTH FOUR TIMES DAILY 10/28 completed Not Available Not Available Not Available lisinopri l 40 mg tablet TAKE 1/2 TABLET BY MOUTH TWICE A DAY active Not Available Not Available No t Available diazepam 5 mg tablet PLEASE SEE ATTACHED FOR DETAILED DIRECTIO NS 10/28 completed Not Available Not Available Not Available Estrace 0.01% (0.1 mg/gram) vaginal cream As Directed 04/26 completed Instruct ions: 1/4 applicat or once a week;Nader quency: as direct.; Medicati on Descript ion: estradio l topical; Dosage:a s directed ; Route:va ginal; refills: 1; Quantity :1 cream Not Available Not Available Not Available levalbute rol HFA 45 mcg/actua tion aerosol inhaler INHALE 1 PUFF BY MOUTH EVERY 6 HOURS NEEDED active Not Available Not Available No t Available Aspir-81 prn 10/28 completed Not Available Not Available Not Available Suprep Bowel Prep Kit 17.5 gram-3.13 gram-1.6 gram oral solution 08/05 completed Not Available Not Available Not Available Myrbetriq 50 mg tablet,ex tended release 10/15 completed Not Available Not Available Not Available Breo Ellipta 100 mcg-25 mcg/dose powder for inhalatio n Inhale 1 puff as needed by inhalati on route. 10/28 completed Not Available Not Available Not Available Trelegy Ellipta 200 mcg-62.5 mcg-25 mcg powder for inhalatio n INHALE 1 PUFF BY MOUTH VIA INHALER DAILY. RINSE MOUTH AFTER USE. 10/28 completed Not Available Not Available Not Available Vitals Date Recorded Body height Body mass index (BMI) Body weight Provider Name and Address Organization Details Last Updated DateTime 08/05/2018 182.88 cm 30.8 kg/m2 526224.47 g Kathya Roland [facility] 08/05/2018 14:40:39 Social History Question Answer Notes LastModified by Organizat ion Details LastModified Time Tobacco Smoking Status Former Smoker Rula Vinson alaina, [facility] 04/26/2018 15:14:10 When Did You Quit Smoking? 16+yearssince lastcigarette Information not available 04/26/2018 Exposure To Fumes Yes [email or web address] Information not available 04/26/2018 Exposure To Dust Yes [email or web address] Information not available 04/26/2018 Exposure To Smoke Yes [email or web address] Information not available 04/26/2018 Exposure To Other Toxic Chemicals Yes [email or web address] Information not available 04/26/2018 Marital Status Informatio n not available 05/04/2018 What Was The Date Of Your Most Recent Tobacco Screening? 08/05/2018 Information not available 06/07/2019 How Many Years Have You Smoked Tobacco? 33 [email or web address] Information not available 04/26/2018 Sex: Female Functional Status Question Answer Note LastModified by Organization D etails LastModified Time What is your level of alcohol consumption? 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 Family History Relationship Description Onset Age of this Age Resolved Age Notes LastModified by Organization Details LastModified Time Mother Family history of malignant neoplasm BLADDE R [email or web address] Not available 10/28/2024 09:51:29 Mother Diabetes mellitus [email or web address] Not available 2024 09:51:30 Mother Cerebrovascu lar accident [email or web address] Not available 02/2025 09:51:30 Mother Hypertensive disorder [email or web address] Not available 2024 09:51:30 Father Heart disease [email or web address] Not available 2024 09:51:30 Father Hypertensive disorder [email or web address] Not available 2024 09:51:30 Unspecified Relation Hypertensive disorder [email or web address] Not available 2018 11:13:33 Medical History Condition Response Varicose Veins Y Autoimmune disease N Squamous Cell Carcinoma N Eczema N Stroke Y Melanoma N Sarcoidosis Y Acne N Skin Problems N Basal Cell Carcinoma N High Cholesterol Y Skin Cancer N Hypertension Y Other Skin Condition N Gynecological HistoryNo gynecological history recorded. Obstetrics History GPAL:G 0 P 0 0 0 0 Past Encounters Encounter ID Performer Location Encounter Start Date Encounter Closed Date Diagnosis/Indication Diagnosis SNOMED-CT Code Diagnosis ICD10 Code Diagnosis IMO Codes Diagnosis Note [id number] JEANNE SANABRIA MD PULMONARY [address] [facility] [place] [address] 04/26/2018 14:24:10 05/03/2018 07:48:47 Sarcoidosis 81691407 D86.9 Diagnosed by Mediastino scopy 14 years ago. Never treated. Did not make regular follow ups. Atypical chest pain 1025 62191 R07.89 Sounds pleuritic and chronic. If she returns in 1 month, then I will get a CTA and MARIAM. Dyspnea on exertion 6084 5006 R06.09 Likely multifacto rial. Her wheezing and chest tightness combined with her PFTs suggests an obstructiv e airway component. Her PFTs are only partially reversible like COPD, but her sensitivit y to cold air sounds asthmatic. Samples of Breo 100 and Anoro provided. She will try them each and let me know how each worked on follow up. Noncomplia nce with treatment 5740623 Z91.19 Long history of non compliance (refused sleep test, pacemaker, numerous medication s, all previous inhalers). I frankly told her that if she isn't going to try any of our suggestion s, then there is no reason to come in for diagnostic evaluation . She says she will try the inhalers this time. If she complies with that, then I will do a more complete work up. Chronic fa tigue syndrome 46864883 R53.82 Likely needs the sleep testing that was set up for 3 years ago. [id number] ASHLEY KINNEY MD UROLOGY [facility] [address] [place] [address] 05/04/2018 10:37:07 05/04/2018 12:55:03 Bladder muscle dysfunction - overactive 034824352 N32.81 Blood in urine 26983084 R31.9 Difficulty initiating bladder emptying 013707982 R39.11 Urge incon tinence of urine 97658059 N39.41 [id number] ASHLEY KINNEY MD SURGERY SCHEDULE [address] [place] [address] 05/19/2018 11:38:53 05/19/2018 11:42:04 [id number] ASHLEY KINNEY MD UROLOGY [facility] [address] [place] [address] 08/05/2018 12:54:23 08/05/2018 15:04:25 Bladder muscle dysfunction - overactive 648670756 N32.81 [id number] ASHLEY KINNEY MD UROLOGY [facility] [address] [place] [address] 08/05/2018 12:56:06 08/05/2018 15:34:19 [id number] LYNDA RUELAS MD DERMATOLO GY [address] [place] [address] 05/24/2019 15:50:13 05/27/2019 08:38:00 Lentiginosis 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 Raised juan pablo orrheic keratosis 2030999652 26163 L82.1 Reassuranc e and education regarding the disorder and options. Multiple b enign melanocytic nevi 728606498 D22.9 Reassuranc e and education regarding the disorder and options. Ganglion of wrist 623426 009 M67.439 Reassuranc e and education regarding the disorder and options. Would refer to hand surgeon if wanted Epidermoid cyst of skin 104277501 L72.3 Reassuranc e and education regarding the disorder and options. Neoplasm o f uncertain behavior of skin 39514875 D48.5 Left lower medial buttock - 4 mm punch excision [id number] CHANDNI WEISS PA-C [facility]O [facility] [address] [place] [address] 06/02/2019 08:56:49 06/02/2019 13:33:48 Removal of suture 41302177 Z48.02 SUTURE REMOVAL X 2 PER SIENA, NO COMPLICATI ONS HEALED WELL NO SIGNS OF INFECTION NOTED Epidermoid cyst 82498261 6 L72.0 BX PROVEN EIC [id number] JACQUELINE GARCIA MD OPHTHALMO LOGY [address] [address] 10/16/2023 09:37:52 10/16/2023 11:42:14 Sarcoidosis 54539054 D86.9 no ocular involvemen t Posterior vitreous detachment 192077958 H43.819 Discussed vitreous detachment with the patient. I discussed the patient monitoring for increasing flashes/fl oater/wu ge in vision and to call immediatel y for any change in the vision. [id number] SHABBIR HDEZ APRN [facility] [address] [place] [address] 10/28/2024 09:49:50 10/28/2024 11:03:30 Lentiginosis 260781379 L81.4 Benign appearance ; reassuranc e and education providedPa tient was counseled on the risks of chronic sun exposure. Sun protective clothing and daily UV protection with over the counter broad-spec trum SPF 30+ sunscreen on exposed areas recommende d, as well as, regular self-skin exams. Raised juan pablo orrheic keratosis 9735974893 30945 L82.1 Reassuranc e and education regarding the disorder and options. 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 I 78.1 [id number] Benign appearance ; reassuranc e and education provided Loss of hair 881606360 L 65.9 36025 Non scarring - favor Telogen effluviumd iscussed with patient condition is likely stress related; patient has very stressful job working for [employer].Als o reports illness in May of this year - viral and bacteria respirator y infections that were difficult to get overReport s labs in May with PCP - TSH, CMP, CBC, were WNL - PCP wanted her to call back about starting vitamin D and b12 supplement s but patient has not done this yet.Discus sed diagnosis with patient and treatment options including vitamin supplement ation, and oral/topic al minoxidil. Risks/bene fits of each option reviewed.P atient verbalized understand ing and would like to proceed with RX treatment. PLAN:Recom mended OTC hair, skin and nail vitamin with biotin such as Weem brand or Nutrafol.S tart RX - Minoxidil 2.5 mg tablet - take 1 tab po QDrecommen ded course with oral med for minimum 3-6 months to see benefit, may continue for a year if beneficial Recommende d patient follow up with PCP regarding b12 supplement ation; if low on labs, may require IM injections rather than oral supplement .Avoid harsh chemical treatments to hair such as volumizing perms, dyeDo not use excessive heat to style hairMild shampoos /condition er - patient uses Cerave follow up as needed if worsening for further evaluation Actinic keratosis 519080 007 L57.0 05831 Education about premaligna nt diagnosist hen treated with LN x 3patient tolerated wellwound care instructio n provided Neoplasm o f uncertain behavior of skin 12248268 D48.5 52048 Right lateral thigh- favor isk vs otherPatie nt admits to picking at skinTreate d with LN todayFollo w up as needed if persisting or growing in 4 weeks. Vitiligo 19139828 L80 1127 Chronicbil ateral arms, hands, axillae - patient noted 1 year ago but feels that patches are not growingwil l continue to monitor since not bothersome Discussed sun precaution s as noted above. Nevus spilus 325256470 D 22.9 1101 Benign appearance ; reassuranc e and education provided Health Concerns Section Related Observation LastModified by Organization Detai ls LastModified Time None Recorded Concern Status LastModified by Organization Details LastModified Time None Recorded Advance Directives Directive None Recorded Payers Insurance Date Sequence Insurance Name Policy Number Policy Cain Covered Member ID Cain Member ID Guarantor Name 02/02/2025 1 [place] [id number] Susieobdulia Alarcon [id number] Susie Alarcon 06/23/2018 1 *SELF PAY* Calles Notes Date Note Type Note Provider Name and Address Organization Details Recorded Time 08/05/2018 text/html ROS as noted in the HPI Mrs. Alarcon returns today for follow-up with a urodynamic study. Her cystoscopy was unremarkable with the exception of some bladder trabeculation. ASHLEY KINNEY MD [address] [place] [address], [phone], [facility] 08/05/2018 15:01:22 05/24/2019 text/html ROS as noted in the HPI New patient LOCATION: upper lip, back and mid chest DURATION: months SYMPTOMS: rough TREATMENTS: none buttocks x 5 years - painful Denies any other new, changing, or bleeding lesions, or other rashes, feels well , good mood and has no family history of melanoma. LYNDA RUELAS MD [address] [place] [address], [id number], [facility] 05/26/2019 22:01:32 06/02/2019 text/html ROS as noted in the HPI ESTABLISHED PATIENT 1) PT RETURNS TO CLINIC FOR SUTURE REMOVAL ON LEFT LOWER MEDIAL BUTTOCK BY DR. RUELAS. PATH SHOWED EIC. PT STATES AREA IS LOBSTER CATCHER BUT HAS HEALED WELL. Denies any other new, changing, or bleeding lesions, or other rashes, feels well, in a good mood, and has no family history of melanoma. CHANDNI WEISS PA-C [address] [place] [address], [id number], [facility] 06/02/2019 12:19:44 10/16/2023 text/html ROS as noted in the HPI JACQUELINE GARCIA MD [address] [place] [address], [phone], [facility] 10/16/2023 11:40:48 10/28/2024 text/html ROS as noted in the HPI New patient JOSE Chandni Weiss PA-C 05/2019 Patient presents to the clinic for a FSE to check spots all over her body to re-establish care. Patient is concerned with a dark brown spot in between breasts. Patient has white spots scattered on legs. Patient states they showed up after getting a covid vaccine. Patient stated that she had a Covid Vaccine series in April 2023. Patient is also around round up chemicals often. Patient stated she had a fall in June 2022 and had a big brown spot come up on her left underarm area after the fall followed by a rash. Patient wears hats, scarves, and hoodies when in direct sun. Patient states she has multiple places all over her body that she is concerned about. Patient used dark hair color in April and ever since has tons of hair loss. Patient started using Dove Intensive Repair shampoo and patient believes that caused more hair loss. Patient switched over to Cerave shampoo and thinning has stopped or lessened. Denies any other new, changing, or bleeding lesions, or other rashes, feels well, and has no family history of melanoma. SHABBIR HDEZ, CHILD ATTENDANT [address] [place], [phone], [place] [facility] 10/28/2024 13:16:10 OBGyn Episode No OBEpisode recorded.
--- NOTE | 2025-03-23 09:22 | PC.NURSE ---
RESP CARE NOTE: Patient charge for cardiac event monitor cancelled due to no data available on monitor.
== END 2025-02-14 23:59 | disposition home or self-care (01) ==
LOC: RT 16:34
PROVIDERS: PCP Nurse Practitioner Family; Visit Provider Family Medicine
DX: R55 Syncope and collapse (principal)
CPT/HCPCS: 93270